=== PATIENT | female | born 1940 | race Caucasian/White ===

== ENCOUNTER 2016-03-17 09:24 | Emergency (ER) | payer MEDICARE ==
[2016-03-17 10:25] VITALS: BP 231/101
[2016-03-17] MEDS ORDERED: Acetaminophen TAB* 325 MG PO ONE (10:43)
== END 2016-03-17 10:55 | disposition left against medical advice (07) ==
LOC: UCEAST 09:24
DX: N39.0 Urinary tract infection, site not specified (principal); Z53.21 Procedure and treatment not carried out due to patient leaving prior to being seen by health care provider

== ENCOUNTER 2016-06-28 21:13 | Observation (INO) | payer MEDICARE ==
[2016-06-28] MEDS ORDERED: NS 0.9% 1000 ML* 2,000 ML IV ONE (22:08)
[2016-06-28] MEDS ORDERED: Ondansetron INJ* 2 MG/ML VIAL IV ONE (22:13)
[2016-06-28 22:22] LABS: Hematocrit 36 % (35-47); Hemoglobin 11.8 g/dl (12.0-16.0); Mean Corpuscular HGB Conc 33 g/dl (31-36); Mean Corpuscular Hemoglobin 29 pg (27-31); Mean Corpuscular Volume 89 fL (80-97); Mean Platelet Volume 8 um3 (7.4-10.4); Red Blood Count 4.08 10^6/ul (4.0-5.4); Red Cell Distribution Width 16 % (10.5-15); White Blood Count 14.1 10^3/ul (3.5-10.8)
[2016-06-28 22:38] LABS: Albumin 3.2 g/dL (3.2-5.2); BUN/Creatinine Ratio 22.5 (8-20); C Reactive Protein 18.27 mg/L (< 5.00); Calcium 8.9 mg/dL (8.6-10.3); EGFR African American 47.9 (>60); EGFR Non-African American 37.3 (>60); Globulin 2.8 g/dL (2-4); Magnesium 1.9 mg/dL (1.9-2.7); Potassium 3.5 mmol/L (3.5-5.0); Total Bilirubin 0.4 mg/dL (0.2-1.0)
[2016-06-28 22:40] LABS: Troponin I 0.01 ng/mL (<0.04)
--- NOTE | 2016-06-28 22:47 | RAD ---
Indication: Syncope. Single frontal view of the chest performed at 2219 hours was reviewed. Comparison is made with previous exam dated December 16, 2015. No mediastinal shift is noted. Heart is of normal size and configuration. Lung mann appear clear. IMPRESSION: NO ACTIVE CARDIOPULMONARY DISEASE IS NOTED.
--- NOTE | 2016-06-28 22:48 | RAD ---
Indication: Left wrist injury 3 views of the left wrist demonstrates a nondisplaced fracture through the distal radius. Dorsal angulation is noted. IMPRESSION: Fracture of the distal radius metaphysis with dorsal angulation..
[2016-06-28 23:05] LABS: TSH (Thyroid Stimulating Horm) 11.51 mcIU/mL (0.34-5.60)
[2016-06-28] MEDS ORDERED: metroNIDAZOLE IV 500 MG/100ML* 500 MG/100 ML BAG IVPB ONE (23:51)
[2016-06-28] MEDS ORDERED: Ciprofloxacin 400MG IVPREMIX(* 400 MG/200 ML BAG IVPB ONE (23:51)
[2016-06-29] MEDS ORDERED: Iodixanol* (CONTRAST) 320 MG/ML 100 ML SDV IV ONE (00:09)
[2016-06-29] MEDS ORDERED: Morphine INJ* 4 MG/ML 1 ML SYRINGE IV ONE (01:30)
--- NOTE | 2016-06-29 04:20 | HP ---
H&P (Free Text) History and Physical: PCP: Grant Small MD Date/Time of Evaluation: 06/29/2016 0420 CC: syncope HPI: Mrs Zepeda is a 75YO female HX orthostatic hypotension w/ 2nd syncope who has been having constipation for the past few days progressing to included N/V today. She was upstairs at home when she developed the urge to defecate, stood and went down a flight of stairs noticing light-headed/wooziness. She made it to the restroom vanity and the next thing she awoke on the floor with L wrist pain. Her drove her to ED where a distal L radius FX was found. Work up was otherwise notable for a d-dimer >[address] chest/abd/pel W negative for PE or acute pathology. ECG NSR rate 76, no ischemia. WBCs are 14k 94% neutrophils likely representing demarginalization. BUN/cre are 31/1.38, baseline 30/0.8. TSH is 11.5. After arriving at [facility] [place], she had another episode of emesis. She denies black or bloody emesis or stool. Stool today has been loose, but not watery. PMedHx recurrent aspiration pneumonitis COPD on oxygen HTN HLD peripheral neuropathy orthostatic hypotension w/ 2nd syncope chronic LBP piriformis syndrome anxiety Ambulatory Orders ALPRAZolam TAB* [Xanax TAB*] 0.25 mg PO Q8HR PRN 03/17/13 Calcium Carbonate-Vitamin D [Calcium 500 + D 500-125 mg-Unit] 1 tab PO BID 03/17 Multivitamins/Minerals TAB* [Thera M Plus TAB*] 1 tab PO DAILY 03/17/13 Temazepam CAP* [Restoril CAP*] 15 - 30 mg PO BEDTIME PRN 03/17/13 Budesonide/Formote 160/4.5(NF) [Symbicort 160/4.5 (NF)] 2 puff INH BID 09/17/13 Gabapentin CAP(*) [Neurontin 300 CAP(*)] 600 mg PO QAM 07/23/14 oxyCODONE TAB* [Roxycodone TAB 5 mg*] 5 - 10 mg PO Q4H PRN 09/17/14 Gabapentin CAP(*) [Neurontin 300 CAP(*)] 900 mg PO BEDTIME 08/06/15 Valsartan TAB* [Diovan TAB*] 160 mg PO DAILY 08/06/15 Metoprolol Succinate XL TAB* [Toprol XL TAB*] 50 mg PO BID 12/16/15 Omeprazole CAP* [Prilosec CAP* 20 MG] 20 mg PO BID 12/16/15 amLODIPine TAB* [Norvasc TAB*] 5 mg PO DAILY 12/16/15 Gabapentin TAB(NF) 300 mg PO SEE INSTRUCTIONS 06/29/16 Methocarbamol* 500 mg PO TID 06/29/16 Allergies No Known Allergies Allergy (Verified 09/17/14 12:30) PSurgHx hysterectomy SocHx: former smoker w/ ~25PYHX, no alcohol or recreational drugs; lives with her ; full code status FamHx: Mother passed in her 50s 2nd CAD. Father passed in his 40s 2nd CAD. Sister w/ HX CAD. ROS: as above, otherwise reviewed and all were negative Constitutional: NAD, normally developed, overweight elderly white female vitals: Vital Signs Temp 36.2 C 06/28/16 21:17 Pulse 68 06/29/16 04:00 Resp 14 06/29/16 04:00 BP 101/50 06/29/16 04:00 Pulse Ox 99 06/29/16 04:00 Intake & Output 06/28/16 06/28/16 06/29/16 11:59 23:59 11:59 Intake Total 1999 Balance 1999 Weight 65.771 kg Intake: IV Fluids 1999 HEENM: atraumatic; sclera/conjunctiva: non-icteric/clear; hearing: clinically intact; oropharynx: clear, mucosa tacky Neck: soft tissue: non-tender; thyroid: normal Pulmonary: clear to auscultation bilaterally, good aeration, no accessory muscle use CV: RR/RR, normal S1S2, no carotid bruit, no jugular venous distention, 2+ B DP/ PT, no edema Abdominal: soft, non-distended, non-tender, no rebound/guarding/rigidity, normoactive bowel sounds, no hepatosplenomegaly or masses, no costovertebral angle tenderness Musculoskeletal: general: L wrist spint, otherwise grossly intact; gait: unsteady Integumental: normal appearance and texture of exposed skin Psychiatric orientation: AA&O to PPS affect: calm mood: cooperative eye contact: good content: reliable memory: absent regarding event responses: timely insight: good Testing: Lab Results 06/28/16 06/28/16 06/28/16 Range/Units 22:15 22:15 22:15 WBC 14.1 H (3.5-10.8) 10^3/ul RBC 4.08 (4.0-5.4) 10^6/ul Hgb 11.8 L (12.0-16.0) g/dl Hct 36 (35-47) % MCV 89 (80-97) fL MCH 29 (27-31) pg MCHC 33 (31-36) g/dl RDW 16 H (10.5-15) % Plt Count 280 (150-450) 10^3/ul MPV 8 (7.4-10.4) um3 Neut % (Auto) 94.4 H (38-83) % Lymph % (Auto) 4.7 L (25-47) % Brule % (Auto) 0.5 L (1-9) % Eos % (Auto) 0.2 (0-6) % Baso % (Auto) 0.2 (0-2) % Absolute Neuts (auto) 13.3 H (1.5-7.7) 10^3/ul Absolute Lymphs (auto) 0.7 L (1.0-4.8) 10^3/ul Absolute Monos (auto) 0.1 (0-0.8) 10^3/ul Absolute Eos (auto) 0 (0-0.6) 10^3/ul Absolute Basos (auto) 0 (0-0.2) 10^3/ul Absolute Nucleated RBC 0.01 10^3/ul Nucleated RBC % 0 INR (Anticoag Therapy) 0.86 L (0.89-1.11) APTT 24.8 L (26.0-36.3) seconds D-Dimer, Quantitative > 1050 H (Less Than 230) ng/mL Sodium 140 (133-145) mmol/L Potassium 3.5 (3.5-5.0) mmol/L Chloride 107 (101-111) mmol/L Carbon Dioxide 25 (22-32) mmol/L Anion Gap 8 (2-11) mmol/L BUN 31 H (6-24) mg/dL Creatinine 1.38 H (0.51-0.95) mg/dL Est GFR ( Amer) 47.9 (>60) Est GFR (Non-Af Amer) 37.3 (>60) BUN/Creatinine Ratio 22.5 H (8-20) Glucose 95 (70-100) mg/dL Lactic Acid (0.5-2.0) mmol/L Calcium 8.9 (8.6-10.3) mg/dL Magnesium 1.9 (1.9-2.7) mg/dL Total Bilirubin 0.40 (0.2-1.0) mg/dL AST 38 (13-39) U/L ALT 27 (7-52) U/L Alkaline Phosphatase 84 (34-104) U/L Total Creatine Kinase 213 (10-223) U/L CK-MB (CK-2) 5.3 (0.6-6.3) ng/mL Troponin I 0.01 (<0.04) ng/mL C-Reactive Protein 18.27 H (< 5.00) mg/L B-Natriuretic Peptide ( - 100) pg/mL Total Protein 6.0 L (6.4-8.9) g/dL Albumin 3.2 (3.2-5.2) g/dL Globulin 2.8 (2-4) g/dL Albumin/Globulin Ratio 1.1 (1-3) Lipase 14 (11.0-82.0) U/L TSH 11.51 H (0.34-5.60) mcIU/mL 06/28/16 06/28/16 Range/Units 22:15 22:15 WBC (3.5-10.8) 10^3/ul RBC (4.0-5.4) 10^6/ul Hgb (12.0-16.0) g/dl Hct (35-47) % MCV (80-97) fL MCH (27-31) pg MCHC (31-36) g/dl RDW (10.5-15) % Plt Count (150-450) 10^3/ul MPV (7.4-10.4) um3 Neut % (Auto) (38-83) % Lymph % (Auto) (25-47) % Brule % (Auto) (1-9) % Eos % (Auto) (0-6) % Baso % (Auto) (0-2) % Absolute Neuts (auto) (1.5-7.7) 10^3/ul Absolute Lymphs (auto) (1.0-4.8) 10^3/ul Absolute Monos (auto) (0-0.8) 10^3/ul Absolute Eos (auto) (0-0.6) 10^3/ul Absolute Basos (auto) (0-0.2) 10^3/ul Absolute Nucleated RBC 10^3/ul Nucleated RBC % INR (Anticoag Therapy) (0.89-1.11) APTT (26.0-36.3) seconds D-Dimer, Quantitative (Less Than 230) ng/mL Sodium (133-145) mmol/L Potassium (3.5-5.0) mmol/L Chloride (101-111) mmol/L Carbon Dioxide (22-32) mmol/L Anion Gap (2-11) mmol/L BUN (6-24) mg/dL Creatinine (0.51-0.95) mg/dL Est GFR ( Amer) (>60) Est GFR (Non-Af Amer) (>60) BUN/Creatinine Ratio (8-20) Glucose (70-100) mg/dL Lactic Acid 1.2 (0.5-2.0) mmol/L Calcium (8.6-10.3) mg/dL Magnesium (1.9-2.7) mg/dL Total Bilirubin (0.2-1.0) mg/dL AST (13-39) U/L ALT (7-52) U/L Alkaline Phosphatase (34-104) U/L Total Creatine Kinase (10-223) U/L CK-MB (CK-2) (0.6-6.3) ng/mL Troponin I (<0.04) ng/mL C-Reactive Protein (< 5.00) mg/L B-Natriuretic Peptide 164 H ( - 100) pg/mL Total Protein (6.4-8.9) g/dL Albumin (3.2-5.2) g/dL Globulin (2-4) g/dL Albumin/Globulin Ratio (1-3) Lipase (11.0-82.0) U/L TSH (0.34-5.60) mcIU/mL ECG, personally reviewed: NSR rate 76, no ischemia CXR, personally reviewed: IMPRESSION: NO ACTIVE CARDIOPULMONARY DISEASE IS NOTED. CT chest/abd/pel W, personally reviewed: IMPRESSION: Moderate emphysema. Increasing mild mediastinal and bilateral hilar adenopathy is nonspecific, possibly reactive. Small hiatal hernia. Gallstones. Questionable L adrenal adenoma is unchanged and may be followed up with non-emergent MRI as clinically indicated. Questionable sold L renal mass Vs hemorrhagic or proteinaceous cyst is unchanged and may be confirmed with ultrasound as clinically indicated. No definite acute pathology. XRY L wrist, personally reviewed: IMPRESSION: Fracture of the distal radius metaphysis with dorsal angulation. Impression: 75F HX orthostatic hypotension w/ 2nd syncope and recurrent aspiration pneumonitis presents with syncope, elevated WBCs, and L wrist FX DIAGNOSIS & PLAN Primary syncope consistent w/ HX of syncope 2nd orthostatic hypotension : telemetry : fall precautions N/V/loose stool w/ dehydration : suspect gastroenteritis vs fecal impaction : anti-emetics : stool softener : IVFs MAIKOL : suspect pre-renal 2nd dehydration : IVFs, trend L wrist FX : consider inpatient vs outpatient orthopedic surgery consult : pain control mildly elevated TSH : recommend rechecking in 3-4 weeks via PCP outpatient Secondary COPD : continue supplemental oxygen : albuterol nebs : mometasone/formoterol : tiotropium : incentive spirometry HTN : continue valsartan, metoprolol, & amlodipine HLD : low fat diet peripheral neuropathy : continue gabapentin chronic LBP : continue oxycodone & methocarbamol anxiety : continue alprazolam GERD : continue omeprazole Admission Rational: observation for syncope w/ L wrist FX DVTp: heparin SQ Code Status: full HCP:
[2016-06-29] MEDS ORDERED: ALPRAZolam TAB* 0.25 MG PO PRN (04:37)
[2016-06-29] MEDS ORDERED: Temazepam CAP* 15 MG PO PRN (04:37)
[2016-06-29] MEDS ORDERED: Albuterol 2.5 MG/3 ML NEB.SOL* (0.083%) INH PRN (05:14)
[2016-06-29] MEDS ORDERED: NS 0.9% 1000 ML* 1,000 ML IV SCH (05:15)
[2016-06-29] MEDS ORDERED: Ondansetron INJ* 2 MG/ML VIAL IV PRN (05:15)
--- NOTE | 2016-06-29 08:08 | ED ---
Arlyn Del Toro Salem, scribed for Javy Russo MD on 06/28/16 at 2204 . Syncope/Near Syncope - HPI Summary HPI Summary: Patient is a 75 y/o female who presents to the ED per EMS s/p syncope episode earlier today. She states she was on the way to the restroom when she had the episode (unwitnessed). She currently reports SOB, lightheadedness, dizziness, and loose stool. Pt states that she was constipated the last few days, but states she has had loose stool twice today, as well as vomiting. She denies blood in stool or tarry stool. Pt also denies CP. She also reports injury to left wrist. Pt denies taking blood thinners. - History Of Current Complaint Chief Complaint: EDSyncope Time Seen by Provider: 06/28/16 21:54 Hx Obtained From: Patient Onset/Duration: Gradual Onset, Lasting Hours, Resolved Timing: Intermittent Episode Lasting Context: Unwitnessed Aggravating Factor(s): Nothing Alleviating Factor(s): Nothing Associated Signs And Symptoms: Dizzy, Lightheadedness, Vomiting, Other - Loose stool. SOB. - Allergies/Home Medications Allergies/Adverse Reactions: Allergies Allergy/AdvReac Type Severity Reaction Status Date / Time No Known Allergies Allergy Verified 09/17/14 12:30 Home Medications: Home Medications Gabapentin TAB(NF) 300 mg PO SEE INSTRUCTIONS 06/29/16 [History Confirmed ] Methocarbamol* 500 mg PO TID 06/29/16 [History Confirmed 06/29/16] PMH/Surg Hx/FS Hx/Imm Hx Endocrine/Hematology History: Reports: Hx Anemia Denies: Hx Anticoagulant Therapy, Hx Diabetes, Hx Systemic Lupus Erythematosus, Hx Thyroid Disease Cardiovascular History: Reports: Hx Hypercholesterolemia, Hx Hypertension, Hx Syncope - PSYCHOGENIC SYNCOPE Denies: Hx Congestive Heart Failure, Hx Pacemaker/ICD, Other Cardiovascular Problems/Disorders Respiratory History: Reports: Hx Asthma, Hx Chronic Bronchitis, Hx Chronic Obstructive Pulmonary Disease (COPD), Hx Pneumonia, Other Respiratory Problems/ Disorders GI History: Reports: Hx Gastroesophageal Reflux Disease, Hx Gastrointestinal Bleed Denies: Hx Ulcer History: Reports: Hx Acute Renal Failure, Hx Renal Disease - HX OF ARF Musculoskeletal History: Reports: Hx Back Problems - back pain, Other Musculoskeletal History - OSTEOPENIA & FIBROMYALIGA Denies: Hx Rheumatoid Arthritis, Hx Osteoporosis Sensory History: Reports: Hx Contacts or Glasses Denies: Hx Hearing Aid Opthamlomology History: Reports: Hx Contacts or Glasses Neurological History: Reports: Hx Seizures - PSYCHOGENIC/VASOGENIC SEIZURES, Other Neuro Impairments/Disorders - 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 Thoracentesis, lung bx Hx Anesthesia Reactions: No - Immunization History Date of Tetanus Vaccine: n Date of Influenza Vaccine: ukn Infectious Disease History: Denies: Hx Clostridium Difficile, Hx Hepatitis, Hx Human Immunodeficiency Virus (HIV), Hx of Known/Suspected MRSA, Hx Shingles, Hx Tuberculosis, Hx Known/ Suspected VRE, Hx Known/Suspected VRSA, History Other Infectious Disease, Traveled Outside the [place] in Last 30 Days - Family History Known Family History: Positive: Renal Disease - Social History Alcohol Use: None Hx Substance Use: No Substance Use Type: Reports: None Hx Tobacco Use: Yes Smoking Status (MU): Former Smoker Type: Cigarettes Length of Time of Smoking/Using Tobacco: 40 YRS Have You Smoked in the Last Year: No Review of Systems Negative: Fever Negative: Chest Pain Positive: Shortness Of Breath Positive: Vomiting Positive: other - Loose stool. No blood in stool or tarry stool. Neurological: Other - Lightheadedness. Dizziness. Positive: Syncope All Other Systems Reviewed And Are Negative: Yes Physical Exam Triage Information Reviewed: Yes Vital Signs On Initial Exam: Initial Vitals Temp Pulse Resp BP Pulse Ox 97.1 F 75 16 85/46 88 06/28/16 21:17 06/28/16 21:17 06/28/16 21:17 06/28/16 21:17 06/28/16 21:17 Vital Signs Reviewed: Yes Appearance: Positive: No Pain Distress, Ill-Appearing - Moderately. Skin: Positive: Warm, Skin Color Reflects Adequate Perfusion, Dry Head/Face: Positive: Normal Head/Face Inspection Eyes: Positive: EOMI, ОЛЬГА ENT: Positive: Other - DMM. Neck: Positive: Supple, Nontender Respiratory/Lung Sounds: Positive: Clear to Auscultation, Breath Sounds Present Cardiovascular: Positive: RRR Abdomen Description: Positive: Soft, Other: - Mild diffuse abd tenderness. Bowel Sounds: Positive: Hypoactive Musculoskeletal: Positive: Normal, Strength/ROM Intact Neurological: Positive: Normal, Sensory/Motor Intact, Alert, Oriented to Person Place, Time Psychiatric: Positive: Affect/Mood Appropriate Diagnostics - Vital Signs Vital Signs Temp Pulse Resp BP Pulse Ox 06/28/16 21:17 97.1 F 75 16 85/46 88 - Laboratory Lab Results: Lab Results 06/28/16 06/28/16 06/28/16 Range/Units 22:15 22:15 22:15 WBC 14.1 H (3.5-10.8) 10^3/ul RBC 4.08 (4.0-5.4) 10^6/ul Hgb 11.8 L (12.0-16.0) g/dl Hct 36 (35-47) % MCV 89 (80-97) fL MCH 29 (27-31) pg MCHC 33 (31-36) g/dl RDW 16 H (10.5-15) % Plt Count 280 (150-450) 10^3/ul MPV 8 (7.4-10.4) um3 Neut % (Auto) 94.4 H (38-83) % Lymph % (Auto) 4.7 L (25-47) % Foard % (Auto) 0.5 L (1-9) % Eos % (Auto) 0.2 (0-6) % Baso % (Auto) 0.2 (0-2) % Absolute Neuts (auto) 13.3 H (1.5-7.7) 10^3/ul Absolute Lymphs (auto) 0.7 L (1.0-4.8) 10^3/ul Absolute Monos (auto) 0.1 (0-0.8) 10^3/ul Absolute Eos (auto) 0 (0-0.6) 10^3/ul Absolute Basos (auto) 0 (0-0.2) 10^3/ul Absolute Nucleated RBC 0.01 10^3/ul Nucleated RBC % 0 INR (Anticoag Therapy) 0.86 L (0.89-1.11) APTT 24.8 L (26.0-36.3) seconds D-Dimer, Quantitative > 1050 H (Less Than 230) ng/mL Sodium 140 (133-145) mmol/L Potassium 3.5 (3.5-5.0) mmol/L Chloride 107 (101-111) mmol/L Carbon Dioxide 25 (22-32) mmol/L Anion Gap 8 (2-11) mmol/L BUN 31 H (6-24) mg/dL Creatinine 1.38 H (0.51-0.95) mg/dL Est GFR ( Amer) 47.9 (>60) Est GFR (Non-Af Amer) 37.3 (>60) BUN/Creatinine Ratio 22.5 H (8-20) Glucose 95 (70-100) mg/dL Lactic Acid (0.5-2.0) mmol/L Calcium 8.9 (8.6-10.3) mg/dL Magnesium 1.9 (1.9-2.7) mg/dL Total Bilirubin 0.40 (0.2-1.0) mg/dL AST 38 (13-39) U/L ALT 27 (7-52) U/L Alkaline Phosphatase 84 (34-104) U/L Total Creatine Kinase 213 (10-223) U/L CK-MB (CK-2) 5.3 (0.6-6.3) ng/mL Troponin I 0.01 (<0.04) ng/mL C-Reactive Protein 18.27 H (< 5.00) mg/L B-Natriuretic Peptide ( - 100) pg/mL Total Protein 6.0 L (6.4-8.9) g/dL Albumin 3.2 (3.2-5.2) g/dL Globulin 2.8 (2-4) g/dL Albumin/Globulin Ratio 1.1 (1-3) Lipase 14 (11.0-82.0) U/L TSH 11.51 H (0.34-5.60) mcIU/mL 06/28/16 06/28/16 Range/Units 22:15 22:15 WBC (3.5-10.8) 10^3/ul RBC (4.0-5.4) 10^6/ul Hgb (12.0-16.0) g/dl Hct (35-47) % MCV (80-97) fL MCH (27-31) pg MCHC (31-36) g/dl RDW (10.5-15) % Plt Count (150-450) 10^3/ul MPV (7.4-10.4) um3 Neut % (Auto) (38-83) % Lymph % (Auto) (25-47) % Foard % (Auto) (1-9) % Eos % (Auto) (0-6) % Baso % (Auto) (0-2) % Absolute Neuts (auto) (1.5-7.7) 10^3/ul Absolute Lymphs (auto) (1.0-4.8) 10^3/ul Absolute Monos (auto) (0-0.8) 10^3/ul Absolute Eos (auto) (0-0.6) 10^3/ul Absolute Basos (auto) (0-0.2) 10^3/ul Absolute Nucleated RBC 10^3/ul Nucleated RBC % INR (Anticoag Therapy) (0.89-1.11) APTT (26.0-36.3) seconds D-Dimer, Quantitative (Less Than 230) ng/mL Sodium (133-145) mmol/L Potassium (3.5-5.0) mmol/L Chloride (101-111) mmol/L Carbon Dioxide (22-32) mmol/L Anion Gap (2-11) mmol/L BUN (6-24) mg/dL Creatinine (0.51-0.95) mg/dL Est GFR ( Amer) (>60) Est GFR (Non-Af Amer) (>60) BUN/Creatinine Ratio (8-20) Glucose (70-100) mg/dL Lactic Acid 1.2 (0.5-2.0) mmol/L Calcium (8.6-10.3) mg/dL Magnesium (1.9-2.7) mg/dL Total Bilirubin (0.2-1.0) mg/dL AST (13-39) U/L ALT (7-52) U/L Alkaline Phosphatase (34-104) U/L Total Creatine Kinase (10-223) U/L CK-MB (CK-2) (0.6-6.3) ng/mL Troponin I (<0.04) ng/mL C-Reactive Protein (< 5.00) mg/L B-Natriuretic Peptide 164 H ( - 100) pg/mL Total Protein (6.4-8.9) g/dL Albumin (3.2-5.2) g/dL Globulin (2-4) g/dL Albumin/Globulin Ratio (1-3) Lipase (11.0-82.0) U/L TSH (0.34-5.60) mcIU/mL Result Diagrams: 06/28/16 22:15 06/28/16 22:15 Lab Statement: Any lab studies that have been ordered have been reviewed, and results considered in the medical decision making process. - Radiology CXR Radiology Interpretation Completed By: Radiologist - IMPRESSION: NO ACTIVE CARDIOPULMONARY DISEASE IS NOTED. LEFT WRIST XR Radiology Interpretation Completed By: Radiologist - IMPRESSION: Fracture of the distal radius metaphysis with dorsal angulation.. - CT CHEST/ABD/PELVIS CT Interpretation Completed By: Radiologist - CT IMPRESSION: Moderate emphysema. Increasing mild mediastinal and bilateral hilar adenopathy is nonspecific, possibly reactive. Small hiatal hernia. Gallstones. Questionable left adrenal adenoma is unchanged and may be followed up with nonemergent MRI as clinically indicated. Questionable arsenio left renal mass versus hemorrhagic proteinaceous cyst, is unchanged and may be confirmed with ultrasound as clinically indicated. No definite acute pathology. - EKG 2118 EKG Interpretation: NSR @ 76 bpm. Flip T in 3. No ectopy. Re-Evaluation - Re-Evaluation First Eval Re-Evaluation Time: 22:11 Second Eval Re-Evaluation Time: 22:26 Third Eval Re-Evaluation Time: 00:45 Fourth Eval Re-Evaluation Time: 04:06 Course/Dx Course Of Treatment: NO CRITICAL CARE TIME Assessment/Plan: LEFT WRIST SPLINTED IN ED. AFTER IVF, PATIENT'S BP NORMALIZED. ADMIT HOSPITALIST STABLE. - Diagnoses Provider Diagnoses: Syncope, Hypotension, Vomiting and diarrhea, Wrist fracture, left - Physician Notifications Discussed Care Of Patient With: Dr. Gann (hospitalist) @ 0111. Will admit. Discharge - Discharge Plan Condition: Stable Disposition: ADMITTED TO [facility] documentation as recorded by the Arlyn norman Salem accurately reflects the service I personally performed and the decisions made by , Javy Russo MD.
[2016-06-29 08:21] LABS: Hematocrit 31 % (35-47); Hemoglobin 9.9 g/dl (12.0-16.0); Mean Corpuscular HGB Conc 32 g/dl (31-36); Mean Corpuscular Hemoglobin 29 pg (27-31); Mean Corpuscular Volume 91 fL (80-97); Mean Platelet Volume 8 um3 (7.4-10.4); Red Blood Count 3.38 10^6/ul (4.0-5.4); Red Cell Distribution Width 16 % (10.5-15); White Blood Count 10.7 10^3/ul (3.5-10.8)
[2016-06-29 08:31] LABS: BUN/Creatinine Ratio 25.2 (8-20); Calcium 7.6 mg/dL (8.6-10.3); EGFR African American 59.2 (>60)
--- NOTE | 2016-06-29 08:34 | RAD ---
INDICATION: Pain under right breast and right upper back. Relevant surgical history includes hysterectomy. COMPARISON: CT chest, abdomen and pelvis dated August 06, 2015 TECHNIQUE: Multidetector CT angiography images of the chest, abdomen and pelvis were obtained from the lung apices to the ischial tuberosities following the injection of 80 mL of Visipaque 320 intravenous contrast. ANGIOGRAPHIC FINDINGS: There are no filling defects of the centrilobular pulmonary arteries to indicate acute pulmonary embolism. There is coarse calcification at the anterior aortic ring. There is calcified atherosclerosis overlying the arch of the aorta. The thoracic aorta exhibits somewhat eccentric mural atheroma with a asymmetric extension along the posterior wall of the superiormost descending thoracic aorta (axial image 49 and sagittal image 64). Mixed attenuation atherosclerosis continues inferiorly into the abdominal aorta as far as the bifurcation. There is no pathologic dilatation or evidence of acute aortic dissection. Calcified atherosclerosis is seen as far as the iliac and proximal femoral arteries. NON-ANGIOGRAPHIC FINDINGS: CHEST: The lungs exhibit diffuse centrilobular emphysematous changes. At the right middle lobe (image 30) there is a 4 mm pulmonary nodule unchanged from the August 06, 2015 CT examination and faintly visible on the 1314 CT examination. There is mild bibasilar dependent hypoventilatory change There are no large pleural effusions. There is no mediastinal or hilar lymphadenopathy. The heart is very mildly enlarged. There is no pericardial effusion. ABDOMEN \T\ PELVIS: The liver, spleen and pancreas are grossly normal in appearance. Hyperdense material in the dependent portion of the gallbladder is most consistent with stones and/or sludge. There is no evidence of biliary obstruction or acute inflammatory change of the gallbladder. The right adrenal gland is normal. There is a 9 mm nodule at the left adrenal gland (coronal image 61) is unchanged since the sixth 1314 CT examination. The right kidney is normal in appearance without focal mass, calcification or signs of hydronephrosis. At the anterior aspect left upper renal pole there is a 1.7 cm enhancing nodule that corresponds to a similar 1.4 cm nodule seen on the August 06, 2015 CT examination and a 1.3 cm nodule in the July 26, 2014 CT examination. . The small and large bowel are not distended. There is no gross retroperitoneal or mesenteric lymphadenopathy. The uterus is surgically absent. There is evidence of healed rib fractures at the posterior right 10th 11th ribs.. There are no sinister bone lesions. IMPRESSION: 1. No CTA evidence of acute angiographic abnormality including pulmonary embolism or aortic dissection. 2. Again seen is a suspicious 1.6 cm nodule at the left kidney that is increased slightly in size from the [address] examinations. A potential slow-growing renal cell carcinoma is not excluded. Further imaging characterization can be made with contrast-enhanced MRI of the kidneys or renal ultrasound. 3. Additional chronic, degenerative and iatrogenic findings described in the body the report unlikely to be directly related to the patient's acute presentation.
[2016-06-29] MEDS ORDERED: Spiriva Inhaler DEVICE* 1 EACH DEVICE INH ONE (09:00)
[2016-06-29] MEDS: Gabapentin CAP(*) 300 MG PO SCH (09:11)
[2016-06-29] MEDS: Acetaminophen TAB* 325 MG PO PRN (09:11)
[2016-06-29] MEDS: Valsartan TAB* 160 MG PO SCH (09:11)
[2016-06-29] MEDS: Docusate CAP* 100 MG PO SCH ×2 (09:11→21:04)
[2016-06-29] MEDS: Omeprazole CAP* 20 MG PO SCH ×2 (09:11→21:04)
[2016-06-29] MEDS: Metoprolol Succinate XL TAB* 50 MG PO SCH ×2 (09:11→21:09)
[2016-06-29] MEDS: Methocarbamol TAB* 500 MG PO SCH ×5 (09:11→21:05)
[2016-06-29] MEDS: amLODIPine TAB* 5 MG PO SCH (09:11)
[2016-06-29] MEDS: Mometasone/Formoter 200/5 MDI INH SCH ×2 (09:14→20:00)
[2016-06-29] MEDS: Tiotropium CAP.INH* CAP.INH/18 MCG INH SCH (09:16)
[2016-06-29] MEDS: oxyCODONE TAB* 5 MG TAB PO PRN ×3 (10:10→21:38)
[2016-06-29] MEDS ORDERED: Levothyroxine TAB* 25 MCG TAB PO ONE (11:19)
[2016-06-29] MEDS ORDERED: NS 0.9% 1000 ML* 1,000 ML IV ONE (11:33)
[2016-06-29 11:56] LABS: Urine Bacteria Absent (Absent); Urine Bilirubin Negative (Negative); Urine Glucose Negative (Negative); Urine Nitrite Negative (Negative)
[2016-06-29] MEDS: NS 0.9% 1000 ML* 1,000 ML IV SCH (18:12)
--- NOTE | 2016-06-29 18:12 | PN ---
Subjective Date of Service: 06/29/16 Interval History: Feels better. Appetite OK. Objective Active Medications: Acetaminophen (Tylenol Tab*) 650 mg PO Q6H PRN PRN Reason: FEVER/PAIN Last Admin: 06/29/16 09:11 Dose: 650 mg Albuterol (Ventolin 2.5 Mg/3 Ml Neb.Rosana*) 2.5 mg INH Q2H PRN PRN Reason: SOB/WHEEZING Alprazolam (Xanax Tab*) 0.25 mg PO Q8HR PRN PRN Reason: ANXIETY Amlodipine Besylate (Norvasc Tab*) 5 mg PO DAILY [facility] Last Admin: 06/29/16 09:11 Dose: 5 mg Docusate Sodium (Colace Cap*) 200 mg PO BID [facility] Last Admin: 06/29/16 09:11 Dose: 200 mg Gabapentin (Neurontin Cap(*)) 600 mg PO QAM [facility] Last Admin: 06/29/16 09:11 Dose: 600 mg Gabapentin (Neurontin Cap(*)) 900 mg PO BEDTIME [facility] Heparin Sodium (Porcine) (Heparin Vial(*)) 5,000 units SUBCUT Q8HR [facility] Sodium Chloride (Ns 0.9% 1000 Ml*) 1,000 mls @ 50 mls/hr IV PER RATE [facility] Levothyroxine Sodium (Synthroid Tab*) 25 mcg PO DAILY@0600 [facility] Methocarbamol (Robaxin Tab*) 500 mg PO TID [facility] Last Admin: 06/29/16 15:42 Dose: 500 mg Metoprolol Succinate (Toprol Xl Tab*) 50 mg PO BID [facility] Last Admin: 06/29/16 09:11 Dose: 50 mg Mometasone Furoate/Formoterol Fumar (Dulera 200/5 Mdi*) 2 puff INH BID [facility] Last Admin: 06/29/16 09:14 Dose: 2 puff Omeprazole (Prilosec Cap*) 20 mg PO BID [facility] Last Admin: 06/29/16 09:11 Dose: 20 mg Ondansetron HCl (Zofran Inj*) 4 mg IV Q6H PRN PRN Reason: NAUSEA Last Admin: 06/29/16 12:13 Dose: 4 mg Oxycodone HCl (Roxycodone Tab*) 5 mg PO Q4H PRN PRN Reason: PAIN Last Admin: 06/29/16 16:35 Dose: 5 mg Temazepam (Restoril Cap*) 15 mg PO BEDTIME PRN PRN Reason: SLEEP Tiotropium [place] (Spiriva Cap.Inh*) 1 cap INH DAILY [facility] Last Admin: 06/29/16 09:16 Dose: 1 can Tramadol HCl (Ultram*) 50 mg PO Q6H PRN PRN Reason: PAIN Valsartan (Diovan Tab*) 160 mg PO DAILY [facility] Last Admin: 06/29/16 09:11 Dose: 160 mg Vital Signs 06/29/16 06/29/16 06/29/16 05:30 06:00 06:10 Temperature Pulse Rate 67 70 71 Respiratory Rate Blood Pressure 93/52 97/29 109/33 (mmHg) O2 Sat by Pulse 97 97 97 Oximetry 06/29/16 06/29/16 06/29/16 06:30 07:00 08:00 Temperature Pulse Rate 71 67 71 Respiratory 20 19 18 Rate Blood Pressure 114/47 112/69 (mmHg) O2 Sat by Pulse 97 100 100 Oximetry 06/29/16 06/29/16 06/29/16 08:09 08:42 08:43 Temperature Pulse Rate 65 70 Respiratory 15 20 Rate Blood Pressure 152/56 163/57 (mmHg) O2 Sat by Pulse 99 100 Oximetry 06/29/16 06/29/16 06/29/16 08:44 09:00 10:00 Temperature Pulse Rate 68 67 Respiratory 18 10 Rate Blood Pressure 153/59 (mmHg) O2 Sat by Pulse 100 100 Oximetry 06/29/16 06/29/16 06/29/16 10:15 11:00 11:44 Temperature Pulse Rate 74 66 62 Respiratory 17 11 20 Rate Blood Pressure 132/45 142/55 (mmHg) O2 Sat by Pulse 99 100 97 Oximetry 06/29/16 06/29/16 06/29/16 12:00 13:00 14:00 Temperature Pulse Rate 67 69 72 Respiratory 20 14 20 Rate Blood Pressure (mmHg) O2 Sat by Pulse 93 93 94 Oximetry 06/29/16 06/29/16 06/29/16 15:00 15:47 16:00 Temperature Pulse Rate 62 68 Respiratory 11 16 18 Rate Blood Pressure 128/95 (mmHg) O2 Sat by Pulse 100 98 Oximetry 06/29/16 06/29/16 17:00 17:52 Temperature 97.7 F Pulse Rate 66 75 Respiratory 21 16 Rate Blood Pressure 150/67 (mmHg) O2 Sat by Pulse 99 98 Oximetry Oxygen Devices in Use Now: Nasal Cannula Appearance: Alert, sitting up in ICU bed. In good spirits. Looks comfortable. Ears/Nose/Mouth/Throat: Clear Oropharnyx, Mucous Membranes Moist Neck: NL Appearance and Movements; NL JVP, No Thyroid Enlargement, Masses Respiratory: Symmetrical Chest Expansion and Respiratory Effort, Clear to Auscultation, Clear to Percussion Abdominal: NL Sounds; No Tenderness; No Distention, No Hepatosplenomegaly Extremities: No Edema, No Clubbing, Cyanosis, - Skin: No Rash or Ulcers, No Nodules or Sclerosis, - Neurological: Alert and Oriented x 3, NL Sensation Result Diagrams: 06/29/16 08:05 06/29/16 08:05 Additional Lab and Data: Lab Results 06/28/16 06/28/16 06/28/16 Range/Units 22:15 22:15 22:15 WBC 14.1 H (3.5-10.8) 10^3/ul RBC 4.08 (4.0-5.4) 10^6/ul Hgb 11.8 L (12.0-16.0) g/dl Hct 36 (35-47) % MCV 89 (80-97) fL MCH 29 (27-31) pg MCHC 33 (31-36) g/dl RDW 16 H (10.5-15) % Plt Count 280 (150-450) 10^3/ul MPV 8 (7.4-10.4) um3 Neut % (Auto) 94.4 H (38-83) % Lymph % (Auto) 4.7 L (25-47) % Cecil % (Auto) 0.5 L (1-9) % Eos % (Auto) 0.2 (0-6) % Baso % (Auto) 0.2 (0-2) % Absolute Neuts (auto) 13.3 H (1.5-7.7) 10^3/ul Absolute Lymphs (auto) 0.7 L (1.0-4.8) 10^3/ul Absolute Monos (auto) 0.1 (0-0.8) 10^3/ul Absolute Eos (auto) 0 (0-0.6) 10^3/ul Absolute Basos (auto) 0 (0-0.2) 10^3/ul Absolute Nucleated RBC 0.01 10^3/ul Nucleated RBC % 0 INR (Anticoag Therapy) 0.86 L (0.89-1.11) APTT 24.8 L (26.0-36.3) seconds D-Dimer, Quantitative > 1050 H (Less Than 230) ng/mL Sodium 140 (133-145) mmol/L Potassium 3.5 (3.5-5.0) mmol/L Chloride 107 (101-111) mmol/L Carbon Dioxide 25 (22-32) mmol/L Anion Gap 8 (2-11) mmol/L BUN 31 H (6-24) mg/dL Creatinine 1.38 H (0.51-0.95) mg/dL Est GFR ( Amer) 47.9 (>60) Est GFR (Non-Af Amer) 37.3 (>60) BUN/Creatinine Ratio 22.5 H (8-20) Glucose 95 (70-100) mg/dL Lactic Acid (0.5-2.0) mmol/L Calcium 8.9 (8.6-10.3) mg/dL Magnesium 1.9 (1.9-2.7) mg/dL Total Bilirubin 0.40 (0.2-1.0) mg/dL AST 38 (13-39) U/L ALT 27 (7-52) U/L Alkaline Phosphatase 84 (34-104) U/L Total Creatine Kinase 213 (10-223) U/L CK-MB (CK-2) 5.3 (0.6-6.3) ng/mL Troponin I 0.01 (<0.04) ng/mL C-Reactive Protein 18.27 H (< 5.00) mg/L B-Natriuretic Peptide ( - 100) pg/mL Total Protein 6.0 L (6.4-8.9) g/dL Albumin 3.2 (3.2-5.2) g/dL Globulin 2.8 (2-4) g/dL Albumin/Globulin Ratio 1.1 (1-3) Lipase 14 (11.0-82.0) U/L TSH 11.51 H (0.34-5.60) mcIU/mL 06/28/16 06/28/16 Range/Units 22:15 22:15 WBC (3.5-10.8) 10^3/ul RBC (4.0-5.4) 10^6/ul Hgb (12.0-16.0) g/dl Hct (35-47) % MCV (80-97) fL MCH (27-31) pg MCHC (31-36) g/dl RDW (10.5-15) % Plt Count (150-450) 10^3/ul MPV (7.4-10.4) um3 Neut % (Auto) (38-83) % Lymph % (Auto) (25-47) % Cecil % (Auto) (1-9) % Eos % (Auto) (0-6) % Baso % (Auto) (0-2) % Absolute Neuts (auto) (1.5-7.7) 10^3/ul Absolute Lymphs (auto) (1.0-4.8) 10^3/ul Absolute Monos (auto) (0-0.8) 10^3/ul Absolute Eos (auto) (0-0.6) 10^3/ul Absolute Basos (auto) (0-0.2) 10^3/ul Absolute Nucleated RBC 10^3/ul Nucleated RBC % INR (Anticoag Therapy) (0.89-1.11) APTT (26.0-36.3) seconds D-Dimer, Quantitative (Less Than 230) ng/mL Sodium (133-145) mmol/L Potassium (3.5-5.0) mmol/L Chloride (101-111) mmol/L Carbon Dioxide (22-32) mmol/L Anion Gap (2-11) mmol/L BUN (6-24) mg/dL Creatinine (0.51-0.95) mg/dL Est GFR ( Amer) (>60) Est GFR (Non-Af Amer) (>60) BUN/Creatinine Ratio (8-20) Glucose (70-100) mg/dL Lactic Acid 1.2 (0.5-2.0) mmol/L Calcium (8.6-10.3) mg/dL Magnesium (1.9-2.7) mg/dL Total Bilirubin (0.2-1.0) mg/dL AST (13-39) U/L ALT (7-52) U/L Alkaline Phosphatase (34-104) U/L Total Creatine Kinase (10-223) U/L CK-MB (CK-2) (0.6-6.3) ng/mL Troponin I (<0.04) ng/mL C-Reactive Protein (< 5.00) mg/L B-Natriuretic Peptide 164 H ( - 100) pg/mL Total Protein (6.4-8.9) g/dL Albumin (3.2-5.2) g/dL Globulin (2-4) g/dL Albumin/Globulin Ratio (1-3) Lipase (11.0-82.0) U/L TSH (0.34-5.60) mcIU/mL Assess/Plan/Problems-Billing Assessment: - Patient Problems (1) Vasovagal syncope Current Visit: Yes Status: Acute Code(s): R55 - SYNCOPE AND COLLAPSE SNOMED Code(s): 742311468 Comment: Episode occurred when she was hurrying to the BR to have a BM and then had some emesis several times. She states she has had numerous episodes of syncope due to orthostatic hypotension in the past. Extra liter NSS given on due to her dizziness when standing on 06/29. (2) COPD (chronic obstructive pulmonary disease) Current Visit: No Status: Chronic Priority: Medium Code(s): J44.9 - CHRONIC OBSTRUCTIVE PULMONARY DISEASE, UNSPECIFIED SNOMED Code(s): 70839084 Comment: Stable. On O2 at home. PRN albuterol available. Continue Spiriva. (3) Hypertension Current Visit: No Status: Chronic Priority: Medium Code(s): I10 - ESSENTIAL (PRIMARY) HYPERTENSION SNOMED Code(s): 89517553 Comment: BP well controlled. Continue valsartan, metoprolol. (4) Hypothyroid Current Visit: Yes Status: Acute Code(s): E03.9 - HYPOTHYROIDISM, UNSPECIFIED SNOMED Code(s): 72625380 Comment: Several high TSH levels in her record. Start levothryoxine 25 mcg on 06/29. Status and Disposition: Monitor orthostatic BP, gait.
[2016-06-29] MEDS: traMADol TAB* 50 MG PO PRN (18:34)
[2016-06-29] MEDS ORDERED: Gabapentin CAP(*) 300 MG PO SCH (21:00)
[2016-06-30] MEDS ORDERED: Levothyroxine TAB* 25 MCG TAB PO SCH (06:00)
[2016-06-30] MEDS: Heparin VIAL(*) 5000 UNITS/ML VIAL (FIVE THOUSAND) SUBCUT SCH ×2 (06:14→14:38)
[2016-06-30] MEDS: Tiotropium CAP.INH* CAP.INH/18 MCG INH SCH (08:13)
[2016-06-30] MEDS: Mometasone/Formoter 200/5 MDI INH SCH (08:13)
[2016-06-30] MEDS: amLODIPine TAB* 5 MG PO SCH (08:24)
[2016-06-30] MEDS: Gabapentin CAP(*) 300 MG PO SCH (08:24)
[2016-06-30] MEDS: Docusate CAP* 100 MG PO SCH (08:24)
[2016-06-30] MEDS: Methocarbamol TAB* 500 MG PO SCH ×2 (08:25→14:38)
[2016-06-30] MEDS: Valsartan TAB* 160 MG PO SCH (08:26)
[2016-06-30] MEDS: Metoprolol Succinate XL TAB* 50 MG PO SCH (08:26)
[2016-06-30] MEDS: Omeprazole CAP* 20 MG PO SCH (08:26)
[2016-06-30] MEDS: oxyCODONE TAB* 5 MG TAB PO PRN (08:28)
[2016-06-30] MEDS: Acetaminophen TAB* 325 MG PO PRN (11:05)
[2016-06-30] MEDS: traMADol TAB* 50 MG PO PRN (11:05)
[2016-06-30] MEDS: NS 0.9% 1000 ML* 1,000 ML IV SCH (14:38)
[2016-06-30 16:13] VITALS: BP 162/84
--- NOTE | 2016-06-30 22:50 | CONS ---
ORTHOPEDIC CONSULTATION: DATE OF CONSULT/DICTATION: 06/30/16 ADMITTING PROVIDER: Dr. Yin. ATTENDING ORTHOPEDIST: Dr. Irizarry (DICTATED BY KATHIA TARIQ) CHIEF COMPLAINT: Left wrist pain, status post fall. HISTORY OF PRESENT ILLNESS: The patient is a 75-year-old female who had an episode of orthostatic hypotension and mechanical fall on the date of admission , 06/29/16. She fell in her bathroom and awoke with left wrist pain. She was brought to the emergency department by her where x-rays of the wrist revealed a nondisplaced mildly dorsal angulated distal radius fracture. She was then splinted during her hospitalization here. She is scheduled to be discharged in roughly [address] Yin, and he was requesting orthopedic evaluation of the wrist and followup in the office with Dr. Irizarry. PAST MEDICAL HISTORY: Significant for history of aspiration pneumonitis, COPD, hypertension, hyperlipidemia, history of orthostatic hypotension, piriformis syndrome, anxiety, history of peripheral neuropathy. PAST SURGICAL HISTORY: She has had a hysterectomy. MEDICATIONS: 1. Xanax. 2. Calcium. 3. Multivitamin. 4. Restoril. 5. Symbicort. 6. Gabapentin. 7. Oxycodone. 8. Valsartan. 9. Metoprolol. 10. Omeprazole. 11. Amlodipine. 12. Methocarbamol. ALLERGIES: No known drug allergies. SOCIAL HISTORY: She used to smoke cigarettes. She denies use of alcohol or recreational drugs. Lives with her . ORTHOPEDIC PHYSICAL EXAMINATION: The patient currently has a well-formed, well - padded left upper extremity wrist splint on the arm. She has some mild swelling of the left thumb with mild ecchymosis. The remainder of her fingers are minimally edematous. She is able to move them all and has full sensation with good capillary refill in all digits. Her wrist pain is minimal to moderate at worse. DIAGNOSTIC STUDIES/LAB DATA: X-ray examination reviewed does show a distal radius fracture with mild dorsal angulation. She has advanced CMC arthritis noted as well. IMPRESSION: Distal radius fracture. PLAN: The patient is to be discharged within the next hour. I will make Dr. Irizarry aware of this patient. She may or may not need additional reduction and casting, although the current position may be adequate. This is the patient's nondominant hand. I will alert the office that this patient will require a followup in the office within [address] Irizarry. KATHIA TARIQ [id number]/CPS #: [id number] MTDD
--- NOTE | 2016-07-04 07:06 | PN ---
Hospitalist Progress Note . HOSPITALIST DISCHARGE NOTE: See dc instructions and summary by me. Patient stable for dc dc instructions reviewed with the patient at the bedside. DC patient home today.
--- NOTE | 2016-07-04 08:57 | DS ---
CC: Triny Small MD; Celso Irizarry MD DISCHARGE SUMMARY: DATE OF ADMISSION: 06/29/16 DATE OF DISCHARGE: 06/30/16 STATUS DURING HOSPITALIZATION: Inpatient. PRIMARY CARE PROVIDER: Triny Small MD CONSULTING ORTHOPEDIC SURGEON: Celso Irizarry MD, Orthopedic Surgery, [facility]. PRINCIPAL DISCHARGE DIAGNOSIS: Vasovagal syncope in the setting of ongoing illness with fall and fr acture of her left wrist - followup with Orthopedic Surgery is arranged. SECONDARY DIAGNOSES: 1. Recurrent aspiration pneumonitis. 2. Chronic obstructive pulmonary disease - on oxygen. 3. Hypertension. 4. Hyperlipidemia. 5. Peripheral neuropathy. 6. Orthostatic hypotension secondary to syncope in the past. 7. Chronic low back pain. 8. Piriformis syndrome. 9. Anxiety disorder. DISCHARGE MEDICATION REGIMEN: 1. Represcribed Synthroid 25 mcg by mouth daily. 2. Oxycodone 5 mg by mouth every 4 hours as needed, not to exceed 4 doses per day. 3. Tiotropium. 4. Spiriva 1 inhalation once daily. 5. Acetaminophen 650 mg by mouth every 6 hours as needed. 6. Restoril 15 or 30 mg by mouth at bedtime as needed. 7. Multivitamin 1 tablet by mouth once daily. 8. Calcium carbonate with vitamin D 500/125 strength 1 tablet by mouth once daily. 9. Alprazolam 0.25 mg by mouth every 8 hours as needed. 10. Budesonide/formoterol 160/4.5 - Symbicort - 2 puffs inhaled daily. 11. Gabapentin 600 mg by mouth in the morning/900 mg by mouth at bedtime. 12. Diovan 160 mg by mouth daily (valsartan). 13. Amlodipine 5 mg by mouth daily. 14. Omeprazole 20 mg by mouth twice daily. 15. Metoprolol XL 50 mg by mouth twice daily. 16. Methocarbamol 500 mg by mouth 3 times daily. 17. Roxicodone - separate from prescribed dose above - 5 or 10 mg every 4 hours as needed, not to e xceed 4 mg per day. HISTORY OF PRESENT ILLNESS AND HOSPITAL COURSE: Please see the H and P by Dr. Gary Gann on 0 06/29/16. In brief, Ms. Zepeda is a 75-year-old female with orthostatic hypotension and secondary sy ncope who has been having constipation and nausea and vomiting prior to admission. She was upstairs at home when she developed the urge to defecate and went down a flight of stairs, noticing lighthea dedness and "wooziness." The patient came to the rest room and the next thing she awoke on the floo r with left wrist pain. The patient's drove her to the emergency room, where she was diagno sed with a distal left radius fracture. The patient did have an elevated D-dimer prompting a CT ches t, abdomen and pelvis with contrast which was negative for PE or other pathology. The patient had n o ischemia on EKG. She had white blood cell count of 14,000 with left shift and neutrophilia likely representing demarginalization. The patient's BUN and creatinine were at baseline. Her TSH was el evated and apparently I believe that she was not consistently taking her thyroid medications, so thi s was reapplied. The patient did well overnight. She had no further symptomatology. She was seen by Orthopedic surg marcos who noted the fracture is nondisplaced and likely could be kept as is, but that the patient coul d seek an outpatient neurology consultation with Dr. Irizarry and that they would provide their contac t information to the patient. Ms. Zepeda will follow up with Dr. Small next week on Monday to ass ure that she is feeling at baseline. We discussed the possibility of a home health monitor (Medic Alert bracelet) that when she feels poo rly she can call for help if she needs. She said she would consider this, but I do not believe she was ready to act and wanted to talk to Dr. Small further about it. TIME SPENT: Total time taken to discharge Ms. Zepeda was 40 minutes, greater than half the time was spent going over the discharge instructions at the bedside and explaining [id number] instru ctions. The patient was stable on discharge. [id number]/[facility] #: [id number]
== END 2016-06-30 16:55 | disposition home or self-care (01) ==
LOC: ED 21:13 → INTOOBSV 06-29 05:02 → ICU 06-29 05:02 → UNDOADMIN 06-29 05:02 → MED 06-29 17:39 → OBSVTOIN 06-29 18:16 → INTOOBSV 06-29 18:16
PROVIDERS: ADMIT Hospitalist; ATTEND Internal Medicine
DX: R55 Syncope and collapse (principal); I95.1 Orthostatic hypotension; E86.0 Dehydration; R11.2 Nausea with vomiting, unspecified; R19.7 Diarrhea, unspecified; N17.9 Acute kidney failure, unspecified; S59.202A Unspecified physeal fracture of lower end of radius, left arm, initial encounter for closed fracture; W18.11XA Fall from or off toilet without subsequent striking against object, initial encounter; Y92.002 Bathroom of unspecified non-institutional (private) residence as the place of occurrence of the external cause; J44.9 Chronic obstructive pulmonary disease, unspecified; I10 Essential (primary) hypertension; E78.5 Hyperlipidemia, unspecified; G62.9 Polyneuropathy, unspecified; M54.5 Low back pain; G89.29 Other chronic pain; I51.7 Cardiomegaly; K21.9 Gastro-esophageal reflux disease without esophagitis; R94.6 Abnormal results of thyroid function studies; Z87.891 Personal history of nicotine dependence; Z79.899 Other long term (current) drug therapy; R06.02 Shortness of breath; R42 Dizziness and giddiness
CPT/HCPCS: 36415; 71010; 71275; 74177; 80048; 80053; 81003; 81015; 82270; 82550; 82553; 83605; 83690; 83735; 83880; 84443; 84484; 85025; 85379; 85610; 85730; 86140; 87040; 93005; 94640; 94760; 96361; 96365; 96366; 96367; 96375; 96376; 99284; A9270-GY; G0378; G8978-GP-CH; G8978-GP-CI; G8979-GP-CH; G8980-GP-CH; G8980-GP-CI; J0744; J1644; J2270; J2405; Q9967

== ENCOUNTER 2016-07-12 11:55 | Day surgery (SDC) | payer MEDICARE ==
--- NOTE | 2016-07-05 06:56 | HP ---
HISTORY AND PHYSICAL: DATE OF ADMISSION/SURGERY: 07/12/16 DATE OF OFFICE VISIT: 07/04/16 SURGEON: Camille Gibbs MD (DICTATED BY KATHIA HERMAN) PROCEDURE: ORIF of the left wrist. CHIEF COMPLAINT: Left wrist pain. HISTORY OF PRESENT ILLNESS: Ms. Zepeda is a 75-year-old female, who had an orthostatic hypotension episode last week causing her to faint, she landed on her left wrist. She was taken to the emergency department where she had x-rays taken, told she had a distal radius fracture, so she was placed into a splint. She is here today for followup. PAST MEDICAL HISTORY: COPD, hypothyroidism, hypertension, GERD, and kidney disease. PAST SURGICAL HISTORY: Cataract removal, hysterectomy, bilateral wrist arthroscopies. CURRENT MEDICATIONS: 1. Methocarbamol. 2. Gabapentin. 3. Cymbalta. 4. Synthroid. 5. Xanax. 6. Metoprolol. 7. Symbicort. 8. Spiriva. 9. Omeprazole. 10. Temazepam. 11. Lipitor. 12. Amlodipine. 13. Diovan. 14. Oxycodone. ALLERGIES: None. FAMILY HISTORY: Heart disease and colon cancer. SOCIAL HISTORY: She is a 75-year-old female, she lives with her . She is a former smoker. Denies use of drugs or alcohol. REVIEW OF SYSTEMS: A complete 14-point review of systems was reviewed with the patient. Positive for a recent syncopal episode. Positive for shortness of breath and COPD. Positive for hypothyroidism. She denies any history of anesthesia problems. She denies history of DVT, PE, hepatitis C, or HIV. PHYSICAL EXAMINATION GENERAL: She is well-developed, well-nourished, in no acute distress. VITAL SIGNS: She stands 5 feet tall, weighs 145 pounds. Her blood pressure is 154/94, heart rate is 82. HEENT: Normocephalic, atraumatic. NECK: Supple. No palpable lymph nodes. PULMONARY: The lungs are clear to auscultation bilaterally. CARDIO: Regular rate and rhythm. Strong S1, S2. ABDOMEN: Soft, nontender, nondistended. NEUROLOGIC: She is alert and oriented x3. Cranial nerves II through XII are intact. MUSCULOSKELETAL: Left upper extremity: She has tenderness to palpation along the left medial and lateral wrist with swelling. She is able to move all fingers. She has good capillary refill. 2+ distal radius pulse. She has full range of motion of her left elbow, left shoulder, decreased range of motion of the left wrist. DIAGNOSTIC STUDIES: X-rays of the left wrist show a left distal radius fracture. ASSESSMENT AND PLAN: Ms. Zepeda is a 75-year-old female with complaints of left wrist pain after she fell a week ago, landing on her left wrist suffering left distal radius fracture. We are awaiting respiratory clearance from her primary care physician and we will likely proceed with an ORIF of the left wrist next week. We will have her follow with Dr. Gibbs 10 to 14 days after the surgery. KATHIA HERMAN [id number]/CPS #: [id number] MTDD
[~2016-07-12 11:55] MED LIST: Buffered Lidocaine 1% SYRIN* 5 ML/SYR SYRINGE INTRADERM ONE; Buffered Lidocaine 1% SYRIN* 5 ML/SYR SYRINGE ONE; Famotidine IV* 10 MG/ML 2 ML (20 mg) IV ONE; Famotidine IV* 10 MG/ML 2 ML (20 mg) ONE; Metoclopramide TAB* 10 MG ONE; Metoclopramide TAB* 10 MG PO ONE; ceFAZolin 2 GM PREMIX(*) 2 GM/50 ML BAG IVPB ONE
[2016-07-12] MEDS ORDERED: fentaNYL* 50 MCG/ML 2 ML VIAL (100 MCG VIAL) ONE ×3 (12:53→17:16)
[2016-07-12] MEDS ORDERED: Ketorolac INJ* 30 MG/ML 1 ML VIAL ONE (12:53)
[2016-07-12] MEDS ORDERED: Propofol* 10 MG/ML 20 ML BTL IV PUSH ONE (12:53)
[2016-07-12] MEDS ORDERED: Lidocaine 2% PF * 5 ML VIAL ONE (12:53)
[2016-07-12] MEDS ORDERED: KETAMINE HCL* 50 MG/ML 10 ML VIAL ONE (12:53)
[2016-07-12] MEDS ORDERED: Ondansetron INJ* 2 MG/ML VIAL ONE (12:53)
[2016-07-12] MEDS ORDERED: Dexamethasone IV* 4 MG/ML 1 ML (4 MG) ONE (12:53)
[2016-07-12] MEDS ORDERED: Midazolam* 1 MG/ML 5 ML VIAL (5 MG) ONE (12:53)
[2016-07-12] MEDS ORDERED: Bupivacaine 0.5% SDV PF* 30 ML VIAL ONE (15:13)
[2016-07-12] MEDS ORDERED: Ondansetron INJ* 2 MG/ML VIAL IV PRN (17:14)
[2016-07-12] MEDS ORDERED: Levalbuterol 0.63MG/3ML NEB INH PRN (17:14)
[2016-07-12] MEDS ORDERED: HYDROmorphone* 1 MG/ML 1 ML SYR IV PRN (17:14)
[2016-07-12] MEDS ORDERED: oxyCODONE/Acetamin 5/325 MG* TAB PO PRN (17:14)
[2016-07-12] MEDS ORDERED: oxyCODONE/Acetamin 5/325 MG* TAB ONE (17:16)
[2016-07-12] MEDS: fentaNYL* 50 MCG/ML 2 ML VIAL (100 MCG VIAL) IV PRN ×3 (17:18→17:54)
[2016-07-12 20:23] VITALS: BP 157/67
--- NOTE | 2016-07-13 08:46 | OP ---
OPERATIVE NOTE: DATE OF OPERATION: 07/12/16 - [facility] DATE OF : 40 ATTENDING SURGEON: Camille Gibbs MD. SECOND MATE: KATHIA Ward. ANESTHESIOLOGIST: Dr. Fuller. ANESTHESIA: General. PRE-OP DIAGNOSIS: Comminuted displaced fracture of the left distal radius. POST-OP DIAGNOSIS: As above. OPERATIVE PROCEDURE: Open reduction and internal fixation of the 3-part left comminuted displaced distal radius fracture. HARDWARE USED: Synthes volar distal radius locking plate, this is the LCP plate , 3- hole shaft and a 6-hole head, 2.4 locking screws were used x4, 2.4 cortical screws x3, and one 2.7 cortical screw. COMPLICATIONS: None. TOURNIQUET TIME: 41 minutes. ESTIMATED BLOOD LOSS: Less than 50 cc. SPECIMEN: None. BRIEF HISTORY/INDICATIONS: Ms. Zepeda is a 75-year-old female who has orthostatic hypotension. She had a fall related to this, fracturing the left wrist almost 2 weeks ago. She was seen in my clinic with a dorsally displaced comminuted distal radius fracture. I gave the patient non-operative and operative treatment options. These included local anesthesia with closed reduction. She refused this and wished to proceed with open reduction and internal fixation of the fracture. She was cleared for surgery by her primary care physician and horse doctor. Informed consent was obtained from the patient. She understood the risks of the procedure included, but were not limited to, bleeding, infection, damage to nearby structures, continued pain, need for further surgery, failure of the fracture to heal, hardware failure, stroke, heart attack, blood clot, and . She wished to proceed. INTRAOPERATIVE FINDINGS: Intraoperatively, the patient was noted to have a displaced comminuted fracture of the distal radius with osteopenia. There were greater than 3 pieces involving the radial styloid and distal radius bone. Osteopenia was noted throughout the case. DESCRIPTION OF PROCEDURE: Ms. Zepeda was identified in the preanesthesia unit. Her left lower extremity was marked as the correct operative side. Informed consent was signed and placed in the chart. She was taken to the operating room and placed under general anesthesia. A tourniquet was placed on the left upper arm. Left upper extremity was prepped and draped in the usual sterile fashion. Preop time-out was made to correctly identify the patient's side and site. Appropriate perioperative antibiotics were given within 1 hour of incision. A standard 5 cm volar incision was made over the region of the FCR. Tenotomy dissection was made carefully through subcutaneous tissue. The FCR was identified. Soft tissue and tendons were carefully retracted in an ulnar and radial fashion until the quadratus muscle was identified along the volar distal radius. This was carefully cleared with a 15-blade and elevator. The fracture site was immediately visualized. A hematoma or fibrinous debris was carefully removed with a rongeur and curette. The fracture was visibly mobile, an attempt at reduction maneuver was performed to reduce the dorsally displaced fragment. AP and lateral C-arm views showed satisfactory reduction of the fracture. The radial styloid portion of the fracture was visualized. It was noted that the fracture was quite comminuted. A Synthes volar distal radius locking plate, type 2.4 VA-LCP was chosen, this was a 3-hole plate with a 6-hole head. This was placed on the volar distal radius. Multiple C-arm views were obtained to ensure proper placement of the plate on the bone. Two K-wires were used to secure the plate. At this point, two cortical screws were placed in the distal row in order to pull the bone down to the plate and ensure improvement in the tilt. This was performed without difficulty. Four additional locking screws were placed in the distal plate. AP and lateral C-arm views confirmed that the volar tilt was restored. Next, 3 cortical screws were placed in the proximal plate. These were length 10, 10, and 10 mm. At this point, the AP and lateral C-arm views showed satisfactory fracture reduction with satisfactory placement of hardware. There were no screws near the joint space. A prior cortical screw was pushed out for a locking screw, which was 2.7. At this point, the tourniquet was turned down and the wound was copiously irrigated with sterile saline. Subcutaneous tissue was closed using interrupted 2-0 Vicryl. Skin was closed using running 3-0 Monocryl and Dermabond. Sterile dressings were applied as well as volar plaster splint. The patient's anesthesia was reversed without difficulty. She was taken to the PACU in stable condition. Intended weightbearing will be nonweightbearing to left upper extremity. She will have aspirin for DVT prophylaxis. She will have pain medications and follow up in 1 week's time for wound check. [id number]/[facility] #: [id number] NINA
== END 2016-07-12 20:24 | disposition home or self-care (01) ==
LOC: OR 11:55
PROVIDERS: ATTEND Orthopaedic Surgery Adult Reconstructive Orthopaedic Surgery
DX: S52.502A Unspecified fracture of the lower end of left radius, initial encounter for closed fracture (principal); I95.1 Orthostatic hypotension; M85.832 Other specified disorders of bone density and structure, left forearm; Z87.891 Personal history of nicotine dependence; E03.9 Hypothyroidism, unspecified; J44.9 Chronic obstructive pulmonary disease, unspecified; W19.XXXA Unspecified fall, initial encounter; Y92.9 Unspecified place or not applicable
CPT/HCPCS: A9270-GY; C1713; C1776; J0690; J1100; J1885; J2250; J2405; J2704; J3010

== ENCOUNTER 2017-02-14 09:48 | Emergency (ER) | payer MEDICARE ==
[2017-02-14 10:26] VITALS: BP 190/66
--- NOTE | 2017-02-14 11:01 | UC ---
Respiratory Complaint HPI - HPI Summary HPI Summary: 76 yo WF c/o cough with yellow green sputum since URI x 10days. Has h/o PNA in the last year. Denies f/c/SOB but URI worsened with productive sputum. - History of Current Complaint Chief Complaint: UCRespiratory Stated Complaint: COUGH Time Seen by Provider: 02/14/17 10:37 Hx Obtained From: Patient Onset/Duration: Gradual Onset, Lasting Days, Still Present, Worse Since Severity Initially: Moderate Severity Currently: Moderate Associated Signs And Symptoms: Positive: Pleuritic Chest Pain, URI. Negative: Fever, Chills, Wheezing, Hemoptysis, Dizziness, Calf Pain - Allergies/Home Medications Allergies/Adverse Reactions: Allergies Allergy/AdvReac Type Severity Reaction Status Date / Time No Known Allergies Allergy Verified 02/14/17 10:24 PMH/Surg Hx/FS Hx/Imm Hx Previously Healthy: Yes Other History Of: Negative For: Anticoagulant Therapy - Surgical History Surgical History: Yes Surgery Procedure, Year, and Place: HYSTERECTOMY, TUBAL LIGATION, BREAST BIOPSY , CATARACT sx. Thoracentesis, lung bx. bilat wrist arthroscopies - Family History Known Family History: Positive: Unknown, Renal Disease - Social History Alcohol Use: None Substance Use Type: None Smoking Status (MU): Former Smoker Type: Cigarettes Amount Used/How Often: smoked 40 years, 1/2 ppd Length of Time of Smoking/Using Tobacco: 40 YRS Have You Smoked in the Last Year: No When Did the Patient Quit Smoking/Using Tobacco: 11/2003 - Immunization History Most Recent Influenza Vaccination: 11/2013 Most Recent Tetanus Shot: UP TO DATE Most Recent Pneumonia Vaccination: 12/2012 Review of Systems Constitutional: Negative Skin: Negative Eyes: Negative Respiratory: Cough - yellow sputum with pleuritic CP Cardiovascular: Negative Gastrointestinal: Negative Genitourinary: Negative Motor: Negative Neurovascular: Negative Musculoskeletal: Negative Neurological: Negative Psychological: Negative All Other Systems Reviewed And Are Negative: Yes Physical Exam Triage Information Reviewed: Yes Vital Signs: Initial Vital Signs Temp 36.6 C 02/14/17 10:24 Pulse 83 02/14/17 10:24 Resp 20 02/14/17 10:24 BP 190/66 02/14/17 10:24 Pulse Ox 99 02/14/17 10:24 Eye Exam: Normal ENT Exam: Normal Dental Exam: Normal Neck exam: Normal Neck: Positive: Nontender Respiratory Exam: Normal Respiratory: Positive: Lungs clear - but mildly coarse BS B/L. Negative: No respiratory distress, No accessory muscle use, Crackles, Rhonchi, Stridor, Wheezing Cardiovascular Exam: Normal Abdominal Exam: Normal Musculoskeletal Exam: Normal Neurological Exam: Normal Psychological Exam: Normal Skin Exam: Normal UC Diagnostic Evaluation - Laboratory O2 Sat by Pulse Oximetry: 99 Respiratory Course/Dx - Course Course Of Treatment: Has h/o PNA, currently NOT hypoxic, bronchitis developed 7- 10days out after URI so it is reasonable to tx for bacterial bronchitis - Differential Dx/Diagnosis Provider Diagnoses: bronchitis Discharge - Discharge Plan Condition: Stable Disposition: HOME Prescriptions: Azithromyxin GABE (NF) [Z-Gabe (Zithromax) 250 mg tabs #6] 2 tab PO .TODAY, THEN 1 DAILY #6 tab Patient Education Materials: Acute Bronchitis (ED) Referrals: Triny Small MD [Primary Care Provider] - Additional Instructions: as tolerated
== END 2017-02-14 10:55 | disposition home or self-care (01) ==
LOC: UCEAST 09:48
DX: J40 Bronchitis, not specified as acute or chronic (principal); Z87.891 Personal history of nicotine dependence
CPT/HCPCS: 99212; G0463

== ENCOUNTER 2017-08-10 15:00 | Emergency (ER) | payer MEDICARE ==
[2017-08-10 15:42] VITALS: BP 144/65
[2017-08-10] MEDS ORDERED: Docusate LIQ* 100 MG/10 ML UDC PO PRN (16:26)
[2017-08-10] MEDS ORDERED: Docusate LIQ* 100 MG/10 ML UDC ONE (16:26)
--- NOTE | 2017-08-10 16:48 | UC ---
Ear Complaint HPI - HPI Summary HPI Summary: Patient is a 76-year-old female with a history of cerumen impaction presents to the with left ear pain. She denies any tinnitus, decreased hearing or drainage. Endorses only pain to the left ear 2 days. Denies any other symptoms including fevers, sweats or chills. - History of Current Complaint Hx Obtained From: Patient ?: No Onset/Duration: Sudden Onset Severity Initially: Moderate Severity Currently: Moderate Pain Intensity: 8 Pain Scale Used: 0-10 Numeric Associated Signs/Symptoms: Positive: Foreign Body Sensation - pain <Tracy Benjamin - Last Filed: 08/10/17 17:24> <Hafsa Mello - Last Filed: 08/10/17 17:35> - History of Current Complaint Chief Complaint: UCEar Stated Complaint: LEFT EAR COMPLAINT Time Seen by Provider: 08/10/17 15:38 - Allergies/Home Medications Allergies/Adverse Reactions: Allergies Allergy/AdvReac Type Severity Reaction Status Date / Time No Known Allergies Allergy Verified 08/10/17 15:42 PMH/Surg Hx/FS Hx/Imm Hx Previously Healthy: Yes Other History Of: Negative For: Anticoagulant Therapy - Surgical History Surgical History: Yes Surgery Procedure, Year, and Place: HYSTERECTOMY, TUBAL LIGATION, BREAST BIOPSY , CATARACT sx. Thoracentesis, lung bx. bilat wrist arthroscopies - Family History Known Family History: Positive: Unknown, Renal Disease - Social History Occupation: Unemployed Lives: With Family Alcohol Use: None Substance Use Type: None Smoking Status (MU): Former Smoker Type: Cigarettes Amount Used/How Often: smoked 40 years, 1/2 ppd Length of Time of Smoking/Using Tobacco: 40 YRS Have You Smoked in the Last Year: No When Did the Patient Quit Smoking/Using Tobacco: 11/2003 - Immunization History Most Recent Influenza Vaccination: 11/2013 Most Recent Tetanus Shot: UP TO DATE Most Recent Pneumonia Vaccination: 12/2012 <Tracy Benjamin - Last Filed: 08/10/17 17:24> Review of Systems Constitutional: Negative Skin: Negative ENT: Ear Ache Respiratory: Negative Cardiovascular: Negative Motor: Negative Neurovascular: Negative Neurological: Negative Psychological: Negative Is Patient Immunocompromised?: No All Other Systems Reviewed And Are Negative: Yes <Tracy Benjamin - Last Filed: 08/10/17 17:24> Physical Exam Triage Information Reviewed: Yes Appearance: Well-Appearing, No Pain Distress, Well-Nourished Vital Signs: Initial Vital Signs Temp 99.2 F 08/10/17 15:36 Pulse 66 08/10/17 15:36 Resp 18 08/10/17 15:36 BP 144/65 08/10/17 15:36 Pulse Ox 95 08/10/17 15:36 Vital Signs Reviewed: Yes Eye Exam: Normal Eyes: Positive: Conjunctiva Clear ENT: Positive: Other - cerumen impaction - LEFT Neck exam: Normal Neck: Positive: Supple, No Lymphadenopathy Respiratory Exam: Normal Respiratory: Positive: Chest non-tender, Lungs clear Cardiovascular Exam: Normal Cardiovascular: Positive: RRR Neurological Exam: Normal Neurological: Positive: Alert Psychological: Positive: Normal Response To Family Skin Exam: Normal <Tracy Benjamin - Last Filed: 08/10/17 17:24> Vital Signs: Initial Vital Signs Temp 99.2 F 08/10/17 15:36 Pulse 66 08/10/17 15:36 Resp 18 08/10/17 15:36 BP 144/65 08/10/17 15:36 Pulse Ox 95 08/10/17 15:36 <Hafsa Mello - Last Filed: 08/10/17 17:35> Ear Complaint Course/Dx - Course Course Of Treatment: During the course of treatment patient's evaluated for left -sided ear pain. Left ear occluded with cerumen impaction. Attempted several times to flush the ear. Also used Colace to attempt to soften this area minutes. Patient was in a fair amount of pain and we could not continue to try to irrigate the ears. She will attempt to again try to follow up with ENT early next week, but she states they did not have an appointment when she called this week. I have advised she return to the after 2-3 days of Debrox softening agent if she is unable to get in to see ENT and we will attempt to flush it again at that time. - Differential Dx/Diagnosis Differential Diagnosis/HQI/PQRI: Cerumen Impaction Provider Diagnoses: Cerumen Impaction <Tracy Benjamin - Last Filed: 08/10/17 17:24> Discharge - Sign-Out/Discharge Documenting (check all that apply): Discharge/Admit/Transfer - Billing Disposition and Condition Condition: STABLE Disposition: Home <Tracy Benjamin - Last Filed: 08/10/17 17:24> - Billing Disposition and Condition Condition: GOOD Disposition: Home <Hafsa Mello - Last Filed: 08/10/17 17:35> - Discharge Plan Condition: Good Disposition: HOME Patient Education Materials: Cerumen Impaction (ED) Referrals: Varghese Treadwell MD [Medical Doctor] - Triny Small MD [Primary Care Provider] - Additional Instructions: Debrox (over the counter) Follow up with ENT Call tomorrow for an appt If you are unable to get in to see them, use the debrox for the next 2-3 days and return to the Attestation Statement User Type: Provider - I was available for consult. This patient was seen by the BERNIE. The patient was not presented to, seen by, or examined by me. -Foxj <Hafsa Mello - Last Filed: 08/10/17 17:35>
== END 2017-08-10 17:20 | disposition home or self-care (01) ==
LOC: UCEAST 15:00
DX: H61.22 Impacted cerumen, left ear (principal); Z87.891 Personal history of nicotine dependence
CPT/HCPCS: 99213; A9270-GY; G0463

== ENCOUNTER 2017-09-17 09:30 | Emergency (ER) | payer MEDICARE ==
[2017-09-17] MEDS ORDERED: NS 0.9% 1000 ML* 1,000 ML IV ONE (09:42)
--- OUTSIDE RECORDS SUMMARY | 2017-09-17 09:51 | XMS REPORT ---
:1940 External Reference #:[id number] Author Organization Leonel Bradley M.D., [facility] Address [address] [facility] [address] [place] [address] Phone [phone] Care Team Providers Name Role Phone Geovanny AVERY, Mary Care Team Information [employer] Unavailable Mary Small MD Primary Care Physician Unavailable Payers Type Date Identification Numbers Payment Provider Subscriber Commercial Policy Number: [id number] BS Medicare Tanya Zepeda PayID: [id number] [address] [address] [place] [address] Problems Date Description Provider Status Onset: 04/23/2013 Neoplastic disease Leonel Bradley M.D. Active Onset: 06/11/2013 Lens Replaced By Other Means Leonel Bradley M.D. Active Onset: 06/11/2013 Vitreous degeneration Leonel Bradley M.D. 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 Active Onset: 10/21/2014 Presbyopia Karie Madrid O.D. Active Onset: 10/21/2014 Regular astigmatism Karie Madrid O.D. Active Onset: 10/21/2014 Hypermetropia Karie Madrid O.D. 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 Calcium 500+D Active Tablets Unknown 000 Combivent Active Aerosol 20-100mcg/ Unknown Respimat 000 Act Metoprolol Active Tablets 100mg Unknown Tartrate [address] 20mg Unknown 000 Temazepam Active Capsules 15mg Unknown 000 Methocarbamol Active Tablets 500mg Unknown 000 Simvastatin Active Tablets 20mg Unknown 000 Xanax Active Tablets 0.25mg Unknown 000 Gabapentin Active Capsules 100mg Unknown 000 Amlodipine Active Tablets 5mg Unknown Besylate 000 Levothyroxine Active Tablets 25mcg Take 1 Unknown Sodium 000 Tablet By Mouth Every Day Vital Signs Date Vital Result Comment 08/25/2017 Intraocular Pressure Right Eye 14 mmHg Intraocular Pressure Left Eye 14 mmHg 08/24/2016 Intraocular Pressure Right Eye 14 mmHg Intraocular Pressure Left Eye 14 mmHg 04/29/2015 Intraocular Pressure Right Eye 13 mmHg Intraocular Pressure Left Eye 13 mmHg 10/21/2014 Intraocular Pressure Right Eye 13 mmHg Intraocular Pressure Left Eye 13 mmHg 06/11/2013 Intraocular Pressure Right Eye 14 mmHg Intraocular Pressure Left Eye 14 mmHg Results Description No Information Procedures Date CPT Code Description Status 08/25/2017 98545 Fundus Photography W/Interpretation & Report Completed 08/25/2017 75774 Ophthalmoscopy Subsequent Completed 08/25/2017 22052 Eye Exam Est Comprehensive Completed 02/24/2017 94599 Oct Retina Completed 02/24/2017 80569 Eye Exam Est Intermediate Completed 08/24/2016 70462 Fundus Photography W/Interpretation & Report Completed 08/24/2016 82731 Ophthalmoscopy Subsequent Completed 08/24/2016 90549 Refraction Completed 08/24/2016 41862 Eye Exam Est Comprehensive Completed 10/30/2015 45938 Eye Exam Est Intermediate Completed 10/30/2015 76753 Oct Retina Completed 04/29/2015 74208 Fundus Photography W/Interpretation & Report Completed 04/29/2015 06564 Eye Exam Est Intermediate Completed 10/21/2014 47568 Ophthalmoscopy Subsequent Completed 10/21/2014 16871 Oct Retina Completed 10/21/2014 74614 Refraction Completed 10/21/2014 61990 Eye Exam Est Comprehensive Completed 06/11/2013 11490 Eye Exam Est Comprehensive Completed 06/11/2013 25873 Refraction Completed 06/11/2013 56974 Ophthalmoscopy Subsequent Completed 06/11/2013 20470 Fundus Photography W/Interpretation & Report Completed 04/23/2013 83167 External Photography W/Interpretation & Report Completed 04/23/2013 78047 Excision Lesion Eyelid Completed 02/04/2010 55384 Eye Exam Est Comprehensive Completed 12/19/2008 86237 Eye Exam Est Comprehensive Completed 11/23/2007 15163 Eye Exam Est Comprehensive Completed 11/07/2006 03718 Eye Exam Est Comprehensive Completed 02/16/2006 04122 Extracapsular Cataract Extraction W/Intraocular Lens Completed 01/16/2006 41958 Eye Exam Est Intermediate Completed 12/15/2005 62699 Extracapsular Cataract Extraction W/Intraocular Lens Completed 11/15/2005 84708 Ophthalmic Biometry By Partial Coherence Interferometry Completed W/Intra 11/15/2005 97546 Eye Exam Est Intermediate Completed 11/08/2005 78478 Refraction Completed 11/08/2005 39667 Eye Exam New Comprehensive Completed Plan of Care 08/25/2017 - Leonel Bradley M.D.[id number] Nexdtve age-related mclr degn, bilateral, intermed dry [id number] Vitreous degeneration, [id number] Presence of intraocular lensFollow up:6 mos OCT mac
--- NOTE | 2017-09-17 10:51 | RAD ---
Indication: Syncope, head injury. CT of the brain was performed without IV contrast. Comparison is made with previous exam dated August 06, 2015. Ventricular structures are midline. No midline shift is noted. The extra-axial spaces are unremarkable. Old lacunar infarct in the left basal ganglia is noted. If is unchanged from previous exam. There is no evidence of intracranial mass or hemorrhage. No other high or low density lesions are identified. Mastoid air cells and paranasal sinuses are otherwise unremarkable. IMPRESSION: No intracranial mass or hemorrhage is noted. The remainder of the exam is unchanged from previous exam of August 06, 2015.
[2017-09-17 10:56] LABS: ABS Basophils 0.1 10^3/ul (0-0.2); ABS Eosinophils 0.3 10^3/ul (0-0.6); ABS Lymphocytes 0.6 10^3/ul (1.0-4.8); ABS Monocytes 0.8 10^3/ul (0-0.8); ABS Nucleated RBC 0 10^3/ul; Eosinophil % 3.1 % (0-6); Hematocrit 35 % (35-47); Hemoglobin 11.8 g/dl (12.0-16.0); Lymphocyte % 6.4 % (25-47); Mean Corpuscular HGB Conc 34 g/dl (31-36); Mean Corpuscular Hemoglobin 30 pg (27-31); Mean Corpuscular Volume 89 fL (80-97); Mean Platelet Volume 8.1 um3 (7.4-10.4); Nucleated Red Blood Cells % 0; Platelet Count 296 10^3/ul (150-450); Red Blood Count 3.91 10^6/ul (4.00-5.40); Red Cell Distribution Width 15 % (10.5-15); White Blood Count 8.7 10^3/ul (3.5-10.8)
[2017-09-17 11:12] LABS: INR 0.79 (0.77-1.02)
[2017-09-17 11:15] LABS: EGFR Non-African American 33.2 (>60)
--- NOTE | 2017-09-17 11:28 | ED ---
Upper Extremity Pain - HPI Summary HPI Summary: Patient is a 77-year-old female presenting to the ED after a fall with possible loss of consciousness. She endorses 3 episodes of falling in the past 6 months or so. She states she intermittently feels dizzy which is the cause of her falls. She was diagnosed with orthostatic hypotension several years ago, but does not believe she has this. She endorses pain to the right wrist with obvious hematoma to the dorsum. A small laceration over the left eyebrow just superficial, 2 cm in length and does not require sutures. She denies any known cardiac history and takes no medications for any CAD. - History of Current Complaint Chief Complaint: EDHeadInjury Stated Complaint: FALL Time Seen by Provider: 09/17/17 10:12 Hx Obtained From: Patient Mechanism Of Injury: Direct Blow Onset/Duration: Started Hours Ago Timing: Constant Severity Initially: Moderate Severity Currently: Mild Pain Location: Wrist Character: Aching Aggravating Factor(s): Lifting, Flexion, Extension Alleviating Factor(s): Rest Associated Signs & Symptoms: Positive: Swelling, Bruising. Negative: Redness, Weakness, Numbness/Tingling - Risk Factors Non-Orthopedic Risk Factor: Negative DVT Risk Factors: Negative Septic Arthritis Risk Factor: Negative Compartment Syndrome Risk Factors: Pain - Allergies/Home Medications Allergies/Adverse Reactions: Allergies Allergy/AdvReac Type Severity Reaction Status Date / Time No Known Allergies Allergy Verified 09/17/17 10:53 PMH/Surg Hx/FS Hx/Imm Hx Previously Healthy: Yes Endocrine/Hematology History: Reports: Hx Thyroid Disease - hypothyroid Denies: Hx Anticoagulant Therapy, Hx Diabetes, Hx Systemic Lupus Erythematosus, Hx Anemia Cardiovascular History: Reports: Hx Hypercholesterolemia, Hx Hypertension, Hx Syncope - PSYCHOGENIC SYNCOPE Denies: Hx Congestive Heart Failure, Hx Pacemaker/ICD, Other Cardiovascular Problems/Disorders Respiratory History: Reports: Hx Asthma, Hx Chronic Bronchitis, Hx Chronic Obstructive Pulmonary Disease (COPD), Hx Pneumonia, Other Respiratory Problems/ Disorders GI History: Reports: Hx Gastroesophageal Reflux Disease, Hx Gastrointestinal Bleed, Hx Hiatal Hernia Denies: Hx Ulcer History: Reports: Hx Acute Renal Failure, Hx Renal Disease, Other Problems /Disorders - hx of sepsis r/t pneumonia and UTI none at this time Denies: Hx Dialysis Musculoskeletal History: Reports: Hx Arthritis, Hx Back Problems - back pain, Other Musculoskeletal History - OSTEOPENIA Denies: Hx Rheumatoid Arthritis, Hx Osteoporosis Sensory History: Reports: Hx Contacts or Glasses - glasses Denies: Hx Hearing Aid Opthamlomology History: Reports: Hx Contacts or Glasses - glasses Neurological History: Reports: 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 Thoracentesis, lung bx. bilat wrist arthroscopies Hx Anesthesia Reactions: No - Immunization History Date of Tetanus Vaccine: n Date of Influenza Vaccine: ukn Hx Pertussis Vaccination: No Immunizations Up to Date: Unable to Obtain/Confirm Infectious Disease History: No Infectious Disease History: Denies: Hx Clostridium Difficile, Hx Hepatitis, Hx Human Immunodeficiency Virus (HIV), Hx of Known/Suspected MRSA, Hx Shingles, Hx Tuberculosis, Hx Known/ Suspected VRE, Hx Known/Suspected VRSA, History Other Infectious Disease, Traveled Outside the [place] in Last 30 Days - Family History Known Family History: Positive: Unknown, Renal Disease - Social History Occupation: Unemployed Lives: Alone Alcohol Use: None Hx Substance Use: No Substance Use Type: Reports: None Hx Tobacco Use: Yes Smoking Status (MU): Former Smoker Type: Cigarettes Amount Used/How Often: smoked 40 years, 1/2 ppd Length of Time of Smoking/Using Tobacco: 40 YRS Have You Smoked in the Last Year: No Review of Systems Constitutional: Negative Negative: Fever, Chills, Fatigue, Skin Diaphoresis Negative: Palpitations, Chest Pain Negative: Shortness Of Breath, Cough Genitourinary: Negative Positive: no symptoms reported, see HPI Positive: Arthralgia - right dorsum hematoma and pain Positive: Bruising Neurological: Negative All Other Systems Reviewed And Are Negative: Yes Physical Exam Triage Information Reviewed: Yes Vital Signs On Initial Exam: Initial Vitals Temp Pulse Resp BP Pulse Ox 97.8 F 66 16 98/60 95 09/17/17 09:34 09/17/17 09:34 09/17/17 09:34 09/17/17 09:34 09/17/17 09:34 Vital Signs Reviewed: Yes Appearance: Positive: Well-Appearing, Well-Nourished Skin: Positive: Warm, Skin Color Reflects Adequate Perfusion Diagnostics - Vital Signs Vital Signs Temp Pulse Resp BP Pulse Ox 09/17/17 09:34 97.8 F 66 16 98/60 95 - Laboratory Lab Results: Lab Results 09/17/17 09/17/17 09/17/17 Range/Units 10:48 10:48 10:48 WBC 8.7 (3.5-10.8) 10^3/ul RBC 3.91 L (4.00-5.40) 10^6/ul Hgb 11.8 L (12.0-16.0) g/dl Hct 35 (35-47) % MCV 89 (80-97) fL MCH 30 (27-31) pg MCHC 34 (31-36) g/dl RDW 15 (10.5-15) % Plt Count 296 (150-450) 10^3/ul MPV 8.1 (7.4-10.4) um3 Neut % (Auto) 80.4 (38-83) % Lymph % (Auto) 6.4 L (25-47) % Garvin % (Auto) 9.5 H (0-7) % Eos % (Auto) 3.1 (0-6) % Baso % (Auto) 0.6 (0-2) % Absolute Neuts (auto) 7.0 (1.5-7.7) 10^3/ul Absolute Lymphs (auto) 0.6 L (1.0-4.8) 10^3/ul Absolute Monos (auto) 0.8 (0-0.8) 10^3/ul Absolute Eos (auto) 0.3 (0-0.6) 10^3/ul Absolute Basos (auto) 0.1 (0-0.2) 10^3/ul Absolute Nucleated RBC 0 10^3/ul Nucleated RBC % 0 INR (Anticoag Therapy) (0.77-1.02) Sodium 138 (135-145) mmol/L Potassium 4.3 (3.5-5.0) mmol/L Chloride 106 (101-111) mmol/L Carbon Dioxide 26 (22-32) mmol/L Anion Gap 6 (2-11) mmol/L BUN 51 H (6-24) mg/dL Creatinine 1.52 H (0.51-0.95) mg/dL Est GFR ( Amer) 40.1 (>60) Est GFR (Non-Af Amer) 33.2 (>60) BUN/Creatinine Ratio 33.6 H (8-20) Glucose 96 (70-100) mg/dL Lactic Acid 0.8 (0.5-2.0) mmol/L Calcium 9.1 (8.6-10.3) mg/dL Magnesium 2.7 (1.9-2.7) mg/dL Total Bilirubin 0.30 (0.2-1.0) mg/dL AST 14 (13-39) U/L ALT 12 (7-52) U/L Alkaline Phosphatase 93 (34-104) U/L Troponin I 0.01 (<0.04) ng/mL B-Natriuretic Peptide ( - 100) pg/mL Total Protein 6.5 (6.4-8.9) g/dL Albumin 3.4 (3.2-5.2) g/dL Globulin 3.1 (2-4) g/dL Albumin/Globulin Ratio 1.1 (1-3) TSH Pending 09/17/17 09/17/17 Range/Units 10:48 10:48 WBC (3.5-10.8) 10^3/ul RBC (4.00-5.40) 10^6/ul Hgb (12.0-16.0) g/dl Hct (35-47) % MCV (80-97) fL MCH (27-31) pg MCHC (31-36) g/dl RDW (10.5-15) % Plt Count (150-450) 10^3/ul MPV (7.4-10.4) um3 Neut % (Auto) (38-83) % Lymph % (Auto) (25-47) % Garvin % (Auto) (0-7) % Eos % (Auto) (0-6) % Baso % (Auto) (0-2) % Absolute Neuts (auto) (1.5-7.7) 10^3/ul Absolute Lymphs (auto) (1.0-4.8) 10^3/ul Absolute Monos (auto) (0-0.8) 10^3/ul Absolute Eos (auto) (0-0.6) 10^3/ul Absolute Basos (auto) (0-0.2) 10^3/ul Absolute Nucleated RBC 10^3/ul Nucleated RBC % INR (Anticoag Therapy) 0.79 (0.77-1.02) Sodium (135-145) mmol/L Potassium (3.5-5.0) mmol/L Chloride (101-111) mmol/L Carbon Dioxide (22-32) mmol/L Anion Gap (2-11) mmol/L BUN (6-24) mg/dL Creatinine (0.51-0.95) mg/dL Est GFR ( Amer) (>60) Est GFR (Non-Af Amer) (>60) BUN/Creatinine Ratio (8-20) Glucose (70-100) mg/dL Lactic Acid (0.5-2.0) mmol/L Calcium (8.6-10.3) mg/dL Magnesium (1.9-2.7) mg/dL Total Bilirubin (0.2-1.0) mg/dL AST (13-39) U/L ALT (7-52) U/L Alkaline Phosphatase (34-104) U/L Troponin I (<0.04) ng/mL B-Natriuretic Peptide 231 H ( - 100) pg/mL Total Protein (6.4-8.9) g/dL Albumin (3.2-5.2) g/dL Globulin (2-4) g/dL Albumin/Globulin Ratio (1-3) TSH Result Diagrams: 09/17/17 10:48 09/17/17 10:48 Lab Statement: Any lab studies that have been ordered have been reviewed, and results considered in the medical decision making process. Course/Dx - Course Course Of Treatment: During the course of treatment, during the course treatment , the patient's evaluated for right wrist injury, left sided laceration just above the eyebrow and dizziness which caused her to fall. CT brain obtained which shows no intracranial acute abnormalities. Right wrist x-ray obtained. Cleansed wound thoroughly.3 views of the right wrist are reviewed. There is fracture of the dorsal aspect of the. distal radius with impaction. There is likely some mild dorsal angulation. Postoperative. changes of the trapezium is noted. IMPRESSION: Fracture through the dorsal metaphysis of the distal radius. Volar splint placed. Patient will follow-up with orthopedics and has requested Dr. Irizarry or Dr. Gibbs. Adhesive applied to laceration. Patient appears well and is okay for discharge. - Diagnoses Differential Diagnosis/HQI/PQRI: Positive: Fracture (Closed), Strain, Sprain Provider Diagnoses: Radial fracture, Laceration Discharge - Sign-Out/Discharge Documenting (check all that apply): Patient Departure - Discharge Plan Condition: Stable Disposition: HOME Patient Education Materials: Wrist Fracture in Adults (ED), Skin Adhesive Care (ED) Referrals: Triny Small MD [Primary Care Provider] - Celso Irizarry MD [Medical Doctor] - Additional Instructions: Please follow up with orthopedics Keep the splint dry Ibuprofen as needed for discomfort May wash the face tomorrow gently - Billing Disposition and Condition Condition: STABLE Disposition: Home
--- NOTE | 2017-09-17 12:02 | RAD ---
Indication: Right wrist injury. 3 views of the right wrist are reviewed. There is fracture of the dorsal aspect of the distal radius with impaction. There is likely some mild dorsal angulation. Postoperative changes of the trapezium is noted. IMPRESSION: Fracture through the dorsal metaphysis of the distal radius.
[2017-09-17 13:08] VITALS: BP 138/62
== END 2017-09-17 13:12 | disposition home or self-care (01) ==
LOC: ED 09:30
DX: S52.91XA Unspecified fracture of right forearm, initial encounter for closed fracture (principal); R42 Dizziness and giddiness; S01.112A Laceration without foreign body of left eyelid and periocular area, initial encounter; W19.XXXA Unspecified fall, initial encounter; Y92.9 Unspecified place or not applicable; Z87.891 Personal history of nicotine dependence
CPT/HCPCS: 36415; 70450; 80053; 83605; 83735; 83880; 84443; 84484; 85025; 85610; 93005; 99283

== ENCOUNTER 2017-09-24 13:34 | Inpatient (IN) | payer MEDICARE ==
--- NOTE | 2017-09-24 13:47 | ED ---
Syncope/Near Syncope - HPI Summary HPI Summary: This is scribe Aimee Tony documenting for attending Amara Bundy MD This patient is a 77 year old F BIBA to [facility] after a syncopal event this morning in her kitchen. EMS states the family called emergency services. Pt is minimally responsive on admission to the ED. EMS reports family mentioned that facial ecchymosis and right wrist cast are from a prior fall. HPI is limited. Patient is LEVEL 5 caveat. Patient was re-evaluated after being informed that she is now responsive and alert by patients nurse, Keith, at 13:40 roughly ten minutes after initial evaluation. She states the she often has syncopal episodes and has been told she has orthostatic hypotension. She only complains of right knee pain. Denies headache. She states that she fell last week. I, Dr. Bundy ,personally performed the services described in this documentation as scribed in my presence and it is both accurate and complete - History Of Current Complaint Chief Complaint: EDSyncope Time Seen by Provider: 09/24/17 13:47 Hx Obtained From: Patient, EMS Onset/Duration: Sudden Onset Timing: Hours Context: Unwitnessed Activity At Onset: Unknown Associated Head Trauma: No Aggravating Factor(s): Nothing Alleviating Factor(s): Nothing Associated Signs And Symptoms: AMS, Head Trauma (Recent) - last week, sutures to left eyebrow,cast right wrist, Other - knee pain Related History: Similar Episode/Dx as - orthostatic hypotension, vasovagal syncope, psychogenic syncope Frequency: Episodes x___ - 1, Episodes Lasting ____ (in Mins/Days/Weeks/Years) - hours - Allergies/Home Medications Allergies/Adverse Reactions: Allergies Allergy/AdvReac Type Severity Reaction Status Date / Time No Known Allergies Allergy Verified 09/17/17 10:53 Home Medications: Home Medications Acetaminophen [Tylenol Extra Strength] 1,000 mg PO DAILY PRN 09/24/17 [History Confirmed 09/24/17] Atorvastatin* [Lipitor*] 20 mg PO DAILY 09/24/17 [History Confirmed 09/24/17] DULoxetine DR LOVE* [Cymbalta CAP*] 20 mg PO DAILY 09/24/17 [History Confirmed ] Estrogens, Conjugated [Premarin] 0.3 mg PO DAILY 09/24/17 [History Confirmed 01/30] Irbesartan 300 mg PO DAILY 09/24/17 [History Confirmed 09/24/17] Levothyroxine TAB* [Synthroid TAB*] 50 mcg PO DAILY 09/24/17 [History Confirmed 09/24/17] Methocarbamol TAB* [Robaxin 500 MG TAB*] 500 mg PO TID 09/24/17 [History Confirmed 09/24/17] amLODIPine TAB* [Norvasc 5 mg TAB*] 10 mg PO DAILY 09/24/17 [History Confirmed 09/24/17] PMH/Surg Hx/FS Hx/Imm Hx Previously Healthy: No Endocrine/Hematology History: Reports: Hx Thyroid Disease - hypothyroid Denies: Hx Anticoagulant Therapy, Hx Diabetes, Hx Systemic Lupus Erythematosus, Hx Anemia Cardiovascular History: Reports: Hx Hypercholesterolemia, Hx Hypertension, Hx Syncope - PSYCHOGENIC SYNCOPE Denies: Hx Congestive Heart Failure, Hx Pacemaker/ICD, Other Cardiovascular Problems/Disorders Respiratory History: Reports: Hx Asthma, Hx Chronic Bronchitis, Hx Chronic Obstructive Pulmonary Disease (COPD), Hx Pneumonia, Other Respiratory Problems/ Disorders GI History: Reports: Hx Gastroesophageal Reflux Disease, Hx Gastrointestinal Bleed, Hx Hiatal Hernia Denies: Hx Ulcer History: Reports: Hx Acute Renal Failure, Hx Renal Disease Denies: Hx Dialysis Musculoskeletal History: Reports: Hx Arthritis, Hx Back Problems - back pain, Other Musculoskeletal History - OSTEOPENIA Denies: Hx Rheumatoid Arthritis, Hx Osteoporosis Sensory History: Reports: Hx Contacts or Glasses - glasses Denies: Hx Hearing Aid Opthamlomology History: Reports: Hx Contacts or Glasses - glasses Neurological History: Reports: 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 Thoracentesis, lung bx. bilat wrist arthroscopies Hx Anesthesia Reactions: No - Immunization History Date of Tetanus Vaccine: n Date of Influenza Vaccine: ukn Infectious Disease History: No Infectious Disease History: Denies: Hx Clostridium Difficile, Hx Hepatitis, Hx Human Immunodeficiency Virus (HIV), Hx of Known/Suspected MRSA, Hx Shingles, Hx Tuberculosis, Hx Known/ Suspected VRE, Hx Known/Suspected VRSA, History Other Infectious Disease, Traveled Outside the [place] in Last 30 Days - Family History Known Family History: Positive: Renal Disease - Social History Lives: With Family Alcohol Use: None Hx Substance Use: No Substance Use Type: Reports: None Hx Tobacco Use: Yes Smoking Status (MU): Former Smoker Type: Cigarettes Amount Used/How Often: smoked 40 years, 1/2 ppd Length of Time of Smoking/Using Tobacco: 40 YRS Have You Smoked in the Last Year: No Review of Systems Constitutional: Negative Negative: Chest Pain Negative: Shortness Of Breath Gastrointestinal: Negative Positive: no symptoms reported Positive: Myalgia - right knee pain Positive: Bruising - left orbit Positive: Syncope. Negative: Headache Positive: Other - decreased mental status All Other Systems Reviewed And Are Negative: Yes Physical Exam - Summary Physical Exam Summary: Appearance: ill-appearing, unable to assess pain distress initially, mild pain distress upon second evaluation, well-nourished Skin: Warm, color reflects adequate perfusion, dry, green and purple ecchymosis to left orbit, sutures to left eyebrow, bruises on bilateral knees Head: Normal Head/Face inspection, atraumatic Eyes: Conjunctiva clear, PERRL, EOMI, no nystagmus ENT: Normal inspection Neck: Supple, no nodes, no JVD, nontender spines Respiratory: Lungs clear, normal breath sounds, no respiratory distress Cardio: RRR, No murmur, pulses normal, brisk capillary refill Abdomen: Soft, nontender Bowel sounds: Present Musculoskeletal: Strength Intact/ROM intact, no calf tenderness, no edema, cast on right forearm Psychological: Normal Neuro: Alert, muscle tone normal, no focal deficit, GCS: 11 initially, roughly 10 minutes later GCS of 15 without intervention Triage Information Reviewed: Yes Vital Signs On Initial Exam: Initial Vitals Temp Pulse Resp BP Pulse Ox 97.2 F 68 16 116/60 94 09/24/17 13:35 09/24/17 13:35 09/24/17 13:35 09/24/17 13:35 09/24/17 13:35 Vital Signs Reviewed: Yes - Charlotte Coma Scale Best Eye Response: 3 - To Speech Best Motor Response: 5 - Purposeful Movement Best Verbal Response: 3 - Inappropriate Words Coma Scale Total: 11 Glascow Coma Scale Comments: Rougly ten minutes after initial exam patient has GCS of 15. Diagnostics - Vital Signs Vital Signs Temp Pulse Resp BP Pulse Ox 09/24/17 13:35 97.2 F 68 16 116/60 94 - Laboratory Result Diagrams: 09/24/17 14:19 09/24/17 14:19 Lab Statement: Any lab studies that have been ordered have been reviewed, and results considered in the medical decision making process. - Radiology CXR Radiology Interpretation Completed By: Radiologist - SMALL BIBASILAR INFILTRATES. ED Physician has reviewed this report. - CT Brain CT CT Interpretation Completed By: Radiologist - 1. NO EVIDENCE FOR ACUTE INTRACRANIAL ABNORMALITY. 2. SMALL LEFT SIDED LACUNAR INFARCT, UNCHANGED. ED Physician has reviewed this report. - EKG 1356 Cardiac Rate: NL - 66 BPM EKG Rhythm: Sinus Rhythm ST Segment: Non-Specific Ectopy: None EKG Interpretation: nml AVIVCT, nml QTc, nml axis, no acute changes EKG Comparison: No Significant Change - compared to 09/17/17 Re-Evaluation - Re-Evaluation First Re-Evaluation Time: 15:20 Change: Improved Comment: Patient is informed of CXR results and WBC. Patient denies chest pain and SOB. Course/Dx Course Of Treatment: 77 year old F BIBA to [facility] after a syncopal event this morning in her kitchen. EMS states the family called emergency services. EMS reports family mentioned that facial ecchymosis and right wrist cast. Patient is initially minimally responsive with a GCS of 11. However, patient was re- evaluated after being informed that she is responsive and alert by patients nurse, Keith, at 13:40 roughly ten minutes after initial evaluation. She states the she often has syncopal episodes and has been told she has orthostatic hypotension. She only complains of right knee pain. Denies headache. GCS is now 15. Brain CT reveals: "1. NO EVIDENCE FOR ACUTE INTRACRANIAL ABNORMALITY. 2. SMALL LEFT SIDED LACUNAR INFARCT, UNCHANGED." A CXR reveals: " SMALL BIBASILAR INFILTRATES." Bloodwork reveals a WBC of 19.2. Patient is given IV fluids, Zofran, and Ceftriaxone and azithromycin for CAP. At 15:25, Dr. Galvan, hospitalist, agrees to admit this patient. - Diagnoses Differential Diagnosis/HQI/PQRI: Positive: Cerebral Vascular Accident, Dysrhythmia, Metabolic Reaction, Medication Reaction, Seizure, Transient Ischemic Attack, Vasovagal Episode Provider Diagnoses: Pneumonia, Syncope - Physician Notifications Discussed Care of Patient With: Sarai Galvan - hospitalist Time Discussed With Above Provider: 15:25 Instructed by Provider To: Admit As Inpatient Discharge - Sign-Out/Discharge Documenting (check all that apply): Patient Departure - admit - Discharge Plan Condition: Stable Disposition: ADMITTED TO [facility] - Billing Disposition and Condition Condition: STABLE Disposition: Admitted to [facility]
[2017-09-24] MEDS: NS 0.9% 1000 ML* 2,000 ML IV ONE ×2 (14:22→16:12)
--- NOTE | 2017-09-24 14:24 | RAD ---
INDICATION: Altered mental status, syncope. COMPARISON: Comparison is made with a prior study from September 17, 2017. TECHNIQUE: Contiguous axial sections of the brain were obtained from the skull base to the vertex without contrast. FINDINGS: The ventricles, cisterns and sulci are enlarged consistent with diffuse atrophy. There are small areas of decreased density in the subcortical and periventricular white matter suggestive of mild chronic small vessel ischemic changes. In addition there is an old lacunar infarct involving the left caudate nucleus head and anterior limb of the internal capsule which is unchanged. No other focal abnormalities or mass effect are seen. There is no evidence for hemorrhage. No significant focal osseous abnormality is seen. The visualized portion of the paranasal sinuses and mastoid air cells appear clear. IMPRESSION: 1. NO EVIDENCE FOR ACUTE INTRACRANIAL ABNORMALITY. 2. SMALL LEFT SIDED LACUNAR INFARCT, UNCHANGED.
[2017-09-24] MEDS ORDERED: Ondansetron INJ* 2 MG/ML VIAL IV ONE (14:28)
[2017-09-24] MEDS ORDERED: Ondansetron INJ* 2 MG/ML VIAL ONE (14:29)
[2017-09-24 14:32] LABS: ABS Basophils 0 10^3/ul (0-0.2); ABS Eosinophils 0.1 10^3/ul (0-0.6); ABS Lymphocytes 0.4 10^3/ul (1.0-4.8); ABS Monocytes 0.3 10^3/ul (0-0.8); ABS Neutrophils 18.4 10^3/ul (1.5-7.7); ABS Nucleated RBC 0 10^3/ul; Eosinophil % 0.6 % (0-6); Hematocrit 39 % (35-47); Hemoglobin 12.8 g/dl (12.0-16.0); Lymphocyte % 2.1 % (25-47); Mean Corpuscular HGB Conc 33 g/dl (31-36); Mean Corpuscular Hemoglobin 29 pg (27-31); Mean Corpuscular Volume 90 fL (80-97); Mean Platelet Volume 7.6 um3 (7.4-10.4); Nucleated Red Blood Cells % 0.1; Platelet Count 358 10^3/ul (150-450); Red Blood Count 4.36 10^6/ul (4.00-5.40); Red Cell Distribution Width 15 % (10.5-15); White Blood Count 19.2 10^3/ul (3.5-10.8)
[2017-09-24 14:38] LABS: INR 0.86 (0.77-1.02)
[2017-09-24 14:53] LABS: EGFR Non-African American 32.7 (>60)
--- NOTE | 2017-09-24 15:10 | RAD ---
INDICATION: Altered mental status, syncope. COMPARISON: Comparison is made with a prior study from June 28, 2016. TECHNIQUE: A portable view of the chest was obtained. FINDINGS: The heart appears mildly enlarged and unchanged. There is mild prominence of the interstitial markings and small infiltrates at both lung bases right greater than left. No pleural effusion is seen. IMPRESSION: SMALL BIBASILAR INFILTRATES.
[2017-09-24] MEDS ORDERED: Azithromycin IV(*) 500 MG in NS 0.9% 250 ML* 250 ML IVPB ONE (15:28)
[2017-09-24] MEDS ORDERED: NS 0.9% 250 ML* 250 ML IV ONE (15:28)
[2017-09-24] MEDS ORDERED: cefTRIAXone(*) 1 GM in NS 0.9% 50 ML* 50 ML IVPB ONE (15:29)
[2017-09-24] MEDS ORDERED: Acetaminophen TAB* 325 MG PO PRN (16:18)
[2017-09-24] MEDS ORDERED: PROCHLORPERAZINE INJ 5 MG/ML 2 ML VIAL IV PRN (16:19)
[2017-09-24] MEDS ORDERED: NS 0.9% 1000 ML* 1,000 ML IV SCH (16:30)
[2017-09-24] MEDS ORDERED: Methocarbamol TAB* 500 MG PO PRN (16:40)
[2017-09-24] MEDS ORDERED: Spiriva Inhaler DEVICE* 1 EACH DEVICE INH ONE (17:00)
[2017-09-24] MEDS: Omeprazole CAP* 20 MG PO SCH (17:51)
[2017-09-24 18:44] LABS: Urine Appearance Cloudy; Urine Blood Negative (Negative); Urine Color Yellow; Urine Ketones Negative (Negative); Urine Protein Negative (Negative); Urine Red Blood Cell Trace(0-2/hpf) (Absent); Urine Specific Gravity 1.011 (1.010-1.030); Urine Urobilinogen Negative (Negative); Urine White Blood Cell Trace(0-5/hpf) (Absent)
[2017-09-24] MEDS ORDERED: Ondansetron ODT TAB* 4 MG SL PRN (19:35)
--- NOTE | 2017-09-24 19:39 | HP ---
CC: Dr. Small* [facility] HISTORY AND PHYSICAL: DATE OF ADMISSION: 09/24/17 PRIMARY CARE PHYSICIAN: Dr. Small. ATTENDING PHYSICIAN: Sarai Rodriguez MD* (dictation provided by Yue Perry NP) . CHIEF COMPLAINT: Syncopal episode. HISTORY OF PRESENT ILLNESS: Ms. Zepeda is a 77-year-old female with a past medical history of orthostatic hypotension resulting in multiple falls as well as chronic obstructive pulmonary disease, on home O2 p.r.n.; hypertension and chronic back pain who presents today to the hospital with concern for a syncopal episode. Ms. Zepeda states that she has been in her normal state of health recently. She has been very depressed since June when her son of suicide. She has had very poor appetite in the past couple of days, but she had denied any nausea or vomiting. She has had no abdominal pain. She has had no diarrhea. She has had no fever nor any cough. Today, while she was making food for family, she was noted to suddenly pass out. The patient states that this is not unusual for her given her history of orthostatic hypotension. When the patient awoke, she was confused and EMS was called to bring her to the emergency room. In the emergency room, Ms. Zepeda had labs which showed a leukocytosis with a white blood cell count of 19.2. She showed a mild acute kidney injury with a BUN of 33 and a creatinine of 1.54. Her chest x-ray showed concern for bilateral basilar infiltrates. CT brain was negative for any acute change. The patient was 90% on room air and is now 100% on 3 L nasal cannula. The patient states she wears 3 L nasal cannula only p.r.n. at home and often at night. Of note, while in the emergency room, the patient vomited x1. She states that she has had no vomiting at home, although she has had a poor appetite. She denies abdominal pain. She denies diarrhea. She was also very lightheaded on standing in the ED, which could be due to her orthostatic hypotension or possibly due to this newly discovered acute pneumonia. PAST MEDICAL HISTORY: 1. COPD, on intermittent O2 at home. 2. Orthostatic hypotension with multiple episodes of syncope. 3. Hiatal hernia. 4. Hypertension. 5. Peripheral neuropathy. 6. Chronic back pain. 7. Hyperlipidemia. 8. Status post hysterectomy. 9. History of previous multiple admissions for aspiration pneumonitis, none in the past couple of years, currently on a regular consistency thin liquid diet. MEDICATIONS: 1. Duloxetine DR 20 mg p.o. daily. 2. Amlodipine 10 mg p.o. daily. 3. Metoprolol succinate 50 mg p.o. daily. 4. Levothyroxine 50 mcg p.o. daily. 5. Irbesartan 300 mg p.o. daily. 6. Gabapentin 600 mg in the a.m. and 900 mg at bedtime. 7. Methocarbamol 500 mg p.o. t.i.d. p.r.n. 8. Atorvastatin 20 mg p.o. daily. 9. Tylenol 1000 mg p.o. daily p.r.n. 10. Conjugated estrogen 0.3 mg p.o. daily. 11. Symbicort 160/4.5 two puffs inhaled b.i.d. 12. Alprazolam 0.25 mg p.o. q.8 hours p.r.n. 13. Omeprazole 20 mg p.o. b.i.d. 14. Tiotropium 1 cap inhaled daily. 15. Temazepam 15 to 30 mg p.o. at bedtime p.r.n. insomnia. 16. Oxycodone 5 mg p.o. q.4 hours p.r.n. ALLERGIES: No known drug allergies. FAMILY HISTORY: The patient reports her father of an NC in his 50s. Mother had heart disease and in her 70s. SOCIAL HISTORY: The patient is a former smoker, she quit in 2003. She denies any alcohol or drug use. She lives with her who is her healthcare proxy. REVIEW OF SYSTEMS: A 14-point review of systems was completed with Ms. Zepeda and all those not mentioned above were negative. PHYSICAL EXAMINATION GENERAL: Ms. Zepeda is lying in the bed. She is very teary throughout my examination, which she attributes to the loss of her son in June as well as some other difficulties in her family. She is in no acute distress. VITAL SIGNS: Temperature 97.1, pulse rate 85, respiratory rate 16, O2 saturation 100% on 3 L nasal cannula, blood pressure 143/74. LUNGS: Clear to auscultation bilaterally with no accessory muscle use and good aeration. HEART: S1, S2. No murmur, rub or gallop and regular. ABDOMEN: Soft, nontender with bowel sounds positive x4. EXTREMITIES: No cyanosis. No edema. NEURO: She is alert. She is oriented x3. She moves all extremities equally. There is no facial asymmetry or focal weakness. Extraocular movements are intact. SKIN: Intact. DIAGNOSTIC STUDIES/LAB DATA: WBC 19.2, hemoglobin 12.8, hematocrit 39, platelet count 358,000. INR 0.86. Sodium 141, potassium 3.7, chloride 109, serum bicarbonate 25, BUN 33, creatinine 1.54, glucose 102, lactic acid 1.3. TSH 3.40. Salicylate, acetaminophen and serum alcohol level were all negative. The brain CT is read as follows: "No evidence for acute intracranial abnormality. Small left-sided lacunar infarct is unchanged in comparison to multiple previous CTs." Chest x-ray shows bilateral bibasilar infiltrates. An EKG shows a sinus rhythm with a heart rate of 60 and no evidence of ischemia. ASSESSMENT AND PLAN: Ms. Zepeda is a 77-year-old female with a past medical history of chronic obstructive pulmonary disease, on intermittent home O2 as well as orthostatic hypotension with multiple episodes of syncope and falls, who presents today to the hospital with concern for a syncopal episode at home, now found to have concern for pneumonia. Our plans are for observation in the hospital as I expect her length of stay to be 24 hours or less at this point. Our plan is as follows: 1. Pneumonia. The patient has bibasilar infiltrates noted on chest x-ray and a new leukocytosis as well as O2 requirement at rest that is new for her. Plan is for treatment with ceftriaxone and azithromycin. Blood cultures are being drawn now. Lactic acid is normal. She does not meet criteria for sepsis, but she has received 2 L of IV fluids in the emergency room. She does not have a cough at this point. Titrate oxygen as clinically indicated. 2. Syncope. The patient's presentation was precipitated by a syncopal episode at home; however, she has a longstanding history of orthostatic hypotension and known syncope. She states that there was nothing unusual about this episode for her. I will monitor her on the telemetry unit. We do not plan to work this up further given its longstanding chronicity. 3. Depression. Continue her alprazolam and duloxetine. She may benefit from titration of these medications up due to her ongoing depression and grief related to of her son. 4. Chronic obstructive pulmonary disease. No evidence of acute exacerbation. The patient has no wheezing on examination. Plan to continue her Spiriva. 5. Chronic pain. Continue oxycodone p.r.n. 6. Gastroesophageal reflux disease. Continue omeprazole. 7. Hypothyroidism. Continue levothyroxine. 8. Hypertension. Continue metoprolol and irbesartan and amlodipine. Her blood pressure is running 143/74 now. 9. Vomiting x1. The patient vomited x1 in the ED, but has no previous report of vomiting prior to her admission. She will have Compazine available p.r.n. for nausea and we will administer her antibiotics intravenously until she has been demonstrated to tolerate oral intake well. Any further workup for this will be based on persistent clinical course. 10. DVT prophylaxis with heparin subcu. 11. Code status is DNR. 12. Disposition will be telemetry floor. TIME SPENT: Approximately 60 minutes were spent on the admission of this patient, more than half time was spent with the patient at the bedside reviewing the events leading up to this hospitalization, performing the physical examination, and reviewing the plan of care. YUE PERRY NP [id number]/[facility] #: [id number] NINA
[2017-09-24] MEDS: oxyCODONE TAB* 5 MG TAB PO PRN (20:25)
[2017-09-24] MEDS: Gabapentin CAP(*) 300 MG PO SCH (20:25)
[2017-09-24] MEDS: ALPRAZolam TAB* 0.25 MG PO PRN (20:26)
[2017-09-24] MEDS: Heparin VIAL(*) 5000 UNITS/ML VIAL (FIVE THOUSAND) SUBCUT SCH (20:32)
[2017-09-24] MEDS: Temazepam CAP* 15 MG PO PRN (22:06)
[2017-09-25] MEDS ORDERED: Temazepam CAP* 15 MG PO ONE (01:36)
[2017-09-25] MEDS: Heparin VIAL(*) 5000 UNITS/ML VIAL (FIVE THOUSAND) SUBCUT SCH ×3 (05:27→17:42)
[2017-09-25] MEDS: Levothyroxine TAB* 50 MCG TAB PO SCH (05:27)
[2017-09-25 05:42] LABS: ABS Basophils 0 10^3/ul (0-0.2); ABS Eosinophils 0.4 10^3/ul (0-0.6); ABS Lymphocytes 0.5 10^3/ul (1.0-4.8); ABS Monocytes 0.6 10^3/ul (0-0.8); ABS Nucleated RBC 0 10^3/ul; Eosinophil % 3.9 % (0-6); Hematocrit 33 % (35-47); Hemoglobin 10.9 g/dl (12.0-16.0); Lymphocyte % 5.7 % (25-47); Mean Corpuscular HGB Conc 33 g/dl (31-36); Mean Corpuscular Hemoglobin 30 pg (27-31); Mean Corpuscular Volume 89 fL (80-97); Mean Platelet Volume 7.4 um3 (7.4-10.4); Nucleated Red Blood Cells % 0.1; Platelet Count 282 10^3/ul (150-450); Red Blood Count 3.69 10^6/ul (4.00-5.40); Red Cell Distribution Width 15 % (10.5-15); White Blood Count 9.6 10^3/ul (3.5-10.8)
[2017-09-25 05:55] LABS: EGFR Non-African American 51.4 (>60)
[2017-09-25] MEDS: Tiotropium CAP.INH* CAP.INH/18 MCG (USE ORDER SET !) INH SCH (07:30)
[2017-09-25] MEDS: Omeprazole CAP* 20 MG PO SCH ×2 (09:43→16:15)
[2017-09-25] MEDS: Metoprolol Succinate XL TAB* 50 MG PO SCH (09:45)
[2017-09-25] MEDS: Atorvastatin* 20 MG TAB PO SCH (09:45)
[2017-09-25] MEDS: Gabapentin CAP(*) 300 MG PO SCH ×2 (09:46→20:52)
[2017-09-25] MEDS: DULoxetine DR CAP* 20 MG CAP.DR PO SCH (09:47)
[2017-09-25] MEDS: amLODIPine TAB* 5 MG PO SCH (09:48)
[2017-09-25] MEDS: Losartan TAB* 25 MG PO SCH (09:48)
[2017-09-25] MEDS: Conjugated Estrogens TAB* 0.3 MG TAB PO SCH (09:50)
[2017-09-25] MEDS ORDERED: Calcium Gluconate INJ* 2 GM in NS 0.9% 100 ML* 100 ML IVPB ONE (10:00)
[2017-09-25] MEDS ORDERED: NS 0.9% 500 ML* 500 ML IV ONE (12:19)
[2017-09-25] MEDS ORDERED: NS 0.9% 1000 ML* 1,000 ML IV SCH (12:30)
[2017-09-25] MEDS: oxyCODONE TAB* 5 MG TAB PO PRN ×2 (13:25→18:21)
[2017-09-25] MEDS ORDERED: cefTRIAXone VIAL(*) 1,000 MG VIAL IVPB SCH (15:00)
[2017-09-25] MEDS ORDERED: cefTRIAXone* 1 GM in NS 0.9% 50 ML BAG IVPB SCH (15:30)
[2017-09-25] MEDS ORDERED: Azithromycin IV(*) 250 MG in NS 0.9% 250 ML* 250 ML IVPB SCH (16:00)
--- NOTE | 2017-09-25 17:06 | PN ---
Subjective Date of Service: 09/25/17 Interval History: Pt seen and examined. Meds and labs reviewed. Pt syncopized briefly while performing orthostatics and has been a chronic history of hersespecially more sensitive now given PNA. CC: Orthostatic syncope ROS: Denied BHARDWAJ/dizziness, F/C, N/V, CP, SOB, increased cough, sputum production , abd pain, diarrhea, constipation, dysuria, myalgias, arthralgias, throat pain , and new skin lesions. The rest of the 14 point ROS are unremarkable. PHYSICAL EXAM: GEN APPEARANCE: Awake, not in acute distress HEENT: NC/AT, PERRLA, moist oral mucosa, (-) throat erythema NECK: Soft, supple, (-) cervical LAD, (-)JVD HEART: S1S2 WNL, RRR, No MRG CHEST: CTA, BL, GAE, No W/R/R ABD: Soft, ND/NT, NABS 4x Q EXT: No C/C/E SKIN: Warm to touch PSYCH: No active psychosis, hallucinations, depression, SI/HI Objective Active Medications: Acetaminophen (Tylenol Tab*) 650 mg PO Q6H PRN PRN Reason: PAIN Alprazolam (Xanax Tab*) 0.25 mg PO Q8HR PRN PRN Reason: ANXIETY Last Admin: 09/24/17 20:26 Dose: 0.25 mg Amlodipine Besylate (Norvasc Tab*) 10 mg PO DAILY [facility] Last Admin: 09/25/17 09:48 Dose: 10 mg Atorvastatin Calcium (Lipitor*) 20 mg PO DAILY [facility] Last Admin: 09/25/17 09:45 Dose: 20 mg Duloxetine HCl (Cymbalta Cap*) 20 mg PO DAILY [facility] Last Admin: 09/25/17 09:47 Dose: 20 mg Estrogens Conjugated (Premarin Tab*) 0.3 mg PO DAILY [facility] Last Admin: 09/25/17 09:50 Dose: 0.3 mg Gabapentin (Neurontin Cap(*)) 600 mg PO QAM [facility] Last Admin: 09/25/17 09:46 Dose: 600 mg Gabapentin (Neurontin Cap(*)) 900 mg PO BEDTIME [facility] Last Admin: 09/24/17 20:25 Dose: 900 mg Heparin Sodium (Porcine) (Heparin Vial(*)) 5,000 units SUBCUT Q12H [facility] Azithromycin 250 mg/ Sodium (Chloride) 250 mls @ 250 mls/hr IVPB Q24H [facility] Last Admin: 09/25/17 16:15 Dose: 250 mls/hr Ceftriaxone Sodium 1 gm/ (Sodium Chloride) 50 mls @ 200 mls/hr IVPB Q24H [facility] Last Admin: 09/25/17 15:40 Dose: 200 mls/hr Sodium Chloride (Ns 0.9% 1000 Ml*) 1,000 mls @ 75 mls/hr IV PER RATE [facility] Stop: 09/26/17 01:49 Last Admin: 09/25/17 14:00 Dose: 75 mls/hr Levothyroxine Sodium (Synthroid Tab*) 50 mcg PO DAILY@0600 [facility] Last Admin: 09/25/17 05:27 Dose: 50 mcg Losartan Potassium (Cozaar Tab*) 100 mg PO DAILY [facility] Last Admin: 09/25/17 09:48 Dose: 100 mg Methocarbamol (Robaxin Tab*) 500 mg PO TID PRN PRN Reason: Muscle spasms Metoprolol Succinate (Toprol Xl Tab*) 50 mg PO DAILY [facility] Last Admin: 09/25/17 09:45 Dose: 50 mg Omeprazole (Prilosec Cap*) 20 mg PO BID@0730,1630 [facility] Last Admin: 09/25/17 16:15 Dose: 20 mg Ondansetron HCl (Zofran Odt Tab*) 8 mg SL Q6H PRN PRN Reason: NAUSEA/VOMITING Oxycodone HCl (Roxycodone Tab*) 5 mg PO Q4H PRN PRN Reason: PAIN Last Admin: 09/25/17 13:25 Dose: 5 mg Prochlorperazine Edisylate (Compazine Inj*) 5 mg IV Q6H PRN PRN Reason: NAUSEA/VOMITING Temazepam (Restoril Cap*) 15 mg PO BEDTIME PRN PRN Reason: SLEEP Last Admin: 09/24/17 22:06 Dose: 15 mg Tiotropium [place] (Spiriva Cap.Inh*) 1 cap INH DAILY [facility] Last Admin: 09/25/17 07:30 Dose: 1 cap Vital Signs - 8 hr 09/25/17 09/25/17 09/25/17 09:46 11:29 11:44 Temperature 97.7 F Pulse Rate 69 66 Respiratory 16 16 Rate Blood Pressure 141/48 134/46 (mmHg) O2 Sat by Pulse 98 99 Oximetry 09/25/17 09/25/17 09/25/17 12:05 13:25 15:15 Temperature 97.6 F Pulse Rate 66 Respiratory 16 16 16 Rate Blood Pressure 153/60 (mmHg) O2 Sat by Pulse 98 Oximetry 09/25/17 09/25/17 15:30 15:52 Temperature Pulse Rate 66 Respiratory 16 Rate Blood Pressure 145/50 (mmHg) O2 Sat by Pulse Oximetry Oxygen Devices in Use Now: Nasal Cannula Result Diagrams: 09/25/17 05:20 09/25/17 05:20 Microbiology and Other Data: Microbiology 09/24/17 16:24 Aerobic Blood Culture - Preliminary Blood Venous No Growth Day 1 Anaerobic Blood Culture - Preliminary No Growth Day 1 09/24/17 16:25 Aerobic Blood Culture - Preliminary Blood Venous No Growth Day 1 Anaerobic Blood Culture - Preliminary No Growth Day 1 09/24/17 18:25 Legionella Urinary Antigen - Final Urine Negative Legionella Antigen Streptococcus pneumoniae Ag Screen - Final Negative S. pneumo Antigen Assess/Plan/Problems-Billing Assessment: - Patient Problems (1) Orthostatic syncope Current Visit: Yes Status: Acute Code(s): I95.1 - ORTHOSTATIC HYPOTENSION SNOMED Code(s): 471869152 Comment: -Pt has long-standing well-documented propensity for orthostasis and certainly could be worsened with current diagnosis of PNA -Although Lactic acid found normal, serum procalcitonin mildly elevated -Bolused with 500 cc NS and placed on maintenance fluids -Will continue watchful waiting -For KIMMIE stockings (2) Pneumonia Current Visit: Yes Status: Acute Code(s): J18.9 - PNEUMONIA, UNSPECIFIED ORGANISM SNOMED Code(s): 519739221 Comment: -Continue Rocephin and Azithromycin -(-)Legionella and S. pneuomoniae urine Ag -Blood Culture (-) x1 day (3) Depression Current Visit: Yes Status: Acute Code(s): F32.9 - MAJOR DEPRESSIVE DISORDER , SINGLE EPISODE, UNSPECIFIED SNOMED Code(s): 36083354 Comment: -Continue Duloxetine -Denies SI/HI (4) GERD (gastroesophageal reflux disease) Current Visit: No Status: Chronic Priority: Medium Code(s): K21.9 - GASTRO -ESOPHAGEAL REFLUX DISEASE WITHOUT ESOPHAGITIS SNOMED Code(s): 574402707 Comment: -Continue Omeprazole (5) DVT prophylaxis Current Visit: No Status: Acute Code(s): TBT9806 - SNOMED Code(s): 307182428 Comment: -Will decrease Heparin SQ to q12H given advanced age and propensity for falls given orthostatic syncope Status and Disposition: -For PT eval
[2017-09-25] MEDS: ALPRAZolam TAB* 0.25 MG PO PRN (23:52)
[2017-09-25] MEDS: Temazepam CAP* 15 MG PO PRN (23:52)
[2017-09-26] MEDS: Omeprazole CAP* 20 MG PO SCH ×2 (06:07→16:05)
[2017-09-26] MEDS: Levothyroxine TAB* 50 MCG TAB PO SCH (06:07)
[2017-09-26] MEDS: Heparin VIAL(*) 5000 UNITS/ML VIAL (FIVE THOUSAND) SUBCUT SCH ×2 (06:07→16:06)
[2017-09-26 06:19] LABS: ABS Basophils 0.1 10^3/ul (0-0.2); ABS Eosinophils 0.7 10^3/ul (0-0.6); ABS Lymphocytes 1.4 10^3/ul (1.0-4.8); ABS Monocytes 0.7 10^3/ul (0-0.8); ABS Neutrophils 2.3 10^3/ul (1.5-7.7); ABS Nucleated RBC 0 10^3/ul; Hematocrit 32 % (35-47); Hemoglobin 10.9 g/dl (12.0-16.0); Lymphocyte % 27.7 % (25-47); Mean Corpuscular HGB Conc 34 g/dl (31-36); Mean Corpuscular Hemoglobin 30 pg (27-31); Mean Corpuscular Volume 89 fL (80-97); Nucleated Red Blood Cells % 0.1; Platelet Count 282 10^3/ul (150-450); Red Blood Count 3.64 10^6/ul (4.00-5.40); Red Cell Distribution Width 15 % (10.5-15); White Blood Count 5.2 10^3/ul (3.5-10.8)
[2017-09-26 06:21] LABS: EGFR Non-African American 65.7 (>60)
[2017-09-26] MEDS: Tiotropium CAP.INH* CAP.INH/18 MCG (USE ORDER SET !) INH SCH (08:23)
[2017-09-26] MEDS: Conjugated Estrogens TAB* 0.3 MG TAB PO SCH (09:05)
[2017-09-26] MEDS: Metoprolol Succinate XL TAB* 50 MG PO SCH (09:06)
[2017-09-26] MEDS: DULoxetine DR CAP* 20 MG CAP.DR PO SCH (09:06)
[2017-09-26] MEDS: amLODIPine TAB* 5 MG PO SCH (09:07)
[2017-09-26] MEDS: Atorvastatin* 20 MG TAB PO SCH (09:07)
[2017-09-26] MEDS: Gabapentin CAP(*) 300 MG PO SCH ×2 (09:08→21:25)
[2017-09-26] MEDS: Losartan TAB* 25 MG PO SCH (09:10)
--- NOTE | 2017-09-26 13:38 | PN ---
Subjective Date of Service: 09/26/17 Interval History: SOB at her baseline, no cough, no chest pain. Patient states she was told she needs assist of 2 to walk today. Objective Active Medications: Acetaminophen (Tylenol Tab*) 650 mg PO Q6H PRN PRN Reason: PAIN Last Admin: 09/26/17 09:15 Dose: 650 mg Alprazolam (Xanax Tab*) 0.25 mg PO Q8HR PRN PRN Reason: ANXIETY Last Admin: 09/25/17 23:52 Dose: 0.25 mg Atorvastatin Calcium (Lipitor*) 20 mg PO DAILY [facility] Last Admin: 09/26/17 09:07 Dose: 20 mg Azithromycin (Zithromax Tab*) 250 mg PO DAILY [facility] Cefuroxime Axetil (Ceftin Tab 500 Mg(*)) 500 mg PO BID [facility] Duloxetine HCl (Cymbalta Cap*) 20 mg PO DAILY [facility] Last Admin: 09/26/17 09:06 Dose: 20 mg Estrogens Conjugated (Premarin Tab*) 0.3 mg PO DAILY [facility] Last Admin: 09/26/17 09:05 Dose: 0.3 mg Gabapentin (Neurontin Cap(*)) 600 mg PO QAM [facility] Last Admin: 09/26/17 09:08 Dose: 600 mg Gabapentin (Neurontin Cap(*)) 900 mg PO BEDTIME [facility] Last Admin: 09/25/17 20:52 Dose: 900 mg Heparin Sodium (Porcine) (Heparin Vial(*)) 5,000 units SUBCUT Q12H [facility] Last Admin: 09/26/17 06:07 Dose: 5,000 units Levothyroxine Sodium (Synthroid Tab*) 50 mcg PO DAILY@0600 [facility] Last Admin: 09/26/17 06:07 Dose: 50 mcg Losartan Potassium (Cozaar Tab*) 100 mg PO DAILY [facility] Last Admin: 09/26/17 09:10 Dose: 100 mg Methocarbamol (Robaxin Tab*) 500 mg PO TID PRN PRN Reason: Muscle spasms Metoprolol Succinate (Toprol Xl Tab*) 50 mg PO DAILY [facility] Last Admin: 09/26/17 09:06 Dose: 50 mg Omeprazole (Prilosec Cap*) 20 mg PO BID@0730,1630 [facility] Last Admin: 09/26/17 06:07 Dose: 20 mg Ondansetron HCl (Zofran Odt Tab*) 8 mg SL Q6H PRN PRN Reason: NAUSEA/VOMITING Oxycodone HCl (Roxycodone Tab*) 5 mg PO Q4H PRN PRN Reason: PAIN Last Admin: 09/25/17 18:21 Dose: 5 mg Prochlorperazine Edisylate (Compazine Inj*) 5 mg IV Q6H PRN PRN Reason: NAUSEA/VOMITING Temazepam (Restoril Cap*) 15 mg PO BEDTIME PRN PRN Reason: SLEEP Last Admin: 09/25/17 23:52 Dose: 15 mg Tiotropium [place] (Spiriva Cap.Inh*) 1 cap INH DAILY [facility] Last Admin: 09/26/17 08:23 Dose: 1 cap Vital Signs - 8 hr 09/26/17 09/26/17 09/26/17 07:40 08:24 09:08 Temperature 98.0 F Pulse Rate 64 68 Respiratory 18 18 16 Rate Blood Pressure 142/54 (mmHg) O2 Sat by Pulse 97 98 Oximetry 09/26/17 11:17 Temperature 98.1 F Pulse Rate 58 Respiratory 18 Rate Blood Pressure 117/70 (mmHg) O2 Sat by Pulse 98 Oximetry Oxygen Devices in Use Now: None Appearance: Alert, sitting up in bed. In good spirits. Looks comfortable. Eyes: No Scleral Icterus Respiratory: Symmetrical Chest Expansion and Respiratory Effort, Clear to Auscultation, Clear to Percussion Cardiovascular: NL Sounds; No Murmurs; No JVD, RRR, No Edema, - Extremities: No Edema, No Clubbing, Cyanosis, - Skin: No Rash or Ulcers, No Nodules or Sclerosis, - Neurological: Alert and Oriented x 3, NL Sensation Result Diagrams: 09/26/17 05:25 09/26/17 05:25 Microbiology and Other Data: Microbiology 09/24/17 16:24 Aerobic Blood Culture - Preliminary Blood Venous No Growth Day 1 Anaerobic Blood Culture - Preliminary No Growth Day 1 09/24/17 16:25 Aerobic Blood Culture - Preliminary Blood Venous No Growth Day 1 Anaerobic Blood Culture - Preliminary No Growth Day 1 09/24/17 18:25 Legionella Urinary Antigen - Final Urine Negative Legionella Antigen Streptococcus pneumoniae Ag Screen - Final Negative S. pneumo Antigen Assess/Plan/Problems-Billing Assessment: - Patient Problems (1) Pneumonia Current Visit: Yes Status: Acute Code(s): J18.9 - PNEUMONIA, UNSPECIFIED ORGANISM SNOMED Code(s): 081557647 Comment: -Change to oral ceftriaxone and azithromycin -(-)Legionella and S. pneuomoniae urine Ag -Blood Culture (-) x1 day (2) Urinary retention Current Visit: Yes Status: Acute Code(s): R33.9 - RETENTION OF URINE, UNSPECIFIED SNOMED Code(s): 299810652 Comment: PVR by bladder scan about 225 ml, pt voiding about 25 ml every hour. I discussed management with Dr. Campo. One approach is to give tamsulosin and reduce BP meds further. The patient would prefer to discuss this with Dr. Small. (3) Syncope Current Visit: Yes Status: Acute Code(s): R55 - SYNCOPE AND COLLAPSE SNOMED Code(s): 303142487 Comment: Fracture R wrist 09/17/17, fx L wrist 1 yr ago. Both episodes were sudden episodes of LOC without warning. She does not recall being dizzy or falling. A loop recorder would seem appropriate--I discussed this with her. (4) GERD (gastroesophageal reflux disease) Current Visit: No Status: Chronic Priority: Medium Code(s): K21.9 - GASTRO -ESOPHAGEAL REFLUX DISEASE WITHOUT ESOPHAGITIS SNOMED Code(s): 214526696 Comment: -Continue Omeprazole (5) Hypertension Current Visit: No Status: Chronic Priority: Medium Code(s): I10 - ESSENTIAL (PRIMARY) HYPERTENSION SNOMED Code(s): 89518987 Comment: BP well controlled. Continue valsartan, metoprolol. Reduce amlodpine to 5 mg daily start 09/27 due to syncope. Status and Disposition: -For PT eval
[2017-09-26] MEDS: Azithromycin TAB* 250 MG PO SCH (14:04)
[2017-09-26] MEDS: ceFUROXime TAB(*) 250 MG PO SCH ×2 (14:04→21:25)
[2017-09-26] MEDS: oxyCODONE TAB* 5 MG TAB PO PRN (16:04)
[2017-09-26] MEDS: ALPRAZolam TAB* 0.25 MG PO PRN ×2 (16:05→23:10)
[2017-09-26] MEDS: Temazepam CAP* 15 MG PO PRN (23:10)
[2017-09-27] MEDS: Omeprazole CAP* 20 MG PO SCH (06:12)
[2017-09-27] MEDS: Levothyroxine TAB* 50 MCG TAB PO SCH (06:12)
[2017-09-27] MEDS: Heparin VIAL(*) 5000 UNITS/ML VIAL (FIVE THOUSAND) SUBCUT SCH (06:14)
[2017-09-27] MEDS ORDERED: amLODIPine TAB* 5 MG PO SCH (09:00)
[2017-09-27] MEDS: Metoprolol Succinate XL TAB* 50 MG PO SCH (09:04)
[2017-09-27] MEDS: Azithromycin TAB* 250 MG PO SCH (09:04)
[2017-09-27] MEDS: Gabapentin CAP(*) 300 MG PO SCH (09:05)
[2017-09-27] MEDS: Atorvastatin* 20 MG TAB PO SCH (09:07)
[2017-09-27] MEDS: Losartan TAB* 25 MG PO SCH (09:07)
[2017-09-27] MEDS: ceFUROXime TAB(*) 250 MG PO SCH (09:08)
[2017-09-27] MEDS: Conjugated Estrogens TAB* 0.3 MG TAB PO SCH (09:12)
[2017-09-27] MEDS: DULoxetine DR CAP* 20 MG CAP.DR PO SCH (09:12)
[2017-09-27] MEDS: Tiotropium CAP.INH* CAP.INH/18 MCG (USE ORDER SET !) INH SCH (09:29)
[2017-09-27 12:56] VITALS: BP 140/56
--- NOTE | 2017-09-27 22:56 | DS ---
CC: Dr. Small; Dr. Campo from Urology* DISCHARGE SUMMARY: DATE OF ADMISSION: 09/24/17 DATE OF DISCHARGE: 09/27/17 PRIMARY CARE PROVIDER: Dr. Small. DISCHARGE DIAGNOSES: 1. Orthostatic syncope due to orthostatic hypotension. 2. Bibasilar bacterial pneumonia. SECONDARY DIAGNOSES: 1. History of chronic obstructive pulmonary disease, on intermittent oxygen at home. 2. History of orthostatic hypotension with multiple episodes of syncope in the past. The most recent one resulted in right wrist fracture 10 days ago. 3. History of hiatal hernia. 4. Hypertension. 5. Peripheral neuropathy. 6. Chronic back pain. 7. Hyperlipidemia. 8. History of hysterectomy. 9. History of aspiration pneumonitis in the past. MEDICATIONS AT DISCHARGE: Include: 1. Azithromycin 250 mg p.o. daily for a total of 2 days. 2. Cefuroxime 500 mg p.o. b.i.d. for a total of 4 days. The patient's Norvasc was discontinued. The remaining medications are unchanged and include: 1. Acetaminophen 1000 mg daily p.r.n. 2. Xanax 0.25 mg every 8 hours p.r.n. 3. Lipitor 20 mg daily. 4. Symbicort 160/4.5 two inhalations b.i.d. 5. Cymbalta 20 mg daily. 6. Premarin 0.3 mg daily. 7. Neurontin 600 mg in the a.m. and 900 mg at bedtime. 8. Irbesartan 300 mg daily. 9. Synthroid 50 mcg daily. 10. Robaxin 500 mg 3 times a day. 11. Metoprolol succinate 50 mg daily. 12. Omeprazole 20 mg b.i.d. 13. Restoril 15 to 30 mg p.o. at h.s. p.r.n. insomnia. 14. Oxycodone on a p.r.n. basis. 15. Spiriva 1 inhalation daily. LABORATORY DATA AND STUDIES PERFORMED DURING HOSPITAL STAY: Included: On 09/26/17, sodium of 142, potassium 4.1, chloride 114, carbon dioxide 24, BUN 14, creatinine 0.84. Liver function tests were unremarkable. Procalcitonin was 1 on 09/24/17. The patient's TSH was noted to be 3.4 at admission. On 09/26/17, white blood cell count of 5.2, hemoglobin of 10.9, hematocrit of 32 , and platelets of 282. Portable chest x-ray obtained on admission, impression: "Small bibasilar infiltrates." CTA of the brain obtained on the same day, impression: "No evidence of acute intracranial abnormality. Small left-sided lacunar infarct that is unchanged." Microbiology tests shows urine culture obtained on admission, which showed a few Enterobacteriaceae, possible contamination." Urine Legionella antigen and Strep pneumo antigens were negative. Blood cultures obtained on admission are negative to date of discharge. At discharge, the patient is going to follow up with Dr. Small with a scheduled appointment tomorrow on 09/28/17. The patient also recommended to follow up with Dr. Campo with a scheduled appointment on 10/13/17. HOSPITALIZATION COURSE: Tanya Zepeda is a 77-year-old female who presented to the hospital after a syncopal episode. She was noted to have bibasilar infiltrate on her x-ray and elevated procalcitonin level. Having said that, she did not have clear-cut symptoms of pneumonia, but she has had problems with poor appetite and generalized weakness. The patient has history of orthostatic syncope. In fact, on 09/17/17, she had orthostatic syncope when she fractured her right wrist. The patient was admitted to the hospital on 09/24/17 on telemetry monitored bed. She still had intermittent orthostasis, but after intravenous hydration, by the time of discharge she was not orthostatic anymore. She did have problems with overflow incontinence that was noted on 09/25/17 that somewhat resolved spontaneously. The patient still retains urine approximately [address] Small briefly discussed the case with Dr. Campo who is the patient's urologist. The patient will follow up with Dr. Campo from Urology on 10/13/17 with an appointment. By the time of discharge, the patient's orthostatic blood pressures were unremarkable. She did not have any orthostatic symptoms. Nevertheless, I educated the patient about getting up slowly from bed, standing for a while before starting to walk. I discontinued the patient's Norvasc and advised the patient that it is likely safer for the patient to have her systolic blood pressure in the 150s range than for her to have orthostatic syncope all the time. I did also discuss with the patient the possibility of treating or midodrine or fludrocortisone, but she would like to discuss this approach further with Dr. Small. PHYSICAL EXAMINATION AT THE TIME OF DISCHARGE: Blood pressure of 140/66, heart rate of 70 and regular, respiratory rate 16, oxygen saturation 87% on room air, temperature of 98.0. General: The patient is a very pleasant 77-year-old female who is in no acute distress, alert, awake, and oriented x3. HEENT: Head : The patient has ecchymotic areas on her forehead that appears to be resolving likely from the fall 10 days ago. Eyes: Extraocular muscles are intact. Pupils are equal, reactive to light and accommodation. Oropharynx is clear. Mucosa moist. Neck: Supple. No JVD. No bruits bilaterally. Cardiovascular: Regular rate and rhythm. No murmur. Respiratory: Faint crackles in right lower lobe, otherwise clear. Abdomen: Soft and nontender. Bowel sounds are present in 4 quadrants. Extremities: There is no edema. Pulses are +2 bilaterally. No clubbing or cyanosis. Right wrist is in cast. Neuro Evaluation: Speech clear. Cranial nerves II through XII grossly intact. Motor strength is 5/5 bilaterally. Psychiatric Evaluation: Alert and oriented x3 with no evidence of anxiety or depression. Please note that this is a short summary of the patient's hospitalization. Please refer to further medical records for details. TIME SPENT: Approximately 45 minutes was spent on the patient's discharge. [id number]/[facility] #: [id number] MTDD
== END 2017-09-27 15:20 | disposition home or self-care (01) | DRG 194 ==
LOC: ED 13:34 → MEDTELE 16:27 → OBSVTOIN 09-25 10:34
PROVIDERS: ADMIT Internal Medicine; ATTEND Internal Medicine
DX: J18.9 Pneumonia, unspecified organism (principal); J44.0 Chronic obstructive pulmonary disease with (acute) lower respiratory infection; N17.9 Acute kidney failure, unspecified; E78.5 Hyperlipidemia, unspecified; I95.1 Orthostatic hypotension; R29.6 Repeated falls; I10 Essential (primary) hypertension; G89.29 Other chronic pain; M54.9 Dorsalgia, unspecified; F32.9 Major depressive disorder, single episode, unspecified; G62.9 Polyneuropathy, unspecified; K21.9 Gastro-esophageal reflux disease without esophagitis; N39.490 Overflow incontinence; E03.9 Hypothyroidism, unspecified; Z66 Do not resuscitate; M19.90 Unspecified osteoarthritis, unspecified site; M85.80 Other specified disorders of bone density and structure, unspecified site; F41.9 Anxiety disorder, unspecified; K44.9 Diaphragmatic hernia without obstruction or gangrene; R40.2362 Coma scale, best motor response, obeys commands, at arrival to emergency department; R40.2132 Coma scale, eyes open, to sound, at arrival to emergency department; R40.2232 Coma scale, best verbal response, inappropriate words, at arrival to emergency department; R33.9 Retention of urine, unspecified; Z99.81 Dependence on supplemental oxygen; Z90.710 Acquired absence of both cervix and uterus; Z82.49 Family history of ischemic heart disease and other diseases of the circulatory system; Z87.891 Personal history of nicotine dependence; Z98.51 Tubal ligation status; Z98.49 Cataract extraction status, unspecified eye; Z84.1 Family history of disorders of kidney and ureter; Z79.818 Long term (current) use of other agents affecting estrogen receptors and estrogen levels
CPT/HCPCS: 36415; 70450; 71045; 80048; 80053; 80307; 80320; 80329; 81003; 81015; 82140; 82550; 83605; 83735; 83880; 84100; 84145; 84443; 84484; 85025; 85610; 85652; 86140; 87040; 87086; 87899; 93005; 94640; 99283; A9270-GY; G0378; G0480; G8978-GP-CK; G8979-GP-CI; J0456; J0610; J0696; J1644; J2405

== ENCOUNTER 2018-01-22 10:03 | Emergency (ER) | payer MEDICARE ==
[2018-01-22 10:35] VITALS: BP 118/53
--- NOTE | 2018-01-22 11:09 | UC ---
Respiratory Complaint HPI - HPI Summary HPI Summary: 77 year old woman comes to clinic today with chief complaint of cough chest congestion and yellow sputum. Also has a sore throat. Been going on about a day or so. Patient has COPD and it's making it hard for her to breathe. She was not able to sleep overnight due to the coughing and short of breath. No chest pain no pedal edema no history of congestive heart failure. - History of Current Complaint Chief Complaint: UCRespiratory Stated Complaint: COUGH Time Seen by Provider: 01/22/18 10:55 Pain Intensity: 0 - Allergies/Home Medications Allergies/Adverse Reactions: Allergies Allergy/AdvReac Type Severity Reaction Status Date / Time No Known Allergies Allergy Verified 01/22/18 10:35 PMH/Surg Hx/FS Hx/Imm Hx Cardiovascular History: Hypertension Respiratory History: COPD GI/ History: Gastroesophageal Reflux Other History Of: Negative For: Anticoagulant Therapy - Surgical History Surgical History: Yes Surgery Procedure, Year, and Place: HYSTERECTOMY, TUBAL LIGATION, BREAST BIOPSY , CATARACT sx. Thoracentesis, lung bx. bilat wrist arthroscopies - Family History Known Family History: Positive: Unknown, Renal Disease - Social History Alcohol Use: None Substance Use Type: None Smoking Status (MU): Former Smoker Type: Cigarettes Amount Used/How Often: smoked 40 years, 1/2 ppd Length of Time of Smoking/Using Tobacco: 40 YRS Have You Smoked in the Last Year: No When Did the Patient Quit Smoking/Using Tobacco: 11/2003 - Immunization History Most Recent Influenza Vaccination: 11/2013 Most Recent Tetanus Shot: UP TO DATE Most Recent Pneumonia Vaccination: 12/2012 Review of Systems All Other Systems Reviewed And Are Negative: Yes Constitutional: Positive: Negative Skin: Positive: Negative Eyes: Positive: Negative ENT: Positive: Sore Throat, Nasal Discharge Respiratory: Positive: Shortness Of Breath, Cough Cardiovascular: Positive: Negative Gastrointestinal: Positive: Negative Motor: Positive: Negative Neurovascular: Positive: Negative Musculoskeletal: Positive: Negative. Negative: Edema Neurological: Positive: Negative Psychological: Positive: Negative Is Patient Immunocompromised?: No Physical Exam Triage Information Reviewed: Yes Appearance: No Pain Distress, Well-Nourished, Ill-Appearing - MILD Vital Signs: Initial Vital Signs Temp 98 F 01/22/18 10:31 Pulse 100 01/22/18 10:31 Resp 22 01/22/18 10:31 BP 118/53 01/22/18 10:31 Pulse Ox 92 01/22/18 10:31 Vital Signs Reviewed: Yes Eye Exam: Normal Eyes: Positive: Conjunctiva Clear ENT: Positive: Pharyngeal erythema, Nasal drainage Neck exam: Normal Neck: Positive: Supple Respiratory: Positive: Lungs clear, Normal breath sounds, No respiratory distress Cardiovascular: Positive: RRR Musculoskeletal Exam: Normal Musculoskeletal: Positive: Strength Intact, ROM Intact, No Edema Neurological Exam: Normal Neurological: Positive: Alert, Muscle Tone Normal Psychological Exam: Normal Psychological: Positive: Age Appropriate Behavior Skin Exam: Normal UC Diagnostic Evaluation - Laboratory O2 Sat by Pulse Oximetry: 92 Respiratory Course/Dx - Course Course Of Treatment: I spoke with the patient about viral versus bacterial infections and the role of antibiotics. Patient prefers to be on antibiotics at this time. Her oxygen saturation is 92% on room air which the patient tells me is normal for her. We discussed starting a course of steroids but the patient declined feeling she's not that sick or for breath at this time. Plan is to treat with Eleazar azithromycin and get reevaluated if worse. Patient does meet she's had pneumonia before and I let her know if she gets worse feels like she has pneumonia and she should go to the emergency department and she agreed. - Differential Dx/Diagnosis Provider Diagnosis: Bronchitis Discharge - Sign-Out/Discharge Documenting (check all that apply): Patient Departure All imaging exams completed and their final reports reviewed: No Studies - Discharge Plan Condition: Stable Disposition: HOME Prescriptions: Azithromyxin GABE (NF) [Z-Gabe (Zithromax) 250 mg tabs #6] 2 tab PO .TODAY, THEN 1 DAILY #6 tab Patient Education Materials: Acute Bronchitis (ED) Referrals: Triny Small MD [Primary Care Provider] - Additional Instructions: FOLLOW UP WITH YOUR DOCTOR IF NOT COMPLETELY IMPROVED. GET RECHECKED FOR ANY WORSENING OF YOUR CONDITION OR QUESTIONS OR CONCERNS. - Billing Disposition and Condition Condition: STABLE Disposition: Home
== END 2018-01-22 11:22 | disposition home or self-care (01) ==
LOC: UCEAST 10:03
DX: J40 Bronchitis, not specified as acute or chronic (principal); J44.9 Chronic obstructive pulmonary disease, unspecified; Z87.891 Personal history of nicotine dependence; I10 Essential (primary) hypertension
CPT/HCPCS: 99212; G0463

== ENCOUNTER → 2018-07-08 08:28 | Emergency (ER) | payer MEDICARE ==
[~2018-07-08 08:28] MED LIST changes: +Albuterol/Ipratropium NEB.SOL* Albuterol 2.5 MG/Ipratropium 0.5 MG 3 ML INH ONE; -Buffered Lidocaine 1% SYRIN* 5 ML/SYR SYRINGE INTRADERM ONE; -Buffered Lidocaine 1% SYRIN* 5 ML/SYR SYRINGE ONE; -Famotidine IV* 10 MG/ML 2 ML (20 mg) IV ONE; -Famotidine IV* 10 MG/ML 2 ML (20 mg) ONE; -Metoclopramide TAB* 10 MG ONE; -Metoclopramide TAB* 10 MG PO ONE; -ceFAZolin 2 GM PREMIX(*) 2 GM/50 ML BAG IVPB ONE; +methylPREDNISolone 125 MG* 2 ML VIAL IV ONE
--- NOTE | 2018-07-08 09:00 | UC ---
Shortness of Breath HPI - HPI Summary HPI Summary: Patient presents to urgent care to telemetry triage. Patient is a 77-year-old female with a history of COPD. Patient states she has oxygen that she uses as needed. Patient states mostly at night when walking. Patient states she did not use her oxygen yesterday because she "didn't feel well "patient. Patient states this morning she woke up and she felt weak and unsteady. Patient states the room was spinning. Patient has nausea or vomiting. No fevers or chills. No chest pain or shortness of breath. Patient does have a nonproductive cough. Patient is wheezing. Patient slow to answer questions which her says is sometimes baseline. Patient's states she went to Hospital so she came here. Medications reviewed this visit. - History of Current Complaint Chief Complaint: UCRespiratory Stated Complaint: COUGH DIZZY Time Seen by Provider: 07/08/18 08:39 Hx Obtained From: Patient, Family/Heating And Ventilation Engineer - , Medical Records ?: No Onset/Duration: Gradual Onset, Lasting Days Dyspnea At: Exertion Associated Signs & Symptoms: Positive: Cough (Nonproductive) - Allergy/Home Medications Allergies/Adverse Reactions: Allergies Allergy/AdvReac Type Severity Reaction Status Date / Time No Known Allergies Allergy Verified 07/08/18 08:41 Home Medications: Home Medications Budesonide/Formote 160/4.5(NF) [Symbicort 160/4.5 (NF)] 2 puff INH BID 07/08/18 [History Confirmed 07/08/18] PMH/Surg Hx/FS Hx/Imm Hx Previously Healthy: Yes Cardiovascular History: Hypertension Respiratory History: COPD, Asthma Other History Of: Negative For: Anticoagulant Therapy - Surgical History Surgical History: Yes Surgery Procedure, Year, and Place: HYSTERECTOMY, TUBAL LIGATION, BREAST BIOPSY , CATARACT sx. Thoracentesis, lung bx. bilat wrist arthroscopies - Family History Known Family History: Positive: Renal Disease - Social History Occupation: Retired Lives: With Family Alcohol Use: None Substance Use Type: None Smoking Status (MU): Former Smoker Type: Cigarettes Amount Used/How Often: smoked 40 years, 1/2 ppd Length of Time of Smoking/Using Tobacco: 40 YRS Have You Smoked in the Last Year: No When Did the Patient Quit Smoking/Using Tobacco: 2003 - Immunization History Most Recent Influenza Vaccination: 2018 Most Recent Tetanus Shot: UP TO DATE Most Recent Pneumonia Vaccination: 12/2012 Review of Systems All Other Systems Reviewed And Are Negative: Yes Constitutional: Positive: Fatigue Eyes: Positive: Negative ENT: Positive: Negative Respiratory: Positive: Shortness Of Breath, Cough Cardiovascular: Positive: Negative Gastrointestinal: Positive: Negative Physical Exam - Summary Physical Exam Summary: Vital Signs Reviewed: Yes A+Ox3, poor historian Eyes: Conjunctiva Clear, ОЛЬГА. EOM intact and full ENT: Hearing grossly normal TM x 2 clear, mmdry, uvula midline, no exudate, no erythema Neck: Positive: Supple Respiratory: Positive: audible wheeze, coarse breath sound throughout, no increase RR Cardiovascular: RRR nl s1, s2 no m/r CBT <2 sec abd soft + BS nt/nd no guarding, no distension Musculoskeletal Exam: MORA x 4 without difficulty Strength Intact, ROM Intact Neurological: Positive: Alert, appropriate, poor historian Psychological: Positive: Normal Response To Family Skin: Positive: no rash, no ecchymosis Vital Signs: Initial Vital Signs Temp 99.3 F 07/08/18 08:32 Pulse 73 07/08/18 08:32 Resp 18 07/08/18 08:32 BP 127/56 07/08/18 08:32 Pulse Ox 86 07/08/18 08:32 Diagnostics - EKG Cardiac Rate: NL Cardiac Rhythm: Sinus: Normal Ectopy: None ST Segment: Normal Re-Evaluation - Re-Evaluation First Eval Comment: cAlled to room by RN. Pt receiving duoneb, received solumedrol. Pt with episode of unresponsiveness - <10 sec - pt initially with mild confusion - improved. recheck EKG : no acute changes from first. BG wnl. contacted ED - updated Tracy Benjamin, and then Dr. Solis - aware of transient change in pt's MS Shortness of Breath Dx - Course Course Of Treatment: Pt presents to UC with husbandl Pt with audible wheezes, sob, cough and dizziness today. pt did not wear oxygen today and has not used her nebs pt poor historian. Pt noted to have RA sat 86% exam pt tired appearing, poor historian and diffuse audible wheeze d/wpt and - recommend EMS transfer to ED neb IV steroid agreement with plan d/w Dr. Solis in ED - aware and accepting pt - Differential Dx/Diagnosis Provider Diagnosis: Hypoxia, Shortness of breath Discharge - Sign-Out/Discharge Documenting (check all that apply): Patient Departure All imaging exams completed and their final reports reviewed: No Studies - Discharge Plan Condition: Fair Disposition: TRANS HIGHER LVL OF CARE FAC Referrals: Triny Small MD [Primary Care Provider] - - Billing Disposition and Condition Condition: FAIR Disposition: Trans Higher Lvl of Care Fac
[2018-07-08 09:40] VITALS: BP 115/74
== END | disposition short-term general hospital (02) ==
LOC: UCEAST 08:28
DX: R06.02 Shortness of breath (principal); R09.02 Hypoxemia; R42 Dizziness and giddiness; I10 Essential (primary) hypertension; J44.9 Chronic obstructive pulmonary disease, unspecified; Z87.891 Personal history of nicotine dependence
CPT/HCPCS: A9270-GY; J2930

== ENCOUNTER 2018-07-08 10:01 | Inpatient (IN) | payer MEDICARE ==
[2018-07-08] MEDS ORDERED: NS 0.9% 1000 ML** 1,000 ML IV ONE (10:05)
--- NOTE | 2018-07-08 10:12 | ED ---
Neurological HPI - HPI Summary HPI Summary: A 77 y/o female brought in by [facility] ambulance presents to [facility] with a chief complaint of left sided weakness that started en route. The [facility] Per EMS, the patients claims that the patient was last seen well last night and started having slurred speech this morning. When she went to convenient care the patient was lethargic and had a syncopal episode. She was given Solu-medrol and duoneb for her SOB at [facility] and was given another duoneb en route and then the left sided weakness was noticed. The patients blood glucose was 126. She has a Hx of COPD. Dr. Solis was at bedside upon arrival at 10:02 for exam and [facility] was called at 10:05. - History of Current Complaint Stated Complaint: SHORT OF BREATH FROM CC PER EMS Hx Obtained From: Patient, EMS Onset/Duration: Sudden Onset, Started hours ago, Still Present Timing: Constant Onset Severity: Moderate Current Severity: Moderate Character: Weak, Impaired Speech Aggravating: Nothing Alleviating: Nothing Associated Signs and Symptoms: Positive: Shortness of Breath - Additional Pertinent History Primary Care Physician: BRAYAN - Allergy/Home Medications Allergies/Adverse Reactions: Allergies Allergy/AdvReac Type Severity Reaction Status Date / Time No Known Allergies Allergy Verified 07/08/18 08:41 PMH/Surg Hx/FS Hx/Imm Hx Endocrine/Hematology History: Reports: Hx Thyroid Disease - hypothyroid Denies: Hx Anticoagulant Therapy, Hx Diabetes, Hx Systemic Lupus Erythematosus, Hx Anemia Cardiovascular History: Reports: Hx Hypercholesterolemia, Hx Hypertension - ON MEDS, Hx Syncope - PSYCHOGENIC SYNCOPE Denies: Hx Congestive Heart Failure, Hx Pacemaker/ICD, Other Cardiovascular Problems/Disorders Respiratory History: Reports: Hx Asthma, Hx Chronic Bronchitis, Hx Chronic Obstructive Pulmonary Disease (COPD) - 4L at night, Hx Pneumonia, Hx Sleep Apnea , Other Respiratory Problems/Disorders GI History: Reports: Hx Gastroesophageal Reflux Disease, Hx Gastrointestinal Bleed, Hx Hiatal Hernia Denies: Hx Ulcer History: Reports: Hx Acute Renal Failure, Hx Renal Disease, Other Problems /Disorders - hx of sepsis r/t pneumonia and UTI none at this time Denies: Hx Dialysis Musculoskeletal History: Reports: Hx Arthritis, Hx Back Problems - back pain, Other Musculoskeletal History - OSTEOPENIA Denies: Hx Rheumatoid Arthritis, Hx Osteoporosis Sensory History: Reports: Hx Contacts or Glasses - glasses Denies: Hx Hearing Aid Opthamlomology History: Reports: Hx Contacts or Glasses - glasses Neurological History: Reports: 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 Thoracentesis, lung bx. bilat wrist arthroscopies Hx Anesthesia Reactions: No - Immunization History Date of Tetanus Vaccine: n Date of Influenza Vaccine: ukn Infectious Disease History: Denies: Hx Clostridium Difficile, Hx Hepatitis, Hx Human Immunodeficiency Virus (HIV), Hx of Known/Suspected MRSA, Hx Shingles, Hx Tuberculosis, Hx Known/ Suspected VRE, Hx Known/Suspected VRSA, History Other Infectious Disease - Family History Known Family History: Positive: Renal Disease - Social History Alcohol Use: None Hx Substance Use: No Substance Use Type: Reports: None Hx Tobacco Use: Yes Smoking Status (MU): Former Smoker Type: Cigarettes Amount Used/How Often: smoked 40 years, 1/2 ppd Length of Time of Smoking/Using Tobacco: 40 YRS Have You Smoked in the Last Year: No Review of Systems Positive: Shortness Of Breath Positive: Weakness, Syncope, Slurred Speech All Other Systems Reviewed And Are Negative: Yes Physical Exam - Summary Physical Exam Summary: VITAL SIGNS: Reviewed. GENERAL: Patient is a well-developed and nourished FEMALE who is lying comfortable in the stretcher. Patient is not in any acute respiratory distress. HEAD AND FACE: No signs of trauma. No ecchymosis, hematomas or skull depressions. No sinus tenderness. EYES: PERRLA, EOMI x 2, No injected conjunctiva, no nystagmus. EARS: Hearing grossly intact. Ear canals and tympanic membranes are within normal limits. MOUTH: Oropharynx within normal limits. NECK: Supple, trachea is midline, no adenopathy, no JVD, no carotid bruit, no c- spine tenderness, neck with full ROM. CHEST: Symmetric, no tenderness at palpation LUNGS: Clear to auscultation bilaterally. No wheezing or crackles. CVS: Regular rate and rhythm, S1 and S2 present, no murmurs or gallops appreciated. ABDOMEN: Soft, non-tender. No signs of distention. No rebound no guarding, and no masses palpated. Bowel sounds are normal. EXTREMITIES: FROM in all major joints, no edema, no cyanosis or clubbing. NEURO: Somnolent, Alert and oriented x 3. left side weakness. SKIN: Dry and warm. Triage Information Reviewed: Yes Vital Signs Reviewed: Yes - Charlotte Coma Scale Best Eye Response: 4 - Spontaneous Best Motor Response: 6 - Obeys Commands Best Verbal Response: 5 - Oriented Coma Scale Total: 15 Diagnostics - Laboratory Result Diagrams: 07/09/18 05:23 07/09/18 05:23 Lab Statement: Any lab studies that have been ordered have been reviewed, and results considered in the medical decision making process. - Radiology CXR Radiology Interpretation Completed By: Radiologist Summary of Radiographic Findings: Bronchopneumonia. ED physician has reviewed this imaging report. - CT Brain CT Interpretation Completed By: Radiologist Summary of CT Findings: . No CT evidence for intracranial hemorrhage or other acute intracranial process. Chronic small lacunar infarct at the LEFT basal ganglia. ED physician has reviewed this imaging report. - EKG 10:23 Cardiac Rate: NL EKG Rhythm: Sinus Rhythm EKG Comparison: No Significant Change Summary of EKG Findings: NSR at 75 bpm, no ST elevations, ST depressions in v4, v6, Similar to previous EKG done 02/15/18 NIH Scale - NIH Scale Level of Consciousness: Alert/Keenly Responsive Ask Patient the Month and His/Her Age: Both Correct Ask Pt to Open/Close Eyes and Events Manager/Release Non-Paretic Hand: Both Correctly Best Gaze (Only Horizontal Eye Movement): Normal Visual Field Testing: No Visual Loss Facial Paresis-Pt to Smile & Close Eyes or Grimace Symmetry: Normal/Symmetrical Motor Function - Right Arm: No Drift-Holds 10 Seconds Motor Function - Left Arm: Drifts LT 10 seconds Motor Function - Right Leg: No Drift-Holds 10 Seconds Motor Function - Left Leg: Drifts LT 10 seconds Limb Ataxia-Must be out of Proportion to Weakness Present: Present in One Limb Sensory (Use Pinprick to Test Arms/Legs/Trunk/Face): Pinprick Less on Affected Best Language (Describe Picture, Name Items): No Aphasia Dysarthria (Read Several Words): Normal Extinction and Inattention: No Abnormality Total Score: 4 Re-Evaluation - Re-Evaluation First Eval Re-Evaluation Time: 10:24 Change: Unchanged Comment: back in room to re-eval the patient after CT was taken. Second Eval Re-Evaluation Time: 10:50 Change: Unchanged Comment: Discussed case with . Third Eval Re-Evaluation Time: 11:05 Change: Unchanged Comment: Dr. Jay reports that he does not believe that she has a neurological disease, no interventional neurology needed, recommends to just proceed to rule out any pulmonary pathology. Course/Dx - Course Assessment/Plan: A 77 y/o female brought in by [facility] ambulance presents to [facility] with a chief complaint of left sided weakness that started en route. The patient [facility] at [facility] for [facility]. Per EMS, the patients claims that the patient was last seen well last night and started having slurred speech this morning. When she went to convenient care the patient was lethargic and had a syncopal episode. She was given Solu-medrol and duoneb for her SOB at and was given another duoneb en route and then the left sided weakness was noticed. The patients blood glucose was 126. She has a Hx of COPD. Dr. Solis was at bedside upon arrival at 10:02 for exam and [facility] was called at 10: 05. Patient has past medical history significant for sleep apnea, chronic pain , dyslipidemia, GERD, peripheral neuropathy, depression, fibromyalgia, coffee- ground emesis, GI bleed on 11/17/13, narcotic overdose, vasovagal syncope, orthostatic syncope, sepsis, acute and chronic renal failure, COPD, hypertension , CVA. EKG shows NSR w/o ST elevations. Has a Q-wave in 3, and ST depression in V4-V6. EKG is similar to previous EKG done in 02/15/18. Initially we called had called a [facility] however it is confident that the patients symptoms doesn t have an onset of time. The last time she was seen well was last night. I discussed the case with Dr. Martinez who recommends to call [facility] to rule out large vessel disease. Dr. Jay from Neurology from [facility] is consulting with patient via telestroke at 10:50. Dr. Jay reports that he doesnt think that his symptoms are secondary to a CVA. He recommends to keep working on the respiratory pathology. Chest x-ray shows bronchial pneumonia. Patient was started on Rocephin and azithromycin. I discuss my physical exam, findings and test results with Dr. Leone from the hospitalist services and he agrees to admit patient to his services. Patient is hemodynamically stable - Diagnoses Provider Diagnoses: Bronchopneumonia, Syncope - Physician Notifications Discussed Care Of Patient With: Amando Martinez Time Discussed With Above Provider: 10:26 Instructed by Provider To: Other - recommended to call [facility] - Critical Care Time Critical Care Time: 30-74 min Discharge - Sign-Out/Discharge Documenting (check all that apply): Patient Departure - admit Patient Received Moderate/Deep Sedation with Procedure: No - Discharge Plan Condition: Fair Disposition: ADMITTED TO [facility] - Billing Disposition and Condition Condition: FAIR Disposition: Admitted to [facility] - Attestation Statements Document Initiated by Scribe: Yes Documenting Scribe: Luis Enrique Jesus Provider For Whom Scribe is Documenting (Include Credential): Sean Solis MD Scribe Attestation: I, Luis Enrique Jesus, scribed for Sean Solis MD on 07/09/18 at 1543. Scribe Documentation Reviewed: Yes Provider Attestation: The documentation as recorded by the Luis Enrique norman accurately reflects the service I personally performed and the decisions made by me, Sean Solis MD Status of Scribe Document: Viewed Consult Consult: At 10:30 discussed case with Carrillo At 10:[address] Jay, neurologist from [facility], who will telestroke with the patient. At 12:[address] Leone, hospitalist, who accepted the patient for admission.
[2018-07-08 10:45] LABS: ABS Basophils 0.1 10^3/ul (0-0.2); ABS Eosinophils 0.1 10^3/ul (0-0.6); ABS Lymphocytes 1.7 10^3/ul (1.0-4.8); ABS Monocytes 1.2 10^3/ul (0-0.8); ABS Neutrophils 15.7 10^3/ul (1.5-7.7); Eosinophil % 0.6 %; Hematocrit 36 % (35-47); Hemoglobin 11.7 g/dL (12.0-16.0); Lymphocyte % 8.9 %; Mean Corpuscular HGB Conc 33 g/dL (31-36); Mean Corpuscular Hemoglobin 27 pg (27-31); Mean Corpuscular Volume 84 fL (80-97); Mean Platelet Volume 7.7 fL (7.4-10.4); Nucleated Red Blood Cells % 0.1; Platelet Count 429 10^3/uL (150-450); Red Cell Distribution Width 18 % (10.5-15); White Blood Count 18.8 10^3/uL (3.5-10.8)
[2018-07-08 10:56] LABS: Activated Partial Thrombo Time 27.6 seconds (26.0-36.3); INR 0.91 (0.82-1.09)
[2018-07-08 11:00] LABS: Albumin/Globulin Ratio 1.3 (1-3); BUN/Creatinine Ratio 20.1 (8-20); Calcium 9.2 mg/dL (8.6-10.3); EGFR African American 36.8 (>60); EGFR Non-African American 30.4 (>60); Globulin 3.1 g/dL (2-4); HDL Cholesterol 66.4 mg/dL; Potassium 4.1 mmol/L (3.5-5.0); Total Bilirubin 0.4 mg/dL (0.2-1.0); Total Protein 7.1 g/dL (6.4-8.9)
[2018-07-08] MEDS ORDERED: cefTRIAXone(*) 1 GM in NS 0.9% 50 ML* 50 ML IVPB ONE (11:48)
[2018-07-08] MEDS ORDERED: Azithromycin 500 mg/250 ml NS 500 MG/250 ML BAG IVPB ONE (11:48)
[2018-07-08] MEDS ORDERED: Ondansetron INJ* 2 MG/ML VIAL IV PRN (13:07)
[2018-07-08] MEDS ORDERED: Albuterol 2.5 MG/3 ML NEB.SOL* (0.083%) INH PRN (13:08)
[2018-07-08] MEDS ORDERED: cefTRIAXone(*) 1 GM ADVAN/BAG ONE (13:11)
[2018-07-08] MEDS ORDERED: ALPRAZolam TAB* 0.25 MG PO PRN (13:37)
[2018-07-08] MEDS ORDERED: oxyCODONE TAB* 5 MG TAB PO PRN (13:37)
--- NOTE | 2018-07-08 14:01 | HP ---
History of Present Illness - History of Present Illness Reason for Visit: cough,vomiting History of Present Illness: Patient is 77 year old woman with h/o COPD, who presented to urgent care with cough and vomiting. She is unsure whether she was vomiting, or coughed to the point of vomiting, but she is sure she saw streaks of blood in the emesis or sputum. She had a dose of solu-medrol in urgent care, with an albuterol nebulizer, and she then had syncope and lethargy at urgent care. She was transported to the ER, but on the way the ambulance crew noted LT-sided weakness and slurred speech. Her was questioned about this in the ER, and he stated that weakness and slurred speech began yesterday. The patient had a Tele-stroke evaluation, and no intervention was advised. The neurologist advised the ER doctor to pursue pulmonary issues. Patient is not aware of any slurred speech, weakness, other than she states her LEFT leg is weak due to lumbar disc herniation. She is concerned about the "vomiting" of blood last night that has now resolved, and the coughing. She denies chest pain, dyspnea, fever. PCP: Dr. Small - Past Medical History Cardiac: HTN, Hyperlipidemia Pulmonary: COPD - on 2-3 L NC O2 at home E M ASSEMBLER: Other - peripheral neuropathy Gastrointestinal: GERD - with hiatal hernia, GI bleed - in 2013 Psych: Anxiety, Depression Musculoskeletal: Other - LT sciatica, RT piriformis syndrome Rheumatologic: Other - fibromyalgia Infectious Disease: Other - h/o c diff colitis, h/o LT lung abscess 2009 Endocrine: Hypothyroidism Grav: 3 Para: 3 Ab: 0 - Past Surgical History Past Surgical History: Breast Biopsy, Cataract Removal, Hysterectomy, Other - thoracentesis, Tubal Ligation - Past Family History Family History: CAD - father [place] in 50s, mother CAD in 70s, son suicide 1 yr ago - Past Social History Smoke: Quit - 2003 Occupation: retired department secretary for [employer] Alcohol: Occassional Drugs: None Lives: With Family - , 2 children, Sean is HCP Review of Systems - Measurements Intake and Output: Intake and Output Last 24 Hours 07/06/18 07/07/18 07/08/18 07/09/18 06:59 06:59 06:59 06:59 Weight 63.503 kg - Review of Systems Constitutional Symptoms: Negative: Weight Gain Dermatology: Positive: Normal HEENT: Positive: Normal Eyes: Positive: Normal Thyroid: Positive: Primary Hypothyroidism Pulmonary: Positive: Cough, Sputum, Hemoptysis, COPD Negative: Respiratory Distress, Shortness of Breath Cardiology: Negative: Chest Pain, Palpitations, Edema Gastroenterology: Positive: Nausea, Vomiting, Haematemesis Negative: Abdominal Pain Genital - Urinary: Positive: Normal Genitourinay - Female: Positive: Menopause Musculoskeletal: Positive: Low Back Pain, Sciatica Endocrinology: Positive: Thyroid Problems Neurology: Positive: Numbness\\Paresthesiae, Other - surgery planned lumbar disc LT side, cancelled, will be rescheduled Psychiatry: Positive: Depression, Anxiety Objective Active Medications: Home Meds Alprazolam (Xanax Tab*) 0.25 mg PO Q8HR PRN PRN Reason: ANXIETY Atorvastatin Calcium (Lipitor*) 20 mg PO QPM [facility] Budesonide/Formoterol Fumarate (Symbicort 160/4.5 (Nf)) 2 puff INH BID [facility]; Protocol Duloxetine HCl (Cymbalta Cap*) 20 mg PO DAILY [facility] Estrogens Conjugated (Premarin Tab*) 0.3 mg PO DAILY [facility] Gabapentin (Neurontin Cap(*)) 300 mg PO SEE INSTRUCTIONS [facility] Levothyroxine Sodium (Synthroid Tab*) 50 mcg PO DAILY@0600 [facility] Losartan Potassium (Cozaar Tab*) 100 mg PO DAILY [facility] Methocarbamol (Robaxin Tab*) 500 mg PO TID [facility] Metoprolol Succinate (Toprol Xl Tab*) 50 mg PO DAILY [facility] Omeprazole (Prilosec Cap* (Nf)) 20 mg PO BID [facility] Oxycodone HCl (Roxycodone Tab*) 5 mg PO Q4H PRN PRN Reason: PAIN Polyethylene Glycol/Electrolytes (Miralax*) 17 gm PO DAILY [facility] Temazepam (Restoril Cap*) 15 mg PO BEDTIME PRN PRN Reason: SLEEP Tiotropium Sparks (Spiriva Cap.Inh*) 1 cap INH DAILY [facility] Vital Signs - 8 hr 07/08/18 07/08/18 07/08/18 10:08 10:24 10:29 Temperature Pulse Rate 74 75 77 Respiratory 15 Rate Blood Pressure 122/60 138/61 (mmHg) O2 Sat by Pulse 98 94 92 Oximetry 07/08/18 07/08/18 07/08/18 13:24 13:30 13:48 Temperature 36.9 C 36.9 C Pulse Rate 76 75 Respiratory 14 15 Rate Blood Pressure 120/65 119/89 120/65 (mmHg) O2 Sat by Pulse 94 93 Oximetry Oxygen Devices in Use Now: Nasal Cannula Appearance: alert, no acute distress Eyes: No Scleral Icterus Ears/Nose/Mouth/Throat: NL Teeth, Lips, Gums Neck: NL Appearance and Movements; NL JVP, Trachea Midline Respiratory: Symmetrical Chest Expansion and Respiratory Effort, - - ronchi and rales throughout bilat lower 2/3 lung mann Cardiovascular: NL Sounds; No Murmurs; No JVD, RRR Abdominal: NL Sounds; No Tenderness; No Distention, No Hepatosplenomegaly Lymphatic: No Cervical Adenopathy Extremities: No Edema Skin: No Rash or Ulcers Neurological: Alert and Oriented x 3, - - no dysarthria, no UE limb weakness, LLE 5/5 proxima, 4/5 distal ankle flex/extend Lines/Tubes/Other Access: Clean, Dry and Intact Peripheral IV Nutrition: Taking PO's Result Diagrams: 07/08/18 10:35 07/08/18 10:34 Additional Lab and Data: Laboratory Tests 07/08/18 07/08/18 07/08/18 10:30 10:34 10:34 INR (Anticoag Therapy) 0.91 APTT 27.6 Glucose 130 H POC Glucose (mg/dL) 171 H Lactic Acid Calcium 9.2 Troponin I 0.00 Total Protein 7.1 07/08/18 10:34 INR (Anticoag Therapy) APTT Glucose POC Glucose (mg/dL) Lactic Acid 1.1 Calcium Troponin I Total Protein Diagnostic Imaging: CXR: RT side patchy infiltrate, LT basilar infiltrate Head CT: LT basal ganglia lacune, old, no new stroke/hemorrhage EKG Data: Normal sinus rhythm, normal axis, ST depression V4-6, unchanged from 03/03 Assess/Plan/Problems-Billing Assessment: 77 year old presenting with cough, syncope, possible LT-sided weakness. - Patient Problems (1) Pneumonia Current Visit: Yes Status: Acute Priority: High Code(s): J18.9 - PNEUMONIA , UNSPECIFIED ORGANISM SNOMED Code(s): 484708874 Comment: - Patient will be admitted for multilobar pneumonia. - Will check for influenza, legionella, pneumococcal Ag. - Start course of ceftriaxone and azithromycin - Supplemental O2 necessary (2) TIA (transient ischemic attack) Current Visit: Yes Status: Acute Priority: Medium Code(s): G45.9 - TRANSIENT CEREBRAL ISCHEMIC ATTACK, UNSPECIFIED SNOMED Code(s): 640313915 Comment: -Stroke/TIA symptoms were resolved when evaluated in ER, other than LT leg weakness that is likely related to sciatica/disc disease -Will monitor, start aspirin. -MRI planned for tomorrow to assess for stroke (3) COPD (chronic obstructive pulmonary disease) Current Visit: No Status: Acute Priority: Medium Code(s): J44.9 - CHRONIC OBSTRUCTIVE PULMONARY DISEASE, UNSPECIFIED SNOMED Code(s): 72766207 Comment: - no clear wheezing, COPD exacerbation - start bronchodilators when wheezing - if wheezing or hypoxia worsens, will start oral steroids. (4) DVT prophylaxis Current Visit: No Status: Acute Priority: Low Code(s): [id number] - SNOMED Code(s): 519233740 Comment: - Heparin SQ. Status and Disposition: inpatient
[2018-07-08] MEDS: Gabapentin CAP(*) 300 MG PO SCH ×2 (15:52→21:05)
[2018-07-08] MEDS: Methocarbamol TAB* 500 MG PO SCH ×2 (15:53→21:05)
[2018-07-08] MEDS: predniSONE TAB* 20 MG PO SCH (15:53)
[2018-07-08] MEDS: Heparin VIAL(*) 5000 UNITS/ML VIAL (FIVE THOUSAND) SUBCUT SCH ×2 (15:54→21:05)
[2018-07-08 17:40] LABS: Influenza A Molecular NEGATIVE (Negative); Influenza B Molecular NEGATIVE (Negative)
[2018-07-08] MEDS: Atorvastatin* 20 MG TAB PO SCH (17:42)
[2018-07-08] MEDS: Aspirin EC TAB* 81 MG TAB.EC PO SCH (17:43)
[2018-07-08] MEDS: FORMOTE INH SCH (20:12)
[2018-07-08] MEDS: MDI INH SCH (20:12)
[2018-07-08] MEDS: BUDESONIDE INH SCH (20:12)
[2018-07-08] MEDS: Pantoprazole TAB * 40 MG TAB PO SCH (21:05)
[2018-07-08] MEDS: Temazepam CAP* 15 MG PO PRN (21:11)
[2018-07-08] MEDS ORDERED: Melatonin 3 MG TAB PO PRN (22:50)
[2018-07-09] MEDS: Levothyroxine TAB* 50 MCG TAB PO SCH (05:23)
[2018-07-09] MEDS: Heparin VIAL(*) 5000 UNITS/ML VIAL (FIVE THOUSAND) SUBCUT SCH ×3 (05:23→20:52)
[2018-07-09 05:40] LABS: ABS Lymphocytes 0.8 10^3/ul (1.0-4.8); ABS Monocytes 0.3 10^3/ul (0-0.8); ABS Neutrophils 11.7 10^3/ul (1.5-7.7); Hematocrit 33 % (35-47); Hemoglobin 10.5 g/dL (12.0-16.0); Lymphocyte % 6.4 %; Mean Corpuscular HGB Conc 32 g/dL (31-36); Mean Corpuscular Hemoglobin 27 pg (27-31); Mean Corpuscular Volume 84 fL (80-97); Platelet Count 351 10^3/uL (150-450); Red Blood Count 3.92 10^6 /uL (3.70-4.87); Red Cell Distribution Width 18 % (10.5-15); White Blood Count 12.8 10^3/uL (3.5-10.8)
[2018-07-09 05:56] LABS: BUN/Creatinine Ratio 30.4 (8-20); Calcium 8.6 mg/dL (8.6-10.3); EGFR African American 55.4 (>60); EGFR Non-African American 45.8 (>60); Potassium 3.9 mmol/L (3.5-5.0)
[2018-07-09] MEDS: Tiotropium CAP.INH* CAP.INH/18 MCG (USE ORDER SET !) INH SCH (07:54)
[2018-07-09] MEDS: FORMOTE INH SCH (07:56)
[2018-07-09] MEDS: MDI INH SCH (07:56)
[2018-07-09] MEDS: BUDESONIDE INH SCH (07:56)
[2018-07-09] MEDS: DULoxetine DR CAP* 20 MG CAP.DR PO SCH (09:13)
[2018-07-09] MEDS: Losartan TAB* 25 MG PO SCH (09:14)
[2018-07-09] MEDS: predniSONE TAB* 20 MG PO SCH (09:14)
[2018-07-09] MEDS: Methocarbamol TAB* 500 MG PO SCH ×3 (09:15→20:51)
[2018-07-09] MEDS: Gabapentin CAP(*) 300 MG PO SCH ×3 (09:16→20:50)
[2018-07-09] MEDS: Pantoprazole TAB * 40 MG TAB PO SCH ×2 (09:16→20:51)
[2018-07-09] MEDS: Metoprolol Succinate XL TAB* 50 MG PO SCH (09:16)
[2018-07-09] MEDS: Aspirin EC TAB* 81 MG TAB.EC PO SCH (09:16)
[2018-07-09] MEDS: Conjugated Estrogens TAB* 0.3 MG TAB PO SCH (09:17)
[2018-07-09] MEDS: Polyethylene Glycol 3350* 17 GM PACKET PO SCH (12:08)
[2018-07-09] MEDS: Mometasone/Formoter 200/5 MDI INH SCH ×2 (12:09→19:28)
[2018-07-09] MEDS ORDERED: cefTRIAXone(*) 1 GM in NS 0.9% 50 ML* 50 ML IVPB SCH (13:00)
[2018-07-09] MEDS ORDERED: Azithromycin 500 mg/250 ml NS 500 MG/250 ML BAG IVPB SCH (14:00)
--- NOTE | 2018-07-09 15:23 | PN ---
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 She is feeling much better, back to baseline. Would like to go home, we review the events of her presentation and she think she aspirated earlier before coming to urgent care, she has hx of aspiratin PNA as well, denies cough or SOB, CP GI or MSK complaints Objective Active Medications: Albuterol (Ventolin 2.5 Mg/3 Ml Neb.Rosana*) 2.5 mg INH [id number] AWAKE PRN PRN Reason: SOB/WHEEZING Alprazolam (Xanax Tab*) 0.25 mg PO Q8HR PRN PRN Reason: ANXIETY Aspirin (Aspirin Ec Tab*) 81 mg PO DAILY [facility] Last Admin: 07/09/18 09:16 Dose: 81 mg Atorvastatin Calcium (Lipitor*) 20 mg PO QPM [facility] Last Admin: 07/08/18 17:42 Dose: 20 mg Duloxetine HCl (Cymbalta Cap*) 20 mg PO DAILY [facility] Last Admin: 07/09/18 09:13 Dose: 20 mg Estrogens Conjugated (Premarin Tab*) 0.3 mg PO DAILY [facility] Last Admin: 07/09/18 09:17 Dose: 0.3 mg Gabapentin (Neurontin Cap(*)) 600 mg PO 0900,1400 [facility] Last Admin: 07/09/18 13:15 Dose: 600 mg Gabapentin (Neurontin Cap(*)) 900 mg PO BEDTIME [facility] Last Admin: 07/08/18 21:05 Dose: 900 mg Heparin Sodium (Porcine) (Heparin Vial(*)) 5,000 units SUBCUT Q8HR [facility] Last Admin: 07/09/18 13:21 Dose: 5,000 units Azithromycin (Zithromax 500 Mg/250 Ml) 500 mg in 250 mls @ 250 mls/hr IVPB Q24H [facility] Last Admin: 07/09/18 13:12 Dose: 250 mls/hr Ceftriaxone Sodium 1 gm/ (Sodium Chloride) 50 mls @ 200 mls/hr IVPB Q24H [facility] Last Admin: 07/09/18 12:20 Dose: 200 mls/hr Levothyroxine Sodium (Synthroid Tab*) 50 mcg PO DAILY@0600 [facility] Last Admin: 07/09/18 05:23 Dose: 50 mcg Losartan Potassium (Cozaar Tab*) 100 mg PO DAILY [facility] Last Admin: 07/09/18 09:14 Dose: 100 mg Melatonin (Melatonin) 3 mg PO BEDTIME PRN PRN Reason: INSOMNIA Methocarbamol (Robaxin Tab*) 500 mg PO TID [facility] Last Admin: 07/09/18 13:14 Dose: 500 mg Metoprolol Succinate (Toprol Xl Tab*) 50 mg PO DAILY [facility] Last Admin: 07/09/18 09:16 Dose: 50 mg Mometasone Furoate/Formoterol Fumar (Dulera 200/5 Mdi*) 2 puff INH BID [facility]; Protocol Last Admin: 07/09/18 12:09 Dose: Not Given Ondansetron HCl (Zofran Inj*) 4 mg IV Q6H PRN PRN Reason: NAUSEA Oxycodone HCl (Roxycodone Tab*) 5 mg PO Q4H PRN PRN Reason: PAIN Pantoprazole Sodium (Protonix Tab*) 40 mg PO BID [facility] Last Admin: 07/09/18 09:16 Dose: 40 mg Polyethylene Glycol/Electrolytes (Miralax*) 17 gm PO DAILY [facility] Last Admin: 07/09/18 12:08 Dose: 17 gm Prednisone (Deltasone Tab*) 40 mg PO DAILY [facility] Last Admin: 07/09/18 09:14 Dose: 40 mg Temazepam (Restoril Cap*) 15 mg PO BEDTIME PRN PRN Reason: SLEEP Last Admin: 07/08/18 21:11 Dose: 15 mg Tiotropium [place] (Spiriva Cap.Inh*) 1 cap INH DAILY [facility] Last Admin: 07/09/18 07:54 Dose: 1 cap Vital Signs - 8 hr 07/09/18 07/09/18 07/09/18 07:57 08:00 08:48 Temperature 97.8 F Pulse Rate 77 77 Respiratory 14 16 16 Rate Blood Pressure 135/58 (mmHg) O2 Sat by Pulse 98 98 100 Oximetry 07/09/18 07/09/18 07/09/18 08:53 09:15 09:16 Temperature 97.8 F Pulse Rate 77 Respiratory 16 16 16 Rate Blood Pressure 135/58 (mmHg) O2 Sat by Pulse 100 Oximetry 07/09/18 07/09/18 13:14 13:15 Temperature Pulse Rate Respiratory 16 16 Rate Blood Pressure (mmHg) O2 Sat by Pulse Oximetry Oxygen Devices in Use Now: None Appearance: Pleasant woman in NAD Eyes: No Scleral Icterus, PERRLA Ears/Nose/Mouth/Throat: NL Teeth, Lips, Gums, Clear Oropharnyx Neck: NL Appearance and Movements; NL JVP, Trachea Midline Respiratory: Symmetrical Chest Expansion and Respiratory Effort, - - Crackles in LL Base Cardiovascular: NL Sounds; No Murmurs; No JVD, RRR Abdominal: NL Sounds; No Tenderness; No Distention, No Hepatosplenomegaly Lymphatic: No Cervical Adenopathy, No Axillary Adenopathy Extremities: No Edema Skin: No Rash or Ulcers Neurological: Alert and Oriented x 3 Result Diagrams: 07/09/18 05:23 07/09/18 05:23 Additional Lab and Data: Laboratory Tests 07/08/18 07/08/18 07/08/18 10:30 10:34 10:34 INR (Anticoag Therapy) 0.91 APTT 27.6 Glucose 130 H POC Glucose (mg/dL) 171 H Lactic Acid Calcium 9.2 Troponin I 0.00 Total Protein 7.1 07/08/18 10:34 INR (Anticoag Therapy) APTT Glucose POC Glucose (mg/dL) Lactic Acid 1.1 Calcium Troponin I Total Protein Microbiology and Other Data: Microbiology 07/09/18 04:12 Legionella Urinary Antigen - Final Urine Negative Legionella Antigen Streptococcus pneumoniae Ag Screen - Final Negative S. 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 Strongle consider aspiration pneumonia vs pneumonitis - Continue course of ceftriaxone and azithromycin Day 2/ __ on 07/09 - Supplemental O2 necessary (2) COPD (chronic obstructive pulmonary disease) Current Visit: No Status: Acute Priority: Medium Code(s): J44.9 - CHRONIC OBSTRUCTIVE PULMONARY DISEASE, UNSPECIFIED SNOMED Code(s): 79607978 Comment: - Tripe inhaler therapy: LAMA, ICS, BALJIT - Oral pred 40 daily Day 2/ 5 on 07/09 (3) TIA (transient ischemic attack) Current Visit: Yes Status: Acute Priority: Medium Code(s): G45.9 - TRANSIENT CEREBRAL ISCHEMIC ATTACK, UNSPECIFIED SNOMED Code(s): 101331190 Comment: - Stroke/TIA symptoms were resolved when evaluated in ER, other than LT leg weakness that is likely related to sciatica/disc disease - Will monitor, start aspirin. - MRI planned assess for stroke, unlikely though given pts similar presentation in the past with syncope (4) HTN (hypertension) Current Visit: No Status: Acute Code(s): I10 - ESSENTIAL (PRIMARY) HYPERTENSION SNOMED Code(s): 37486265 Comment: - Home Metoprolol and Losartan (5) Hypothyroid Current Visit: No Status: Acute Code(s): E03.9 - HYPOTHYROIDISM, UNSPECIFIED SNOMED Code(s): 67334077 Comment: - Continue levothyroxine. (6) Chronic pain Current Visit: No Status: Chronic Priority: Medium Code(s): G89.29 - OTHER CHRONIC PAIN SNOMED Code(s): 94835082 Comment: - With fibromyalgia. - Continue Cymbalta, gabapentin, and prn oxycodone, sig polypharmacy at this age (7) Depression Current Visit: No Status: Chronic Priority: Medium Code(s): F32.9 - MAJOR DEPRESSIVE DISORDER, SINGLE EPISODE, UNSPECIFIED SNOMED Code(s): 67487272 Comment: - Stable- continue cymbalta. Xanax available for anxiety as well. (8) DVT prophylaxis Current Visit: No Status: Acute Priority: Low Code(s): XXU5374 - SNOMED Code(s): 499374754 Comment: - Heparin SQ. (9) DNR (do not resuscitate) Current Visit: No Status: Acute Comment: Status and Disposition: inpatient, d/c as able
[2018-07-09] MEDS: Atorvastatin* 20 MG TAB PO SCH (18:00)
[2018-07-09] MEDS: Temazepam CAP* 15 MG PO PRN (22:29)
[2018-07-10 05:56] LABS: ABS Monocytes 1.3 10^3/ul (0-0.8); Hematocrit 31 % (35-47); Hemoglobin 10.1 g/dL (12.0-16.0); Mean Corpuscular HGB Conc 33 g/dL (31-36); Mean Corpuscular Hemoglobin 27 pg (27-31); Mean Corpuscular Volume 83 fL (80-97); Mean Platelet Volume 7.9 fL (7.4-10.4); Platelet Count 356 10^3/uL (150-450); Red Blood Count 3.77 10^6 /uL (3.70-4.87); Red Cell Distribution Width 18 % (10.5-15); White Blood Count 14.4 10^3/uL (3.5-10.8)
[2018-07-10 06:05] LABS: Calcium 8.7 mg/dL (8.6-10.3); Potassium 3.9 mmol/L (3.5-5.0)
[2018-07-10 06:11] LABS: BUN/Creatinine Ratio 36.3 (8-20); EGFR African American 72.5 (>60); EGFR Non-African American 59.9 (>60)
[2018-07-10] MEDS: Heparin VIAL(*) 5000 UNITS/ML VIAL (FIVE THOUSAND) SUBCUT SCH (06:24)
[2018-07-10] MEDS: Levothyroxine TAB* 50 MCG TAB PO SCH (06:25)
--- NOTE | 2018-07-10 07:32 | PN ---
Subjective Date of Service: 07/10/18 Interval History: HD #3 on 07/10 77 yo F with PMH COPD on home O2, chronic pain, depression and anxiety, on intermodal customer service opiates and benzos, hypothyroid, HTN who presented with weakness, and syncope in setting of PNA, possible TIA sx in EMS that resolved by admission Overnight no acute events, VSS Labs: Leukocytosis stable, Imagign: MRI neg This morning feels much better, mild cough, has not needed oxygen, we again discuss possible mechanism, frequent aspirative events, she is willing ot think about swallow study in future. NoCP SOB, no GI or compalints Objective Active Medications: Albuterol (Ventolin 2.5 Mg/3 Ml Neb.Rosana*) 2.5 mg INH [id number] AWAKE PRN PRN Reason: SOB/WHEEZING Alprazolam (Xanax Tab*) 0.25 mg PO Q8HR PRN PRN Reason: ANXIETY Aspirin (Aspirin Ec Tab*) 81 mg PO DAILY [facility] Last Admin: 07/09/18 09:16 Dose: 81 mg Atorvastatin Calcium (Lipitor*) 20 mg PO QPM [facility] Last Admin: 07/09/18 18:00 Dose: 20 mg Duloxetine HCl (Cymbalta Cap*) 20 mg PO DAILY [facility] Last Admin: 07/09/18 09:13 Dose: 20 mg Estrogens Conjugated (Premarin Tab*) 0.3 mg PO DAILY [facility] Last Admin: 07/09/18 09:17 Dose: 0.3 mg Gabapentin (Neurontin Cap(*)) 600 mg PO 0900,1400 [facility] Last Admin: 07/09/18 13:15 Dose: 600 mg Gabapentin (Neurontin Cap(*)) 900 mg PO BEDTIME [facility] Last Admin: 07/09/18 20:50 Dose: 900 mg Heparin Sodium (Porcine) (Heparin Vial(*)) 5,000 units SUBCUT Q8HR [facility] Last Admin: 07/10/18 06:24 Dose: 5,000 units Azithromycin (Zithromax 500 Mg/250 Ml) 500 mg in 250 mls @ 250 mls/hr IVPB Q24H [facility] Last Admin: 07/09/18 13:12 Dose: 250 mls/hr Ceftriaxone Sodium 1 gm/ (Sodium Chloride) 50 mls @ 200 mls/hr IVPB Q24H [facility] Last Admin: 07/09/18 12:20 Dose: 200 mls/hr Levothyroxine Sodium (Synthroid Tab*) 50 mcg PO DAILY@0600 [facility] Last Admin: 07/10/18 06:25 Dose: 50 mcg Losartan Potassium (Cozaar Tab*) 100 mg PO DAILY [facility] Last Admin: 07/09/18 09:14 Dose: 100 mg Melatonin (Melatonin) 3 mg PO BEDTIME PRN PRN Reason: INSOMNIA Methocarbamol (Robaxin Tab*) 500 mg PO TID [facility] Last Admin: 07/09/18 20:51 Dose: 500 mg Metoprolol Succinate (Toprol Xl Tab*) 50 mg PO DAILY [facility] Last Admin: 07/09/18 09:16 Dose: 50 mg Mometasone Furoate/Formoterol Fumar (Dulera 200/5 Mdi*) 2 puff INH BID [facility]; Protocol Last Admin: 07/09/18 19:28 Dose: 2 puff Ondansetron HCl (Zofran Inj*) 4 mg IV Q6H PRN PRN Reason: NAUSEA Oxycodone HCl (Roxycodone Tab*) 5 mg PO Q4H PRN PRN Reason: PAIN Pantoprazole Sodium (Protonix Tab*) 40 mg PO BID [facility] Last Admin: 07/09/18 20:51 Dose: 40 mg Polyethylene Glycol/Electrolytes (Miralax*) 17 gm PO DAILY [facility] Last Admin: 07/09/18 12:08 Dose: 17 gm Prednisone (Deltasone Tab*) 40 mg PO DAILY [facility] Last Admin: 07/09/18 09:14 Dose: 40 mg Temazepam (Restoril Cap*) 15 mg PO BEDTIME PRN PRN Reason: SLEEP Last Admin: 07/09/18 22:29 Dose: 15 mg Tiotropium Volin (Spiriva Cap.Inh*) 1 cap INH DAILY [facility] Last Admin: 07/09/18 07:54 Dose: 1 cap Vital Signs - 8 hr 07/09/18 07/10/18 07/10/18 23:35 00:00 03:45 Temperature 97.2 F 97.4 F Pulse Rate 73 70 Respiratory 16 16 Rate Blood Pressure 105/81 151/51 (mmHg) O2 Sat by Pulse 95 95 96 Oximetry Oxygen Devices in Use Now: None Appearance: Pleasant woman in NAD Eyes: No Scleral Icterus Ears/Nose/Mouth/Throat: NL Teeth, Lips, Gums Neck: NL Appearance and Movements; NL JVP Respiratory: Symmetrical Chest Expansion and Respiratory Effort, - - Crackles to LLL Cardiovascular: NL Sounds; No Murmurs; No JVD, RRR Abdominal: NL Sounds; No Tenderness; No Distention, No Hepatosplenomegaly Lymphatic: No Cervical Adenopathy Extremities: No Edema Skin: No Rash or Ulcers Neurological: Alert and Oriented x 3 Result Diagrams: 07/10/18 05:48 07/10/18 05:48 Additional Lab and Data: Laboratory Tests 07/08/18 07/08/18 07/08/18 10:30 10:34 10:34 INR (Anticoag Therapy) 0.91 APTT 27.6 Glucose 130 H POC Glucose (mg/dL) 171 H Lactic Acid Calcium 9.2 Troponin I 0.00 Total Protein 7.1 07/08/18 10:34 INR (Anticoag Therapy) APTT Glucose POC Glucose (mg/dL) Lactic Acid 1.1 Calcium Troponin I Total Protein Microbiology and Other Data: Microbiology 07/09/18 04:12 Legionella Urinary Antigen - Final Urine Negative Legionella Antigen Streptococcus pneumoniae Ag Screen - Final Negative S. pneumo Antigen Diagnostic Imaging: CXR: RT side patchy infiltrate, LT basilar infiltrate Head CT: LT basal ganglia lacune, old, no new stroke/hemorrhage EKG Data: Normal sinus rhythm, normal axis, ST depression V4-6, unchanged from 03/03 Assess/Plan/Problems-Billing Assessment: 77 yo F with PMH COPD on home O2, chronic pain, depression and anxiety, on residential opiates and benzos, hypothyroid, HTN who presented with weakness, and syncope in setting of PNA, initially concerned for TIA htough most likely just post syncopal - Patient Problems (1) Pneumonia Current Visit: Yes Status: Acute Priority: High Code(s): J18.9 - PNEUMONIA , UNSPECIFIED ORGANISM SNOMED Code(s): 026925992 Comment: - Negative for influenza, legionella, pneumococcal Ag. Strongle consider aspiration pneumonia vs pneumonitis - Continue course of ceftriaxone and azithromycin Day 3/ __ on 07/09, will d/c on Augmentin total of 7 days - Supplemental O2 necessary (2) COPD (chronic obstructive pulmonary disease) Current Visit: No Status: Acute Priority: Medium Code(s): J44.9 - CHRONIC OBSTRUCTIVE PULMONARY DISEASE, UNSPECIFIED SNOMED Code(s): 65053848 Comment: - Tripe inhaler therapy: LAMA, ICS, BALJIT - Oral pred 40 daily Day / 5 on 07/10 (3) TIA (transient ischemic attack) Current Visit: Yes Status: Acute Priority: Medium Code(s): G45.9 - TRANSIENT CEREBRAL ISCHEMIC ATTACK, UNSPECIFIED SNOMED Code(s): 119824484 Comment: - Stroke/TIA symptoms were resolved when evaluated in ER, other than LT leg weakness that is likely related to sciatica/disc disease - MRI neg, most likely syncopal event (4) HTN (hypertension) Current Visit: No Status: Acute Code(s): I10 - ESSENTIAL (PRIMARY) HYPERTENSION SNOMED Code(s): 62395695 Comment: - Home Metoprolol and Losartan (5) Hypothyroid Current Visit: No Status: Acute Code(s): E03.9 - HYPOTHYROIDISM, UNSPECIFIED SNOMED Code(s): 34295779 Comment: - Continue levothyroxine. (6) Chronic pain Current Visit: No Status: Chronic Priority: Medium Code(s): G89.29 - OTHER CHRONIC PAIN SNOMED Code(s): 81487079 Comment: - With fibromyalgia. - Continue Cymbalta, gabapentin, and prn oxycodone, sig polypharmacy at this age (7) Depression Current Visit: No Status: Chronic Priority: Medium Code(s): F32.9 - MAJOR DEPRESSIVE DISORDER, SINGLE EPISODE, UNSPECIFIED SNOMED Code(s): 26091507 Comment: - Stable- continue cymbalta. Xanax available for anxiety as well. (8) DVT prophylaxis Current Visit: No Status: Acute Priority: Low Code(s): MGU4350 - SNOMED Code(s): 172865991 Comment: - Heparin SQ. (9) DNR (do not resuscitate) Current Visit: No Status: Acute Comment: Status and Disposition: d[facility]c [facility]
[2018-07-10] MEDS: Tiotropium CAP.INH* CAP.INH/18 MCG (USE ORDER SET !) INH SCH (07:49)
[2018-07-10] MEDS: Mometasone/Formoter 200/5 MDI INH SCH (07:49)
[2018-07-10] MEDS: Conjugated Estrogens TAB* 0.3 MG TAB PO SCH (08:38)
[2018-07-10] MEDS: Losartan TAB* 25 MG PO SCH (08:39)
[2018-07-10] MEDS: Pantoprazole TAB * 40 MG TAB PO SCH (08:40)
[2018-07-10] MEDS: Metoprolol Succinate XL TAB* 50 MG PO SCH (08:40)
[2018-07-10] MEDS: Methocarbamol TAB* 500 MG PO SCH (08:40)
[2018-07-10] MEDS: DULoxetine DR CAP* 20 MG CAP.DR PO SCH (08:41)
[2018-07-10] MEDS: Gabapentin CAP(*) 300 MG PO SCH (08:41)
[2018-07-10] MEDS: predniSONE TAB* 20 MG PO SCH (08:41)
[2018-07-10] MEDS: Aspirin EC TAB* 81 MG TAB.EC PO SCH (08:43)
[2018-07-10] MEDS: Polyethylene Glycol 3350* 17 GM PACKET PO SCH (08:43)
[2018-07-10] MEDS ORDERED: Azithromycin 500 mg/250 ml NS 500 MG/250 ML BAG IVPB SCH (11:00)
[2018-07-10] MEDS ORDERED: cefTRIAXone(*) 1 GM in NS 0.9% 50 ML* 50 ML IVPB SCH (12:00)
[2018-07-10 12:06] VITALS: BP 139/61
--- NOTE | 2018-07-10 17:52 | DS ---
CC: Triny Small MD. DISCHARGE SUMMARY: DATE OF ADMISSION: 07/08/18. DATE OF DISCHARGE: 07/10/18. PRIMARY CARE PROVIDER: Triny Small MD. DISPOSITION: Discharge to home stable. PRIMARY DIAGNOSES: 1. Pneumonia. 2. Syncope. SECONDARY DIAGNOSES: 1. Chronic obstructive pulmonary disease on p.r.n. home oxygen. 2. Chronic pain. 3. Fibromyalgia, on long-term opioids and benzodiazepines. 4. Depression and anxiety. 5. Hypothyroidism. 6. Hypertension. MEDICATIONS ON DISCHARGE: 1. Augmentin 875 p.o. b.i.d. for an additional 5 days status post discharge. 2. Prednisone 40 mg p.o. daily for an additional 3 days status post discharge. 3. Alprazolam 0.25 mg p.o. q.8 hours p.r.n. for anxiety. 4. Atorvastatin 20 mg p.o. daily. 5. Symbicort 2 puffs inhaled b.i.d. 6. Duloxetine 20 mg daily. 7. Estrogen 0.3 mg p.o. daily. 8. Gabapentin 600 mg p.o. q.a.m. midday and 900 mg p.o. q.h.s. 9. Irbesartan 300 mg p.o. daily. 10. Levothyroxine 50 mcg p.o. q.a.m. 11. Methocarbamol 500 mg p.o. t.i.d. 12. Metoprolol succinate 50 mg p.o. daily. 13. Omeprazole 20 mg p.o. b.i.d. 14. Oxycodone 5 mg p.o. q.4 hours p.r.n. for pain. 15. Polyethylene glycol 17 g p.o. daily. 16. Temazepam 50 mg p.o. q.h.s. 17. Spiriva 1 cap inhaled daily. 18. Calcium carbonate vitamin D3 one tab p.o. daily. 19. Multivitamin 1 tab p.o. daily. Medication changes during this hospitalization include the addition of Augmentin for 5 days status post discharge and prednisone for 3 days status post discharge. HISTORY OF PRESENT ILLNESS AND HOSPITAL COURSE: This is a 77-year-old female with above past medical history, who presented to the emergency room on from urgent care, where she had presented initially with cough and vomiting. She is unsure whether she was vomiting or cough to the point of vomiting, but she did see streaks of what she thought was her prior food in the sputum. The patient has had multiple pneumonias in the past, largely in the setting of vomiting and concern for aspirative events. She reports that foods that seem to trigger this are dense solids, although she has not been motivated to change her diet. In urgent care, they found that she had crackles and she had a dose of Solu-Medrol with an albuterol nebulizer, but she then had acute syncopal event while at urgent care. She was transported to the ER via EMS and while on transfer the ambulance crew noted some slurred speech when she came to. When the was questioned about this in the emergency room, he thought prior to that she had intermittent slurred speech. The patient was evaluated for a stroke, given acute neurologic symptoms, but no intervention was advised via telestroke. The hospitalist team was asked to admit the patient for presumed left-sided pneumonia and possible TIA. In the emergency room, also was noted that the chest x-ray showed bilateral bibasilar infiltrates. HOSPITAL COURSE BY PROBLEM LIST: 1. Pneumonia. The patient did have chest x-ray with bibasilar infiltrates, leukocytosis on admission to 18.8, although had received Solu-Medrol and the patient was with cough, initially requiring 2 L nasal cannula to maintain oxygen saturation in the 95%. She was started on ceftriaxone and azithromycin for presumed community-acquired pneumonia although on further HPI on hospital day 2, the patient reports an aspirative event and numerous aspirative events in the past. Discussion with the patient about doing formal swallow study was had, although she refused while in the hospital and said would discuss further as an outpatient. Furthermore, she reports that if a swallow study did find that she had difficulty with her swallowing mechanism, she would be unwilling to change her diet to accommodate swallowing findings. By hospital day 2, she had no oxygen requirements. She was able to ambulate without desaturating, but still had left lower crackles on exam, but certainly improving and feeling back to her baseline. She will be discharged on Augmentin to cover aspiration pneumonia for a total of 7 days, additional 5 days status post discharge and counseled followup with primary care provider to discuss necessity of formal swallow eval moving forward. 2. Stroke like/syncopal symptoms. Her symptoms are seen most consistent with postsyncopal confusion, although an MRI was done, which showed no acute restrictive pattern to suggest the TIA. She has a history of orthostatic hypotension and vasovagal events in the past and most likely her symptoms are represented by this, given the reassuring neurologic workup with negative MRI, negative head CT and no residual neurologic deficits. 3. COPD. The patient has COPD at baseline with p.r.n. oxygen. She is already optimized on triple inhaler therapy with Spiriva, Symbicort and p.r.n albuterol at home, she would continue. Furthermore, she was started on oral prednisone for short burst 40 mg daily for a total of 5 days. She will be discharged on 2 additional days of prednisone for any COPD exacerbation component. 4. Hypertension. She was continued on home medications with good control. 5. Hypothyroidism. She was continued on home levothyroxine. 6. Chronic pain. The patient has fibromyalgia and significant pain regimen with Cymbalta, gabapentin, p.r.n. oxycodone, muscle relaxers, and temazepam. These were continued without complication inhouse. 7. Depression. We will continue her Cymbalta furthermore with significant anxiety and she has p.r.n. Xanax. On the day of discharge, the patient is ambulating tolerating diet and voiding freely. She feels back to her baseline. She has mild cough that is amenable to treatment with over the counter. She is educated about possible aspiration driving these frequent recurrent pneumonias and she reports she will continue to discuss with outpatient primary care provider and does not want any behavior modifications at this time. DATA OBTAINED DURING THIS HOSPITALIZATION: Labs on the day of discharge: White blood cell count of 14.4, hemoglobin of 10.1, hematocrit 31, platelets of 356. CBC shows sodium of 140, potassium of 3.9, chloride of 115, carbon dioxide of 20, BUN of 33, and creatinine 0.91. Influenza testing was negative. Urigen legionella and streptococcal antigens are negative. Imaging done during this hospitalizations included: Chest x-ray on 07/08/18, which shows bilobar patchy alveolar consolidation in the right lung and consolidation in the left lung base. Otherwise, clear pleural spaces with mild cardiomegaly. 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 MRI was done on 07/09/18, which showed stable nonspecific white matter changes and no restrictive diffusion to suggest an acute infarct. EKG was done on 07/08/18 which shows normal sinus rhythm with no signs of acute ischemia. PHYSICAL EXAM ON DAY OF DISCHARGE: This is a well-appearing woman in no acute distress, ambulating in the house A and O x4. Lungs with left lower base crackles. Cardiac Regular rate and rhythm. No murmurs, rubs, or gallops. Belly is soft, nontender, nondistended with normoactive bowel sounds. Extremities: Without edema. ITEMS TO FOLLOWUP ON STATUS POST DISCHARGE: 1. Frequent pneumonias. The patient reports frequent aspirative events in the setting of difficulty swallowing some foods. We did offer a swallow study and she declined while in the hospital. She wants to further the conversation with her outpatient primary care provider, although she does report that she would not be willing to make any dietary modifications in the event swallow study did show that she had dysphagia to solids, liquids or any other complications. Continue to discuss barium swallow as the patient tolerates. Will need to complete a total of 7 days of Augmentin. 2. Chronic obstructive pulmonary disease, possible exacerbation in the setting of this aspiration pneumonia versus pneumonitis. Continue prednisone for a total of 5 days. 3. Syncope, has had significant syncopal events in the past mostly consistent with vasovagal and hypotension. Some significant workup and continued consultation on polypharmacy that may be contributing to these frequent syncopal events. TIME SPENT: Forty minutes was spent in the planning of this discharge with over half of that was spent directly at the bedside of the patient providing direct patient care. Plan of care was discussed with the patient and her . They have no further questions, they feel that she is stable to return to home, feel that she is at her baseline. They understand to return to the hospital if there were any new symptoms including fevers, chills, shortness of breath, chest pain , new GI or complaints. Follow up will be arranged by the primary care provider within 1 to 2 weeks for hospital followup to determine further improvement of her presumed aspirative pneumonia versus chemical pneumonitis. If there are any questions about the care of this patient during this hospitalization, please do not hesitate to reach out and contact us. [id number]/[facility] #: [id number] [facility]PITALFranki
== END 2018-07-10 13:30 | disposition home or self-care (01) | DRG 178 ==
LOC: ED 10:01 → MEDTELE 12:38
PROVIDERS: ADMIT Internal Medicine; ATTEND Internal Medicine
DX: J69.0 Pneumonitis due to inhalation of food and vomit (principal); F33.9 Major depressive disorder, recurrent, unspecified; J44.1 Chronic obstructive pulmonary disease with (acute) exacerbation; G45.9 Transient cerebral ischemic attack, unspecified; J44.9 Chronic obstructive pulmonary disease, unspecified; G62.9 Polyneuropathy, unspecified; Z99.81 Dependence on supplemental oxygen; G89.29 Other chronic pain; Z66 Do not resuscitate; M79.7 Fibromyalgia; F41.9 Anxiety disorder, unspecified; E03.9 Hypothyroidism, unspecified; I10 Essential (primary) hypertension; I95.1 Orthostatic hypotension; M51.26 Other intervertebral disc displacement, lumbar region; E78.5 Hyperlipidemia, unspecified; K21.9 Gastro-esophageal reflux disease without esophagitis; K44.9 Diaphragmatic hernia without obstruction or gangrene; Z82.49 Family history of ischemic heart disease and other diseases of the circulatory system; Z87.891 Personal history of nicotine dependence; Z79.890 Hormone replacement therapy; Z79.891 Long term (current) use of opiate analgesic; Z79.51 Long term (current) use of inhaled steroids; Z79.899 Other long term (current) drug therapy
CPT/HCPCS: 36415; 70450; 70551; 71045; 80048; 80053; 80061; 83605; 84484; 85025; 85610; 85730; 86850; 86900; 86901; 87899; 93005; 94640; 99284; A9270-GY; J0456; J0696; J1644; J7512

== ENCOUNTER 2019-08-30 10:54 | Observation (INO) ==
[2019-08-30] MEDS ORDERED: NS 0.9% 1000 ml BAG 1,000 ML IV ONE (11:13)
[2019-08-30 11:53] LABS: ABS Basophils 0.1 10^3/ul (0-0.2); ABS Eosinophils 0.5 10^3/ul (0-0.6); ABS Lymphocytes 1.8 10^3/ul (1.0-4.8); ABS Monocytes 1.3 10^3/ul (0-0.8); ABS Neutrophils 9.1 10^3/ul (1.5-7.7); Eosinophil % 4.2 %; Hematocrit 32 % (35-47); Hemoglobin 10.5 g/dL (12.0-16.0); Mean Corpuscular HGB Conc 33 g/dL (31-36); Mean Corpuscular Hemoglobin 27 pg (27-31); Mean Corpuscular Volume 84 fL (80-97); Mean Platelet Volume 7.8 fL (7.4-10.4); Platelet Count 322 10^3/uL (150-450); Red Blood Count 3.82 10^6 /uL (3.70-4.87); Red Cell Distribution Width 18 % (10-15); White Blood Count 12.7 10^3/uL (3.5-10.8)
[2019-08-30 11:59] LABS: INR 0.91 (0.82-1.09)
[2019-08-30 12:27] LABS: Albumin 3.6 g/dL (3.2-5.2); Albumin/Globulin Ratio 1.3 (1-3); BUN/Creatinine Ratio 28.1 (8-20); C Reactive Protein 10.17 mg/L (<8.01); Calcium 9.2 mg/dL (8.6-10.3); EGFR African American 45.8 (>60); EGFR Non-African American 37.8 (>60); Globulin 2.7 g/dL (2-4); Magnesium 2.1 mg/dL (1.9-2.7); Potassium 3.8 mmol/L (3.5-5.0); Total Bilirubin 0.2 mg/dL (0.2-1.0); Total Protein 6.3 g/dL (6.4-8.9)
[2019-08-30] MEDS ORDERED: Iodixanol (CONTRAST) 320 MG/ML 100 ML SDV IV ONE (12:51)
[2019-08-30 13:17] LABS: TSH Ultra Thyroid Stim Horm 6.47 mcIU/mL (0.34-5.60)
[2019-08-30 14:12] LABS: Urine Appearance Clear; Urine Bilirubin Negative (Negative); Urine Blood Negative (Negative); Urine Color Yellow; Urine Glucose Negative (Negative); Urine Ketones Negative (Negative); Urine Nitrite Negative (Negative); Urine Protein Negative (Negative); Urine Urobilinogen Negative (Negative)
[2019-08-30] MEDS ORDERED: NS 0.9% 1000 ml BAG 1,000 ML IV SCH (16:30)
[2019-08-30] MEDS ORDERED: Albuterol/Ipratropium NEB.SOL (2.5/0.5 MG) 3 ML NEB.SOLN INH PRN (16:44)
[2019-08-30] MEDS ORDERED: Enoxaparin 40 MG/0.4 ML SYR SUBCUT SCH (17:00)
[2019-08-30 17:17] LABS: Free T4 0.77 ng/dL (0.61-1.12)
[2019-08-31 05:43] LABS: ABS Lymphocytes 0.8 10^3/ul (1.0-4.8); ABS Monocytes 0.1 10^3/ul (0-0.8); ABS Neutrophils 5.7 10^3/ul (1.5-7.7); Hematocrit 32 % (35-47); Hemoglobin 10.6 g/dL (12.0-16.0); Lymphocyte % 12.7 %; Mean Corpuscular HGB Conc 34 g/dL (31-36); Mean Corpuscular Hemoglobin 28 pg (27-31); Mean Corpuscular Volume 84 fL (80-97); Mean Platelet Volume 7.8 fL (7.4-10.4); Platelet Count 295 10^3/uL (150-450); Red Blood Count 3.77 10^6 /uL (3.70-4.87); Red Cell Distribution Width 17 % (10-15); White Blood Count 6.6 10^3/uL (3.5-10.8)
[2019-08-31 06:00] LABS: BUN/Creatinine Ratio 30.7 (8-20); Calcium 8.6 mg/dL (8.6-10.3); Potassium 4.2 mmol/L (3.5-5.0)
[2019-08-31 08:52] VITALS: BP 143/62
[2019-08-31] MEDS ORDERED: Polyethylene Glycol 3350 17 GM PACKET PO SCH (09:00)
[2019-08-31] MEDS ORDERED: DULoxetine DR 20 mg CAP PO SCH (09:00)
[2019-08-31] MEDS ORDERED: SPIRIVA Respimat (tiotropium) 2.5 mcg/inh Inhaler INH SCH (09:00)
== END 2019-08-31 12:45 | disposition home or self-care (01) ==
LOC: MEDTELE 10:54 → ED 10:54 → MEDTELE 17:52
PROVIDERS: ADMIT Internal Medicine; ATTEND Internal Medicine

== ENCOUNTER 2020-04-09 14:52 | Observation (INO) ==
[2020-04-09 16:36] LABS: Influenza A Molecular Negative (Negative); Influenza B Molecular Negative (Negative)
[2020-04-09 16:53] LABS: ABS Basophils 0.1 10^3/ul (0-0.2); ABS Eosinophils 0.3 10^3/ul (0-0.6); ABS Lymphocytes 1.6 10^3/ul (1.0-4.8); ABS Monocytes 1.2 10^3/ul (0-0.8); ABS Neutrophils 6.2 10^3/ul (1.5-7.7); Eosinophil % 3.5 %; Hematocrit 31 % (35-47); Hemoglobin 10.3 g/dL (12.0-16.0); Lymphocyte % 17.1 %; Mean Corpuscular HGB Conc 33 g/dL (31-36); Mean Corpuscular Hemoglobin 29 pg (27-31); Mean Corpuscular Volume 88 fL (80-97); Platelet Count 373 10^3/uL (150-450); Red Blood Count 3.53 10^6 /uL (3.70-4.87); Red Cell Distribution Width 16 % (10-15); White Blood Count 9.4 10^3/uL (3.5-10.8)
[2020-04-09 17:13] LABS: Troponin I 0.01 ng/mL (<0.03)
[2020-04-09 17:15] LABS: Albumin 3.6 g/dL (3.2-5.2); Calcium 9.7 mg/dL (8.6-10.3); Potassium 3.6 mmol/L (3.5-5.0); Total Bilirubin 0.5 mg/dL (0.2-1.0)
[2020-04-09 17:21] LABS: Albumin/Globulin Ratio 1.1 (1-3); BUN/Creatinine Ratio 32.1 (8-20); C Reactive Protein 226.85 mg/L (<8.01); EGFR African American 56.8 (>60); EGFR Non-African American 46.9 (>60); Globulin 3.3 g/dL (2-4); Total Protein 6.9 g/dL (6.4-8.9)
[2020-04-09 17:23] LABS: INR 0.94 (0.82-1.09)
[2020-04-09] MEDS ORDERED: Azithromycin 500 mg/250 ml NS 500 MG/250 ML BAG IVPB ONE (17:46)
[2020-04-09] MEDS ORDERED: cefTRIAXone 1 gm/50 mL NS BAG 1 GM/50 ML BAG IV ONE (17:46)
[2020-04-09] MEDS ORDERED: GuaiFENesin DM 100 mg/10 mg in 5 ML UDC PO PRN (18:54)
[2020-04-09] MEDS ORDERED: Albuterol/Ipratropium NEB.SOL (2.5/0.5 MG) 3 ML NEB.SOLN INH PRN (19:01)
[2020-04-09] MEDS ORDERED: Polyethylene Glycol 3350 17 GM PACKET PO PRN (19:01)
[2020-04-09] MEDS ORDERED: methylPREDNISolone 125 mg 2 ML VIAL IV ONE (19:07)
[2020-04-09 21:06] LABS: Urine Appearance Clear; Urine Bilirubin Negative (Negative); Urine Blood Negative (Negative); Urine Color Yellow; Urine Glucose Negative (Negative); Urine Ketones Negative (Negative); Urine Nitrite Negative (Negative); Urine Protein Negative (Negative); Urine Specific Gravity 1.016 (1.010-1.030); Urine Urobilinogen Negative (Negative)
[2020-04-09] MEDS: Heparin 5000 UNITS/ML 1 mL VIAL SUBCUT SCH (21:53)
[2020-04-09 22:16] LABS: Ferritin 86.4 ng/mL (11-307)
[2020-04-09] MEDS ORDERED: hydrALAZINE 20 mg/ml 1 ML Vial IV IV SLOW PU PRN (23:25)
[2020-04-10] MEDS: Heparin 5000 UNITS/ML 1 mL VIAL SUBCUT SCH ×3 (05:38→21:55)
[2020-04-10 06:25] LABS: ABS Lymphocytes 0.5 10^3/ul (1.0-4.8); ABS Monocytes 0.1 10^3/ul (0-0.8); ABS Neutrophils 3.8 10^3/ul (1.5-7.7); Eosinophil % 0.1 %; Hematocrit 29 % (35-47); Hemoglobin 9.8 g/dL (12.0-16.0); Lymphocyte % 11.2 %; Mean Corpuscular HGB Conc 33 g/dL (31-36); Mean Corpuscular Hemoglobin 29 pg (27-31); Mean Corpuscular Volume 87 fL (80-97); Mean Platelet Volume 7.7 fL (7.4-10.4); Platelet Count 358 10^3/uL (150-450); Red Blood Count 3.38 10^6 /uL (3.70-4.87); Red Cell Distribution Width 15 % (10-15); White Blood Count 4.4 10^3/uL (3.5-10.8)
[2020-04-10 06:44] LABS: BUN/Creatinine Ratio 28.9 (8-20); Calcium 9.4 mg/dL (8.6-10.3); EGFR African American 51.9 (>60); EGFR Non-African American 42.9 (>60)
[2020-04-10] MEDS: DULoxetine DR 20 mg CAP PO SCH (11:02)
[2020-04-10] MEDS ORDERED: cefTRIAXone 1 gm/50 mL NS BAG 1 GM/50 ML BAG IVPB SCH (21:00)
[2020-04-11] MEDS: Heparin 5000 UNITS/ML 1 mL VIAL SUBCUT SCH ×2 (06:10→14:52)
[2020-04-11 06:26] LABS: ABS Lymphocytes 1.5 10^3/ul (1.0-4.8); ABS Monocytes 1.5 10^3/ul (0-0.8); Eosinophil % 0.1 %; Hematocrit 29 % (35-47); Hemoglobin 9.4 g/dL (12.0-16.0); Lymphocyte % 9.3 %; Mean Corpuscular HGB Conc 33 g/dL (31-36); Mean Corpuscular Hemoglobin 29 pg (27-31); Mean Corpuscular Volume 87 fL (80-97); Mean Platelet Volume 7.7 fL (7.4-10.4); Platelet Count 396 10^3/uL (150-450); Red Cell Distribution Width 15 % (10-15); White Blood Count 16.1 10^3/uL (3.5-10.8)
[2020-04-11 06:42] LABS: BUN/Creatinine Ratio 33.9 (8-20); Calcium 9.2 mg/dL (8.6-10.3); EGFR African American 58.6 (>60); EGFR Non-African American 48.4 (>60); Magnesium 2.3 mg/dL (1.9-2.7); Potassium 3.8 mmol/L (3.5-5.0)
[2020-04-11] MEDS: DULoxetine DR 20 mg CAP PO SCH (10:16)
[2020-04-11 14:41] VITALS: BP 144/51
== END 2020-04-11 16:18 | disposition home or self-care (01) ==
LOC: ED 14:52 → MED 14:52
PROVIDERS: ADMIT Pediatrics; ATTEND Internal Medicine

== ENCOUNTER 2020-09-12 04:03 | Inpatient (IN) ==
[2020-09-12 05:18] LABS: Hematocrit 32 % (35-47); Hemoglobin 10.6 g/dL (12.0-16.0); Mean Corpuscular HGB Conc 34 g/dL (31-36); Mean Corpuscular Hemoglobin 29 pg (27-31); Mean Corpuscular Volume 85 fL (80-97); Mean Platelet Volume 7.5 fL (7.4-10.4); Platelet Count 533 10^3/uL (150-450); Red Cell Distribution Width 18 % (10-15); White Blood Count 14.2 10^3/uL (3.5-10.8)
[2020-09-12 05:24] LABS: INR 0.96 (0.86-1.15)
[2020-09-12 05:35] LABS: PO2 Arterial 98 mmHg (80-100)
[2020-09-12 05:36] LABS: ALT 27 U/L (7-52); Albumin 3.9 g/dL (3.2-5.2); Albumin/Globulin Ratio 1.1 (1-3); Alkaline Phosphatase 121 U/L (35-149); Blood Urea Nitrogen 34 mg/dL (6-24); CO2 Carbon Dioxide 30 mmol/L (22-32); Calcium 9.4 mg/dL (8.6-10.3); Chloride 105 mmol/L (101-111); EGFR African American 54.4 (>60); Globulin 3.5 g/dL (2-4); Glucose 135 mg/dL (70-100); Sodium 138 mmol/L (135-145); Total Protein 7.4 g/dL (6.4-8.9)
[2020-09-12 05:38] LABS: PCO2 Arterial 93 mmHg (35-45)
[2020-09-12 05:42] LABS: Troponin I 0.36 ng/mL (<0.03)
[2020-09-12 05:54] LABS: Urine Appearance Cloudy; Urine Bilirubin Negative (Negative); Urine Blood Negative (Negative); Urine Color Yellow; Urine Glucose Negative (Negative); Urine Ketones Negative (Negative); Urine Nitrite Positive (Negative); Urine Protein Negative (Negative); Urine Specific Gravity 1.019 (1.002-1.030); Urine Urobilinogen Negative (Negative)
[2020-09-12] MEDS ORDERED: Albuterol/Ipratropium NEB.SOL (2.5/0.5 MG) 3 ML NEB.SOLN INH ONE (05:59)
[2020-09-12] MEDS ORDERED: Dexamethasone IV 4 MG/ML 5 ML VIAL (20 MG) IVPB ONE (06:00)
[2020-09-12 06:01] LABS: Urine Bacteria 1+ (Absent); Urine Red Blood Cell 1+(3-5/hpf) (Absent); Urine Squamous Epithelial Cell Present (Absent); Urine White Blood Cell 1+(6-10/hpf) (Absent)
[2020-09-12] MEDS ORDERED: Vancomycin 1,000 MG in NS 0.9% 250 ml 250 ML IVPB ONE (06:04)
[2020-09-12] MEDS ORDERED: Piperacillin/Tazobac ADVAN 3.375 GM in NS 0.9% 100 ml BAG 100 ML IV ONE (06:04)
[2020-09-12 06:06] LABS: Anion Gap 3 mmol/L (2-11); Potassium 4.3 mmol/L (3.5-5.0)
[2020-09-12 06:07] LABS: AST 28 U/L (13-39)
[2020-09-12] MEDS ORDERED: Ondansetron 4 mg VIAL 2 MG/ML 2 ml VIAL IV PRN (06:41)
[2020-09-12] MEDS ORDERED: Linezolid 600 MG IVPREMIX(*) 600 MG/300 ML BAG IVPB SCH (07:00)
[2020-09-12] MEDS ORDERED: Zosyn per Pharmacy NOTE FOLLOW UP SCH (07:00)
[2020-09-12] MEDS ORDERED: Morphine 2 MG/ML SYRINGE IV PRN (07:05)
[2020-09-12] MEDS ORDERED: LORazepam 2 mg VIAL 1 ml IV PUSH PRN (07:05)
[2020-09-12] MEDS ORDERED: NS 0.9% 250 ml 250 ML ONE (07:10)
[2020-09-12] MEDS ORDERED: Lorazepam PYXIS KEY PRN (07:30)
[2020-09-12 08:38] LABS: ABS Basophils 0.1 10^3/ul (0-0.2); ABS Eosinophils 0.4 10^3/ul (0-0.6); ABS Lymphocytes 2.8 10^3/ul (1.0-4.8); ABS Monocytes 1.8 10^3/ul (0-0.8); Eosinophil % 3.1 %; Lymphocyte % 19.7 %
[2020-09-12 09:09] VITALS: BP 146/61
== END 2020-09-12 09:41 | disposition expired | DRG 193 ==
LOC: ED 04:03 → MED 06:41
PROVIDERS: ADMIT Student in an Organized Health Care Education/Training Program; ATTEND Internal Medicine